=== PATIENT | female | born 1995 | race Caucasian/White ===

== ENCOUNTER 2021-08-12 08:40 | Inpatient (IN) | payer SELFPAY, OTHER ==
[2021-08-12] VITALS (44 sets, daily range): BP systolic 110–141; BP diastolic 57–95; PULSE 78–116; RESP 14; TEMP 36.1–36.6; O2SAT 98–100; BMI 23.9
[2021-08-12] MEDS: Lactated Ringers 1,000 ML 50 ML IV (09:00)
[2021-08-12 09:24] LABS: Absolute Lymphocyte Count 1.52 X10^3/uL (0.83-4.51); Absolute Neutrophil Count 8.1 X10^3/uL (2.0-7.7); Basophil# 0.03 X10^3/uL; Basophil% 0.3 % (0-1); Eosinophil# 0.11 X10^3/uL; Hematocrit 35.5 % (37-47); Hemoglobin 11.9 g/dL (12.0-15.0); Lymphocyte # 1.52 X10^3/ul (0.83-4.51); Lymphocyte % 14.2 % (19-41); Mean Corp Hgb Conc 33.5 g/dL (32-36); Mean Corpuscular Hgb 31.2 pg (27.0-32.0); Mean Corpuscular Volume 93.2 fL (81-99); Mean Platelet Vol. 13.5 fl (6.2-12.0); Monocyte# 0.89 X10^3/uL; Monocyte% 8.3 % (0-10); NRBC Flagged by Analyzer 0 % (0-5); Neutrophil % 75.6 % (47-70); Platelet Count 128 K/mm3 (150-450); RBC Distribution Width CV 13.9 % (11.6-14.6); Red Blood Count 3.81 M/mm3 (4.2-5.4); White Blood Count 10.7 K/mm3 (4.4-11.0)
[2021-08-12] MEDS: Lactated Ringers 500 ML 999 ML IV (12:20)
[2021-08-12] MEDS: fentaNYL-bupivacaine (epidural) 100 ML BAG EPIDURAL (13:16)
--- NOTE | 2021-08-12 13:50 | PCM.HP.OB ---
HPI - General General Date of Admission: 08/12/21 HPI Narrative WENDI RAPHAEL, is a 26 F who presents with ctxs. Maternal Data Information Final EMIR: 08/11/21 Gestational age: 40&1 PFSH [facility] Medical History (Updated 08/12/21 @ 13:[address] Tanvi Franco MD) 40 weeks gestation of Anemia Anxiety IBS (irritable bowel syndrome) Medical History no medical history Home Medications 08/12/21 [History Last Taken Unknown] ferrous sulfate 08/12/21 [History Last Taken Unknown] magnesium 08/12/21 [History Last Taken Unknown] Allergy/AdvReac Type Severity Reaction Status Date / Time No Known Allergies Allergy Verified 08/12/21 08:01 Family History no significant family his Surgical History no surgical history Social History Smoking Status: Former smoker History Elective abortions Hx Para 0 Spontaneous abortions Hx # Term Pregnancies Ectopic pregnancies Hx # Pregnancies Multiple births # of living children NST FHR Rate Baby A Baseline: 135 Variability:: Moderate Accelerations:: 15 x 15 Decelerations:: None Uterine Activity:: Q 3-4 minutes when tracing Vital Signs Vital Signs Vital Signs: 08/12/21 07:24 08/12/21 07:28 08/12/21 07:29 Temperature 97.5 F L Temperature Source Temporal Pulse Rate 91 Blood Pressure 119/72 BP Systolic 119 BP Diastolic 72 Pulse Ox 98 08/12/21 10:05 08/12/21 10:06 08/12/21 10:07 Temperature 97.3 F L Temperature Source Temporal Pulse Rate 85 Blood Pressure 119/72 BP Systolic 119 BP Diastolic 72 Pulse Ox 99 08/12/21 11:39 08/12/21 12:54 08/12/21 12:59 Temperature Temperature Source Pulse Rate 97 98 91 Blood Pressure 124/76 H 112/95 H BP Systolic 124 112 BP Diastolic 76 95 Pulse Ox 100 99 08/12/21 13:04 08/12/21 13:06 08/12/21 13:08 Temperature 97.3 F L Temperature Source Pulse Rate 87 86 Blood Pressure 124/60 H 119/71 BP Systolic 124 119 BP Diastolic 60 71 Pulse Ox 100 08/12/21 13:09 08/12/21 13:10 08/12/21 13:13 Temperature Temperature Source Temporal Pulse Rate 87 88 Blood Pressure 114/67 BP Systolic 114 BP Diastolic 67 Pulse Ox 99 08/12/21 13:14 08/12/21 13:18 08/12/21 13:19 Temperature Temperature Source Pulse Rate 91 89 88 Blood Pressure 115/70 BP Systolic 115 BP Diastolic 70 Pulse Ox 99 99 08/12/21 13:24 08/12/21 13:29 08/12/21 13:30 Temperature Temperature Source Pulse Rate 88 90 Blood Pressure 112/67 112/63 BP Systolic 112 112 BP Diastolic 67 63 Pulse Ox 99 100 Weight Weight: 153 lb 0.013 oz Body Mass Index (BMI) 23.9 Physical Exam Const alert and oriented x3 GI soft to palpation and non-tender Inspection: gravid Narrative: cvx - 12/12/0, AROM clear fluid Labs Labs Labs: Blood Type A NEGATIVE Antibody Screen NEGATIVE Hct 35.5 % (37-47) L Hgb 11.9 g/dL (12.0-15.0) L Assessment & Plan (1) 40 weeks gestation of : COMMENT: 40&1 PLAN: ADmit to L&D Expectant management GBS negative COVID negative Pain - epidural EFW - less than 4500g, patient with adequate pelvis
--- NOTE | 2021-08-12 17:58 | EX.PCM.OBRPT ---
Maternal Data Information Final EMIR: 08/11/21 Gestational age: 40&1 Vaginal Delivery Maternal Presentation Maternal Presentation: Active Labor Operative Information Date of Procedure: 08/12/21 Pre-Operative Diagnosis: Labor Post-Operative Diagnosis: Labor Surgery / Procedure Performed: Spontaneous Vaginal Delivery Type of Anesthesia: Epidural Estimated Blood Loss: 250ml Findings Description of Procedure: Patient prepped & draped when C/C/+2. She pushed well to deliver the head. head gently guided to allow delivery of anterior and posterior shoulders. No excess traction placed on head. Body delivered and 3VC clamped & cut in delayed fashion. Placenta delivered with gentle traction and good uterine tone obtained. Presentation: ANNE Amniotic Membrane Rupture Type: Artificial Amniotic Fluid Description: Clear Placental Delivery Description: Expressed Placenta Disposition: [facility] Specimen(s) Removed: Placenta Cord Vessel Description: 3 Vessels Cord Entanglement: None Infant A Gender: Female (Mei) (1 minute): 9 (5 minute): 9 Delayed Cord Clamping: Yes Post Vaginal Delivery Medications Given After Delivery: IV Pitocin Episiotomy Description: None Laceration: 1st degree (bilateral vaginal - repaired with 3-0 vicryl) Complication Complications: None
[2021-08-12] MEDS: Oxytocin 30 units/NS 500 ml 30 UNITS/500 ML IV.SOLN 334 UNITS IV (18:19)
[2021-08-13] VITALS (12 sets, daily range): BP systolic 109–125; BP diastolic 61–74; PULSE 77–101; RESP 16; TEMP 36.3–36.7; O2SAT 97–99
[2021-08-13] MEDS: Ibuprofen 600 MG Tablet PO ×4 (03:10→21:51)
--- NOTE | 2021-08-13 18:16 | PCM.PN.OB ---
Subjective Subjective No complaints Objective Data Objective Data Vital Signs: Vital Signs Temp Pulse Resp BP Pulse Ox 97.3 F L 98 16 109/65 97 08/13/21 17:30 08/13/21 17:31 08/13/21 17:30 08/13/21 17:31 08/13/21 12:30 Oxygen Delivery Method Room Air Weight: 153 lb 0.013 oz Body Mass Index (BMI) 23.9 Intake & Output: Intake and Output for Last 24 Hours 08/11/21 08/12/21 08/13/21 23:59 23:59 23:59 Intake Total 1999 / 1999 Output Total 1100 / 1100 Balance 900 / 900 Lab / Micro Data Result Diagrams: 08/12/21 09:00 Micro: Microbiology 08/12/21 09:00 Nasal Secretion SARS-CoV-2 Antigen (Rapid) - Final Physical Exam Const alert, oriented x3 and no apparent distress HEENT normocephalic GI soft to palpation, non-tender and non-distended GI Narrative: fundus firm, mid & below umbilicus Extremity normal to inspection and no calf tenderness Assessment & Plan (1) care following vaginal delivery: COMMENT: PPD#1 PLAN: Routine care
[2021-08-14] VITALS (7 sets, daily range): BP systolic 111–121; BP diastolic 60–65; PULSE 75–89; RESP 15–16; TEMP 36.2–36.4; O2SAT 97–98
[2021-08-14] MEDS: Ibuprofen 600 MG Tablet PO (06:41)
--- NOTE | 2021-08-14 11:14 | PCM.PN.OB ---
Subjective Subjective Denies complaints Objective Data Objective Data Vital Signs: Vital Signs Temp Pulse Resp BP Pulse Ox 97.5 F L 83 15 121/65 H 97 08/14/21 08:12 08/14/21 08:14 08/14/21 08:12 08/14/21 08:14 08/14/21 08:12 Oxygen Delivery Method Room Air Weight: 153 lb 0.013 oz Body Mass Index (BMI) 23.9 Intake & Output: Intake and Output for Last 24 Hours 08/12/21 08/13/21 08/14/21 23:59 23:59 23:59 Intake Total 1999 / 1999 Output Total 1100 / 1100 Balance 900 / 900 Lab / Micro Data Result Diagrams: 08/12/21 09:00 Micro: Microbiology 08/12/21 09:00 Nasal Secretion SARS-CoV-2 Antigen (Rapid) - Final Physical Exam Const alert, oriented x3 and no apparent distress HEENT normocephalic GI soft to palpation, non-tender and non-distended GI Narrative: fundus firm, mid & below umbilicus Extremity normal to inspection and no calf tenderness Assessment & Plan (1) care following vaginal delivery: COMMENT: PPD#2 PLAN: D/c to home today
--- NOTE | 2021-08-14 11:15 | PCM.DC ---
Discharge Instructions Diet Discharge Diet: No restrictions Activity Discharge Activity: May Shower May resume sexual activity in: 6 weeks Weight Bearing Status: Weight bearing as tolerated Dressing / Incision Call your doctor if you observe: Fever of 101 or Higher, Coldness, Increased Pain, Change in Color, Inability to urinate, Inability to have a bowel movement, Using more than 1 pad per hour, Shortness of breath, Dizziness, Fainting spells, Chest pain, Increased palpitations (irregular heartbeat), Calf discomfort and Uncontrolled pain Follow Up Care Please Follow Up With: Tanvi Franco MD When: Follow up in 2 and 6 weeks for visits. Test Results: Test results from this visit will be discussed in further detail at your follow-up appointment, if applicable. Discharge Plan Admission Admit Date/Time: 08/12/21 08:40 Primary Reason for Your Visit: Vaginal delivery Attending Provider: Tanvi Franco Discharge Orders/Prescriptions Prescriptions: New acetaminophen 500 mg Tablet 1,000 mg PO Q6H PRN PRN (Reason: Pain 1-10 Or Fever) Qty: 0 RF: 0 ibuprofen 600 mg Tablet 600 mg PO Q6H PRN PRN (Reason: Pain Score 1-3) Qty: 0 RF: 0 Continued magnesium 200 mg Tablet RF: 0 RF: 0 Discontinued ferrous sulfate RF: 0 Disposition Disposition (needs filled in before D/C Order can be placed): Home, Self Care
== END 2021-08-14 13:15 | disposition home or self-care (01) | DRG 807 ==
LOC: WPOUT 08:42 → WP 08:51
PROVIDERS: Admitting Provider Obstetrics & Gynecology; Referring Provider Advanced Practice Midwife; Visit Provider Advanced Practice Midwife
DX: O48.0 Post-term pregnancy (principal); Z37.0 Single live birth; O70.0 First degree perineal laceration during delivery; O99.02 Anemia complicating childbirth; Z20.822 Contact with and (suspected) exposure to COVID-19; Z87.891 Personal history of nicotine dependence; Z3A.40 40 weeks gestation of pregnancy
CPT/HCPCS: 59050; 85025; 86850; 86900; 86901; 87426; 99218; J7120; G0378

== ENCOUNTER → 2024-07-07 | Outpatient (CLI) | payer SELFPAY, OTHER ==
[2024-07-07 10:22] LABS: Absolute Lymphocyte Count 1.44 X10^3/uL (0.83-4.51); Absolute Neutrophil Count 5.8 X10^3/uL (2.0-7.7); Basophil# 0.03 X10^3/uL; Basophil% 0.4 % (0-1); Eosinophil# 0.09 X10^3/uL; Eosinophils% 1.1 % (0-5); Hematocrit 41.9 % (37-47); Hemoglobin 14.1 g/dL (12.0-15.0); Lymphocyte # 1.44 X10^3/ul (0.83-4.51); Lymphocyte % 18.3 % (19-41); Mean Corp Hgb Conc 33.7 g/dL (32-36); Mean Corpuscular Hgb 29.7 pg (27.0-32.0); Mean Corpuscular Volume 88.4 fL (81-99); Mean Platelet Vol. 11.8 fl (6.2-12.0); Monocyte# 0.52 X10^3/uL; Monocyte% 6.6 % (0-10); NRBC Flagged by Analyzer 0 % (0-5); Neutrophil # 5.77 X10^3/uL (2.7-7.7); Neutrophil % 73.2 % (47-70); Platelet Count 215 K/mm3 (150-450); RBC Distribution Width CV 12.2 % (11.6-14.6); RBC Distribution Width SD 39.3 fl (35.1-43.9); Red Blood Count 4.74 M/mm3 (4.2-5.4); White Blood Count 7.9 K/mm3 (4.4-11.0)
[2024-07-07 11:30] LABS: HIV - WCH Non-Reactive (Nonreactive); Hepatitis B Surface Antigen Non-Reactive (Nonreactive); Hepatitis C Antibody Non-Reactive (Nonreactive); Rubella IgG Reactive (Nonreactive); Syphilis Antibodies Non-reactive
[2024-07-08 20:07] LABS: Chlamydia By Nucleic Acid AMP Negative (Negative); Gonococcus By Nucleic Acid AMP Negative (Negative)
[2024-07-14 13:41] LABS: HPV Reflexed? NOT INDICATED
== END | disposition home or self-care (01) ==
LOC: BWCLAB 09:48
PROVIDERS: Referring Provider Advanced Practice Midwife; Visit Provider Advanced Practice Midwife
DX: O09.90 Supervision of high risk pregnancy, unspecified, unspecified trimester (principal); Z3A.00 Weeks of gestation of pregnancy not specified
CPT/HCPCS: 36415; 85025; 86703; 86762; 86780; 86803; 86850; 86900; 86901; 87086; 87088; 87340; 87491; 87591; 88175; G0145

== ENCOUNTER → 2024-09-24 | Outpatient (CLI) | payer OTHER, SELFPAY ==
--- NOTE | 2024-09-24 15:33 | US_ITS ---
PROCEDURE: ultrasound. REASON FOR EXAM: Cervical length and anatomy. COMPARISON: 07/07/2024 FINDINGS Single live intrauterine gestation in variable position. Cervical length 4.9 cm, closed. The placenta is posterior, grade 0. No retroplacental fluid collection. No gross anomalies are demonstrated. Biparietal diameter is 4.3 cm, at the 5th percentile. Head circumference is 17.5 cm, at the 29th percentile. Abdominal circumference is 15.9 cm, at the 68th percentile. Femur length is 3.1 cm, at the 19th percentile. There appears to be a three-vessel cord. heart rate 153 beats per minute. Facial features are grossly intact. Visualized extremities appear intact. cord insertion appears intact. Amniotic fluid level subjectively normal. No gross evidence of placenta previa. There appears to be a four-chamber heart. Questionable tiny echogenic cardiac focus versus artifact. US/OB Anatomy w/ Transvaginal IMPRESSION: Single live intrauterine gestation in variable position. Estimated gestational age by ultrasound 19 weeks, 5 days. No gross anomalies are demonstrated. Questionable tiny cardiac echogenic focus versus artifact. Please see measurements and percentiles as above. Amniotic fluid level is subjectively normal. Posterior placenta. Cervical length 4.9 cm, closed. Reading Location: [facility]
== END | disposition home or self-care (01) ==
LOC: US 15:31
PROVIDERS: Referring Provider Obstetrics & Gynecology; Visit Provider Obstetrics & Gynecology
DX: O09.90 Supervision of high risk pregnancy, unspecified, unspecified trimester (principal); Z3A.00 Weeks of gestation of pregnancy not specified
CPT/HCPCS: 76805; 76817

== ENCOUNTER → 2024-11-19 | Outpatient (CLI) | payer OTHER, SELFPAY ==
[2024-11-19 11:53] LABS: Absolute Lymphocyte Count 1.19 X10^3/uL (0.83-4.51); Absolute Neutrophil Count 5.9 X10^3/uL (2.0-7.7); Basophil# 0.03 X10^3/uL; Basophil% 0.4 % (0-1); Eosinophil# 0.08 X10^3/uL; Hematocrit 34.1 % (37-47); Hemoglobin 11.6 g/dL (12.0-15.0); Lymphocyte # 1.19 X10^3/ul (0.83-4.51); Lymphocyte % 15.5 % (19-41); Mean Corpuscular Hgb 31.4 pg (27.0-32.0); Mean Corpuscular Volume 92.4 fL (81-99); Mean Platelet Vol. 12.6 fl (6.2-12.0); Monocyte# 0.47 X10^3/uL; Monocyte% 6.1 % (0-10); NRBC Flagged by Analyzer 0 % (0-5); Neutrophil # 5.88 X10^3/uL (2.7-7.7); Neutrophil % 76.4 % (47-70); Platelet Count 149 K/mm3 (150-450); RBC Distribution Width CV 12.9 % (11.6-14.6); RBC Distribution Width SD 43.6 fl (35.1-43.9); Red Blood Count 3.69 M/mm3 (4.2-5.4); White Blood Count 7.7 K/mm3 (4.4-11.0)
[2024-11-19 12:19] LABS: Glucose Challenge Gest 1H 50g 151 mg/dL (70-140)
[2024-11-19 12:40] LABS: HIV Nonreactive (Nonreactive); Syphilis Antibodies Nonreactive (Nonreactive)
== END | disposition home or self-care (01) ==
PROVIDERS: Obstetrics & Gynecology; Referring Provider Advanced Practice Midwife; Visit Provider Advanced Practice Midwife
DX: O09.92 Supervision of high risk pregnancy, unspecified, second trimester (principal); Z3A.22 22 weeks gestation of pregnancy; Z13.1 Encounter for screening for diabetes mellitus
CPT/HCPCS: 36415; 82950; 85025; 86703; 86780; 86850; 86900; 86901

== ENCOUNTER → 2024-11-25 | Outpatient (CLI) | payer OTHER, SELFPAY ==
[2024-11-25 07:40] LABS: Glucose GTT-Gestation. Fasting 87 mg/dL (<105)
[2024-11-25 10:51] LABS: Glucose GTT-Gestational 1 Hr 116 mg/dL (<190)
[2024-11-25 11:00] LABS: Glucose GTT-Gestational 2 Hr 113 mg/dL (<165)
[2024-11-25 12:19] LABS: Glucose GTT-Gestational 3 Hr 95 L (<145)
== END | disposition home or self-care (01) ==
LOC: LAB 07:10
PROVIDERS: Referring Provider Advanced Practice Midwife; Visit Provider Advanced Practice Midwife
DX: Z13.1 Encounter for screening for diabetes mellitus (principal)
CPT/HCPCS: 36415; 82951; 82952

== ENCOUNTER → 2024-12-26 | Outpatient (CLI) | payer OTHER, SELFPAY ==
[2024-12-26 11:32] LABS: Absolute Lymphocyte Count 1.47 X10^3/uL (0.83-4.51); Basophil# 0.02 X10^3/uL; Basophil% 0.2 % (0-1); Eosinophil# 0.09 X10^3/uL; Hematocrit 33.4 % (37-47); Hemoglobin 11.2 g/dL (12.0-15.0); Lymphocyte # 1.47 X10^3/ul (0.83-4.51); Lymphocyte % 15.6 % (19-41); Mean Corp Hgb Conc 33.5 g/dL (32-36); Mean Corpuscular Hgb 31.4 pg (27.0-32.0); Mean Corpuscular Volume 93.6 fL (81-99); Mean Platelet Vol. 12.9 fl (6.2-12.0); Monocyte# 0.79 X10^3/uL; Monocyte% 8.4 % (0-10); NRBC Flagged by Analyzer 0 % (0-5); Neutrophil # 6.95 X10^3/uL (2.7-7.7); Neutrophil % 73.4 % (47-70); Platelet Count 144 K/mm3 (150-450); RBC Distribution Width SD 44.1 fl (35.1-43.9); Red Blood Count 3.57 M/mm3 (4.2-5.4); White Blood Count 9.5 K/mm3 (4.4-11.0)
== END | disposition home or self-care (01) ==
PROVIDERS: Obstetrics & Gynecology; Referring Provider Obstetrics & Gynecology; Visit Provider Obstetrics & Gynecology
DX: O99.119 Other diseases of the blood and blood-forming organs and certain disorders involving the immune mechanism complicating pregnancy, unspecified trimester (principal); D69.6 Thrombocytopenia, unspecified; Z3A.00 Weeks of gestation of pregnancy not specified
CPT/HCPCS: 36415; 85025

== ENCOUNTER → 2025-01-02 | Outpatient (CLI) | payer OTHER, SELFPAY ==
--- NOTE | 2025-01-02 08:40 | US_ITS ---
PROCEDURE: OB LIMITED WITH BIOMETRICS 01/02/2025 REASON FOR EXAM: UTERINE SIZE LESS THAN DATES TECHNIQUE: High resolution obstetric ultrasound performed using a 2D transducer. Standard views obtained, including biometry, anatomy survey, and Doppler studies. COMPARISON: September 24, 2024. FINDINGS Number: 1 Position: Vertex Placental Position: Posterior and not low-lying. Placental Abnormalities: None DIMENSIONS: Biparietal Diameter: 8.42 cm: 33 weeks and 6 days: 31%/ Head Circumference: 30.8 cm: 34 weeks and 2 days: 13 percentile/ Abdominal Circumference: 29.38 cm: 33 weeks and 3 days: 22nd percentile/ Femur Length: 6.77 cm: 34 weeks and 6 days: 48 percentile/ ESTIMATED WEIGHT: 2325 g plus/-349 g ESTIMATED WEIGHT PERCENTILE (24+ weeks): 30 ESTIMATED GESTATIONAL AGE: Baseline: 34 weeks and 4 days By Ultrasound: 33 weeks and 6 days ESTIMATED DATE OF DELIVERY: Baseline: February 09, 2025 By Ultrasound: February 14, 2025 BIOPHYSICAL ASSESSMENT: Amniotic Fluid Volume: 3.6 cm x 3 cm Amniotic Fluid Index: 9.7 (8-24 cm normal range) Cardiac Motion: 156 beats per minute (average) Trunk and Limb Motion: Present. MATERNAL ANATOMY: Adnexa: 3.1 cm Cervical Length (if measured): US/OB Limited With Biometrics IMPRESSION: Single live intrauterine gestation with a mean gestational age of 33 weeks and 6 days. Reading Location: [place] [id number]
== END | disposition home or self-care (01) ==
LOC: US 08:39
PROVIDERS: Referring Provider Advanced Practice Midwife; Visit Provider Advanced Practice Midwife
DX: O26.843 Uterine size-date discrepancy, third trimester (principal); Z3A.33 33 weeks gestation of pregnancy
CPT/HCPCS: 76816

== ENCOUNTER → 2025-01-12 | Outpatient (CLI) | payer OTHER, SELFPAY | END | disposition home or self-care (01) | LOC: LABSPEC 11:54 | PROVIDERS: Referring Provider Obstetrics & Gynecology; Visit Provider Obstetrics & Gynecology | DX: O09.90 Supervision of high risk pregnancy, unspecified, unspecified trimester (principal); Z3A.00 Weeks of gestation of pregnancy not specified | CPT/HCPCS: 87081 ==

== ENCOUNTER 2025-01-21 16:07 | Outpatient (CLI) | payer OTHER, SELFPAY ==
[2025-01-21 16:24] VITALS: BP 128/74; PULSE 94
[2025-01-21 16:25] VITALS: PULSE 99; RESP 16; TEMP 36.5; O2SAT 98
[2025-01-21 16:26] VITALS: BMI 24.1
--- NOTE | 2025-01-21 16:30 | US_ITS ---
PROCEDURE: OB LIMITED (NO BIOMETRICS) 01/21/2025 REASON FOR EXAM: NO BIOMETRICS [place] ONLY TECHNIQUE: OB LIMITED (NO BIOMETRICS) COMPARISON: 01/02/2025. FINDINGS Single live intrauterine . Cephalic presentation. heart rate of 141 beats per minute. Amniotic fluid index of 6.3 cm. Placenta grade 1. Right lateral and posteriorly located placenta. No evidence of previa. US/OB Limited (No Biometrics) IMPRESSION: [place] of 6.3 cm. Reading Location: [place] [id number]
--- NOTE | 2025-01-25 12:12 | OB.TRI.PN_ITS ---
Progress Notes Date of Service: 01/21/25 Progress Note: Patient presents for triage evaluation secondary to uterine size date discrepancy FHT: 135 Moderate variability reactive no decelerations category I tracing [place]: no regular Contractions Assessment and plan: uterine size date discrepancy 37 weeks db 6 cm Reactive NST, reassuring maternal and status patient discharged to home to follow- up as scheduled. See problem list details for additional plan information. Charges/Coding Procedures Urinary/Genital [id number]: [id number] non-stress test Interp
== END 2025-01-21 18:05 | disposition home or self-care (01) ==
LOC: WPOUT 16:17 → WP 16:17
PROVIDERS: Referring Provider Obstetrics & Gynecology; Visit Provider Obstetrics & Gynecology
DX: O26.843 Uterine size-date discrepancy, third trimester (principal); O99.113 Other diseases of the blood and blood-forming organs and certain disorders involving the immune mechanism complicating pregnancy, third trimester; D69.6 Thrombocytopenia, unspecified; O99.810 Abnormal glucose complicating pregnancy; O26.893 Other specified pregnancy related conditions, third trimester; Z67.91 Unspecified blood type, Rh negative; O09.93 Supervision of high risk pregnancy, unspecified, third trimester; Z3A.37 37 weeks gestation of pregnancy; Z87.891 Personal history of nicotine dependence
CPT/HCPCS: 59025; 59050; 76815; 99221; G0378

== ENCOUNTER → 2025-01-26 | Outpatient (CLI) | payer SELFPAY, OTHER ==
[2025-01-26 17:15] LABS: Absolute Lymphocyte Count 1.15 X10^3/uL (0.83-4.51); Basophil# 0.03 X10^3/uL; Basophil% 0.4 % (0-1); Eosinophil# 0.06 X10^3/uL; Eosinophils% 0.7 % (0-5); Hematocrit 35.1 % (37-47); Hemoglobin 11.5 g/dL (12.0-15.0); Lymphocyte # 1.15 X10^3/ul (0.83-4.51); Lymphocyte % 14.1 % (19-41); Mean Corp Hgb Conc 32.8 g/dL (32-36); Mean Corpuscular Hgb 31.3 pg (27.0-32.0); Mean Corpuscular Volume 95.4 fL (81-99); Mean Platelet Vol. 13.6 fl (6.2-12.0); Monocyte# 0.84 X10^3/uL; Monocyte% 10.3 % (0-10); NRBC Flagged by Analyzer 0 % (0-5); Neutrophil # 6.02 X10^3/uL (2.7-7.7); Neutrophil % 73.9 % (47-70); Platelet Count 125 K/mm3 (150-450); RBC Distribution Width CV 14.2 % (11.6-14.6); RBC Distribution Width SD 49.4 fl (35.1-43.9); Red Blood Count 3.68 M/mm3 (4.2-5.4); White Blood Count 8.2 K/mm3 (4.4-11.0)
== END | disposition home or self-care (01) ==
LOC: BWCLAB 14:51
PROVIDERS: Referring Provider Obstetrics & Gynecology; Visit Provider Obstetrics & Gynecology
DX: O99.119 Other diseases of the blood and blood-forming organs and certain disorders involving the immune mechanism complicating pregnancy, unspecified trimester (principal); D69.6 Thrombocytopenia, unspecified; Z3A.00 Weeks of gestation of pregnancy not specified
CPT/HCPCS: 36415; 85025

== ENCOUNTER 2025-01-27 07:19 | Inpatient (IN) | payer SELFPAY, OTHER ==
[2025-01-27] VITALS (50 sets, daily range): BP systolic 101–143; BP diastolic 53–95; PULSE 78–108; RESP 16–19; TEMP 36.2–36.9; O2SAT 96–100; BMI 24.0
--- OUTSIDE RECORDS SUMMARY | 2025-01-27 07:04 | XMS RPT_ITS | CCD ---
Author Organization [facility] CliniSyfl Care Team Providers Care Photography Coordinator Name Role Phone Ginny VIRGEN MD, Frank A Primary Care Provider Barbie vailable Mg oV DO, Dr. Caputo Attending Provider Dahlia Spring CNM Attending Provider [phone] Care Physician, No Primary Primary Care Provider Unavailable Care Physician, No Primary Referring Provider Un available Dr. Patito Arzola DO Referring Provider Dr. Jena Campos MD Attending Provider [phone] Dahlia Spring CNM Referring Provider [phone] Dr. Patito Arzola DO Attending Provider Dr. Jena Campos MD Referring Provider [phone] Care Physician, No Primary Primary Care Provider Unavailable Dahlia Spring CNM Attending Provider [phone] Care Physician, No Primary Referring Provider Un available Care Physician, No Primary Primary Care Provider Unavailable Dr. Patito Arzola DO Attending Provider Dr. Patito Arzola DO Referring Provider Dr. Jena Campos MD Other Provider [phone] Care Physician, No Primary Primary Care Unava ilable Dahlia Spring Referring Unavailable Dahlia Spring Attending Unavailable Care Physician, No Primary Primary Care Unava ilable Patito Arzola Attending Unavailabl e Care Physician, No Primary Referring Unava ilable Jena Campos Referring Unavailable Jena Campos Attending Unavailable Care Physician, No Primary Primary Care Unava ilable Dahlia Spring Attending Unavailable Patito Arzola Attending Unavailabl Dahlia Martin Referring Unavailable Dahlia Spring Attending Unavailable Jena Campos Referring Unavailable Jena Capmos Attending Unavailable Care Physician, No Primary Primary Care Unava ilable Jena Campos Attending Unavailable Care Physician, No Primary Primary Care Unava ilable Jena Campos Admitting Unavailable Mg VelPatito sawant Referring Unavailabl e Vande Velde, Patito Attending Unavailabl e Care Physician, No Primary Primary Care Unava ilable Vande Velde, Patito Attending Unavailabl e Vande Velde, Patito Referring Unavailabl e Care Physician, No Primary Primary Care Unava ilable Care Physician, No Primary Primary Care Unava ilable Care Physician, No Primary Referring Unava ilable Dahlia Spring Attending Unavailable Care Physician, No Primary Referring Unava ilable Bimale Gilda, Patito Attending Unavailabl e Care Physician, No Primary Primary Care Unava ilable Care Physician, No Primary Primary Care Unava ilable Care Physician, No Primary Referring Unava ilable Dahlia Spring Attending Unavailable Care Physician, No Primary Referring Unava ilable Dahlia Spring Attending Unavailable Care Physician, No Primary Primary Care Unava ilable Care Physician, No Primary Referring Unava ilable Care Physician, No Primary Primary Care Unava ilable Dahlia Spring Attending Unavailable Care Physician, No Primary Referring Unava ilable Care Physician, No Primary Primary Care Unava ilable Dahlia Spring Attending Unavailable Jena Campos Referring Unavailable Jnea Campos Attending Unavailable Care Physician, No Primary Primary Care Unava ilable Jena Campos Consulting Unavailable Care Physician, No Primary Referring Unava ilable Care Physician, No Primary Primary Care Unava ilable Dahlia Spring Attending Unavailable Care Physician, No Primary Referring Unava ilable Jena Campos Attending Unavailable Care Physician, No Primary Primary Care Unava ilable Care Physician, No Primary Referring Unava ilable Patito Arzola Attending Unavailabl e Care Physician, No Primary Primary Care Unava ilable Care Physician, No Primary Primary Care Unava ilable Dahlia Spring Referring Unavailable Dahlia Spring Attending Unavailable Dahlia Spring Attending Unavailable Dahlia Spring Referring Unavailable Care Physician, No Primary Primary Care Unava ilable Bimale VeldePatito Referring Unavailabl e Vande Velde, Patito Attending Unavailabl e Care Physician, No Primary Primary Care Unava ilable Allergies Allergy Classification Reported Allergen(s) Allergy Type Date of Onset Reaction(s) Facility (2 sources) Seasonal allergy Allergy to substance 4 Other: See Comments [facility] Medications Current Medications Medication Drug Class(es) Dates Sig (Normalized) Sig (Original) Iron (10 sources) Start: 06-27-2024 Pnv No.108-Tvgj-Ayvbnm No.10 (Pnv Tabs 20-1) 20 mg iron- 1 mg tablet Active 1 {tbl} PO DAILY June 27, 2024 1:00am Start: 06-27-2024 Pnv No.163-Iro n-Folate No.10 (Pnv Tabs 20-1) 20 mg iron- 1 mg tablet Active {tbl} PO DAILY June 27, 2024 1:00am iron supplement (7 sources) Start: 12-31-2024 iron supplemen t Active 1 {tbl} PO DAILY December 31, 2024 12:00am Start: 12-31-2024 iron supplemen t Active PO December 31, 2024 12:00am Magnesium (20 sources) Start: 06-27-2024 Magnesium 200 mg tablet Active 330 mg PO daily June 27, 2024 10:03am Start: 08-12-2021 End: 06-27-2024 Magnesium 200 mg Tablet Disc ontinued August 12, 2021 1:00am June 27, 2024 10:06am Completed/Discontinued Medications Medication Drug Class(es) Dates Sig (Normalized) Sig (Original) acetaminophen 500 mg oral tablet (10 sources) Start: 08-14-2021 End: 01-21-2025 take 1-10 tablets by mouth every six hours as needed for pain Acetaminophen 500 mg Tablet Discontinued 1000 mg PO EVERY 6 HOURS NEEDED as needed for Pain 1-10 Or Fever 0 August 14, 2021 1:00am January 21, 2025 4:29pm ferrous sulfate (12 sources) Start: 08-12-2021 End: 08-14-2021 ferrous sulfate Discontinued August 12, 2021 1:00am August 14, 2021 12:18pm take 1 tablet by jumana once daily at breakfast ferrous sulfate (IRON) 325 mg (65 mg iro n) tablet Take 325 mg by mouth daily with breakfast. Taking M W F 0 Active Comment on above: Take 325 mg by mouth daily with breakfast. Taking W F ibuprofen 600 mg oral tablet (10 sources) Nonsteroidal Anti-inflammatory Drug Start: 08-14-19 End: 06-27-20 take 1 tablet by mouth every six hours as needed for pain Ibuprofen 600 mg Tablet Discontinued 600 mg PO EVERY 6 HOURS NEEDED as needed for Pain Score 1-3 0 August 14, 2021 1:00am June 27, 2024 10:03am ondansetron 4 mg disintegrating oral tablet (10 sources) Serotonin-3 Receptor Antagonist Start: 07-07-20 End: 01-22-20 take 1 tablet by mouth every six hours as needed for nausea and vomiting Ondansetron 4 mg tablet,disintegrati ng Discontinued 4 mg PO EVERY 6 HOURS as needed for nausea and vomiting 90 July 07, 2024 1:00am January 21, 2025 4:28pm (10 sources) Start: 08-12-19 End: 06-27-20 Discontinued August 12, 2021 1:00am June 27, 2024 10:02am Udqfcskd-Wt-Zfa-Fe-FA ( VITAMIN) tab (2 sources) take 1 tablet by mouth once Gpniyspb-Kd-Tgn-Fe- FA ( VITAMIN) tab Take 1 tablet by mouth. 0 Active Comment on above: Take 1 tablet by jumana th. vitamin b6 100 mg oral tablet (10 sources) Start: 06-27-20 End: 01-22-20 take 1 tablet by mouth once daily Pyridoxine (Vitamin B6) 100 mg tablet Discontinued 100 mg PO daily June 27, 2024 1:00am January 21, 2025 4:28pm Problems Active Problems Problem Classification Problem Date Documented Da te Episodic/Chronic Anxiety disorders (10 sources) Anxiety; Translations: [Anxiety disorder, unspecified] 06-27-2024 Chronic Coagulation and hemorrhagic disorders (1 source) Thrombocytopenia, unspecified; Translations: [Thrombocytopenia, unspecified] Onset: Chronic Deficiency and other anemia (10 sources) Anemia; Translations: [Anemia, unspecified] 06-27-2024 Episodic Diabetes or abnormal glucose tolerance complicating ; childbirth; or the puerperium (20 sources) Abnormal glucose level; Translations: [Abnormal glucose complicating ] Onset: 5 11-20-2024 Episodic Comment on above: needs 3 hours passed 3 hour Nonmalignant breast conditions (1 source) Lump in upper outer quadrant of right breast; Translations: [Unspecified lump in the right breast, upper outer quadrant] Episodic Other complications of (20 sources) High risk ; Translations: [Supervision of high risk , unspecified, unspecified trimester] 11-19-2024 Episodic Comment on above: PRR, , EMIR 5, boy PC Mei, Siobhan. nl anatomy Other complications of (20 sources) Thrombocytopenic disorder; Translations: [Other diseases of the blood and blood-forming organs and certain disorders involving the immune mechanism complicating , unspecified trimester] 11-20-2024 Episodic Comment on above: repeat at 32 weeks repeat at 32 weeks - order in repeat at 32 weeks-s table-144 Other complications of (20 sources) RhD negative; Translations: [Other specified related conditions, unspecified trimester] 11-19-2024 Episodic Comment on above: Rhogam at 28 weeks a nd PRN, O- patient to bring paper to scan in at next visit. Other complications of (20 sources) Fundal height high for dates; Translations: [Uterine size-date discrepancy, unspecified trimester] 12-31-2024 Episodic Comment on above: ultrasound 01/02- % AC 21. normal DB Other complications of (1 source) Uterine size-date discrepancy, unspecified trimester; Translations: [Uterine size-date discrepancy, unspecified trimester] Onset: Episodic Other complications of (1 source) Other diseases of the blood and blood-forming organs and certain disorders involving the immune mechanism complicating , unspecified trimester; Translations: [Other diseases of the blood and blood-forming organs and certain disorders involving the immune mechanism complicating , unspecified trimester] Onset: 5 Episodic Other complications of (1 source) Other specified related conditions, unspecified trimester; Translations: [Other specified related conditions, unspecified trimester] Onset: Episodic Other complications of (1 source) Supervision of high risk , unspecified, unspecified trimester; Translations: [Supervision of high risk , unspecified, unspecified trimester] Onset: Episodic Other complications of (1 source) Supervision of high risk , unspecified, second trimester; Translations: [Supervision of high risk , unspecified, second trimester] Onset: 5 Episodic Other gastrointestinal disorders (12 sources) Irritable bowel syndrome; Translations: [Irritable bowel syndrome without diarrhea] Onset: 5 01-19-2015 Chronic Other inflammatory condition of skin (2 sources) Scalp psoriasis; 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, 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 04-06-2010 Chronic Other and delivery including normal (20 sources) care status; Translations: [Encounter for routine follow-up] 06-27-2024 Episodic Comment on above: PPD#2 declined NIPT & ntd, Carrier testing Other screening for suspected conditions (not mental disorders or infectious disease) (1 source) Encounter for screening for diabetes mellitus; Translations: [Encounter for screening for diabetes mellitus] Onset: 5 Episodic Residual codes; unclassified (10 sources) Gestation period, 40 weeks; Translations: [40 weeks gestation of ] 08-22-2021 Episodic Comment on above: 40&1 Residual codes; unclassified (1 source) Unspecified blood type, Rh negative; Translations: [Unspecified blood type, Rh negative] Onset: 5 Episodic Residual codes; unclassified (1 source) 38 weeks gestation of ; Translations: [38 weeks gestation of ] Onset: 5 Episodic Residual codes; unclassified (1 source) 37 weeks gestation of ; Translations: [37 weeks gestation of ] Onset: 5 Episodic Residual codes; unclassified (1 source) 36 weeks gestation of ; Translations: [36 weeks gestation of ] Onset: 5 Episodic Residual codes; unclassified (1 source) 26 weeks gestation of ; Translations: [26 weeks gestation of ] Onset: 5 Episodic Screening and history of mental health and substance abuse codes (20 sources) H/O: anxiety state; Translations: [Personal history of other mental and behavioral disorders] Onset: 1 01-06-2021 Episodic Comment on above: Quit 10 yr ago Short gestation; low weight; and growth retardation (2 sources) growth restriction; Translations: [ growth retardation, unspecified, unspecified [weight]] 01-26-2025 Episodic Comment on above: <2.5% on growth scan in our office and DB of 6.5 at 38 weeks. IOl set up for 01/27/25 Past or Other Problems Problem Classification Problem Date Documented Da te Episodic/Chronic Diabetes mellitus without complication (2 sources) Increased glucose level; Translations: [Other abnormal glucose] Onset: 05-26-2021 06-09-2021 Episodic Other complications of (1 source) Vomiting of , unspecified; Translations: [Vomiting of , 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7-07-2024 Episodic Residual codes; unclassified (2 sources) Down's child in family; Translations: [Family history of other congenital malformations, deformations and chromosomal abnormalities] Onset: 01-06-2021 01-06-2021 Episodic Residual codes; unclassified (1 source) 22 weeks gestation of ; Translations: [22 weeks gestation of ] Onset: 10-08-2024 Episodic Residual codes; unclassified (1 source) 18 weeks gestation of ; Translations: [18 weeks gestation of ] Onset: 09-10-2024 Episodic Residual codes; unclassified (1 source) 9 weeks gestation of ; Translations: [9 weeks gestation of ] Onset: 07-07-2024 Episodic Viral infection (2 sources) Herpes zoster without complication; Translations: [Zoster without complications] Onset: 05-23-2018 05-23-2018 Episodic Results Test Name Value Interpretation Reference Range Facility CBC W/Diff, Automatedon 01-05 Absolute Lymph 1.15 X10 3/uL Normal 0.83-4.51 [facility] Comment on above: Performed By: #### L 100.0100 ####[facility] [address] [place], [address] Absolute Neut 6.0 X10 3/uL Normal 2.0-7.7 [facility] Comment on above: Performed By: #### L 100.0100 ####[facility] [address] [facility] [place], [address] Basophils/100 WBC (Bld) 0.4 % Normal 0-1 [facility] Comment on above: Performed By: #### L 100.0100 ####[facility] [address] [place], [address] Eosinophils/100 WBC (Bld) 0.7 % Normal 0-5 [facility] Comment on above: Performed By: #### L 100.0100 ####[facility] [address] [place], [address] Erythrocyte distribution width (RBC) [Ratio] 14.2 % Normal 11.6-14.6 [facility] Comment on above: Performed By: #### L 100.0100 ####[facility] [address] [place], [address] Hematocrit (Bld) [Volume fraction] 35.1 % Low 37-47 [facility] Comment on above: Performed By: #### L 100.0100 ####[facility] [address] [place], [address] Hemoglobin (Bld) [Mass/Vol] 11.5 g/dL Low 12.0-15.0 [facility] Comment on above: Performed By: #### L 100.0100 ####[facility] [address] [place], [address] IG% 0.600 Normal 0.0-0.9 [facility] Comment on above: Result Comment: IG% - Immature Granulocytes (promyelocytes, myelocytes and metamyelocytes) > 1% indicates that a LEFT SHIFT is Present. Performed By: #### L 100.0100 ####[facility] [address] [place], [address] Lymphocytes/100 WBC (Bld) 14.1 % Low 19-41 [facility] Comment on above: Performed By: #### L 100.0100 ####[facility] [address] [place], [address] MCH (RBC) [Entitic mass] 31.3 pg Normal 27.0-32.0 [facility] Comment on above: Performed By: #### L 100.0100 ####[facility] [address] [place], [address] MCHC (RBC) [Mass/Vol] 32.8 g/dL Normal 32-36 [facility] Comment on above: Performed By: #### L 100.0100 ####[facility] [address] [place], [address] MCV (RBC) [Entitic vol] 95.4 fL Normal 81-99 [facility] Comment on above: Performed By: #### L 100.0100 ####[facility] [address] [place], [address] Monocytes/100 WBC (Bld) 10.3 % High 0-10 [facility] Comment on above: Performed By: #### L 100.0100 ####[facility] [address] [place], [address] Neutrophils/100 WBC (Bld) 73.9 % High 47-70 [facility] Comment on above: Performed By: #### L 100.0100 ####[facility] [address] [place], [address] Nucleated RBC (Bld) [#/Vol] 0 10*3/uL Normal 0-5 [facility] Comment on above: Performed By: #### L 100.0100 ####[facility] [address] [place], [address] Platelet mean volume (Bld) [Entitic vol] 13.6 fL High 6.2-12.0 [facility] Comment on above: Performed By: #### L 100.0100 ####[facility] [address] [place], [address] Platelets (Bld) [#/Vol] 125 10*3/uL Low 150-450 [facility] Comment on above: Performed By: #### L 100.0100 ####[facility] [address] [place], [address] RBC (Bld) [#/Vol] 3.68 10*6/uL Low 4.2-5.4 [facility] Comment on above: Performed By: #### L 100.0100 ####[facility] [address] [place], [address] RDW SD 49.4 fl High 35.1-43.9 [facility] Comment on above: Performed By: #### L 100.0100 ####[facility] [address] [place], [address] WBC (Bld) [#/Vol] 8.2 10*3/uL Normal 4.4-11.0 [facility] Comment on above: Performed By: #### L 100.0100 ####[facility] [address] [place], [address] Shop Teacher Office Visit Reporton 01-26-2025 Shop Teacher Office Visit Report [facility] [address], [address] [place] [address] OFFICE VISIT Date of Service: 01/26/25 MR#: [id number] Acct: [id number] Name: KATELYN ANTOINE Rep #: [id number] : 1995 Provider: Dr. Patito Schuler DO Age/Sex: 29/F Location: [facility] Status: Signed Intake Vital Signs 01/21/25 16:26 01/26/25 13:50 01/26/25 13:50 Height 5 ft 7 in 5 ft 7 in 5 ft 7 in Weight: 153 lb 4 oz BMI 24.0 BP 128/73 H Intake Visit Reasons: 38w, Amniotic fluid check per Power Screwdriver Operator Required: No Is patient in pain?: No Allergies No Known Allergies Allergy (Verified 01/26/25 13:50) Medications ???Medication ???Instructions ???Recorded ???Confirmed ???Type magnesium 200 mg tablet 330 mg PO QDAY 06/27/24 01/26/25 H istory vitamins no.163-iron 1 tab PO DAILY 06/27/24 01/26/25 H istory bis-gly 20 mg-folate no.10 1 mg tablet (PNV Tabs 20-1) iron supplement 1 tab PO DAILY 12/31/24 01/26/25 H istory Last Menstrual Period: 05/05/24 Zika: Zika virus screening: Negative : No PFSH PFSH Medical History Seasonal allergies care following vaginal delivery 40 weeks gestation of Anemia IBS (irritable bowel syndrome) Anxiety Social History adopted: No household members: spouse and children number of children: 1 current occupational status: unemployed current occupation: [employer] pets and animals: Yes pets and animals: dog(s) history of recent travel: Yes ([place]) out of state: Yes out of country: No sexually active: Yes Smoking Status: Former smoker how long ago did patient quit smokin years alcohol intake: current alcohol intake frequency: holidays/special occasions only details: Not while substance use type: does not use well-balanced diet: daily or most days caffeine: Yes Type: coffee Number of servings: 1 eating out: 1-3 times/week during the past year weight has: remained stable what type of physical activity do you participate in: none conrad/hinduism: Adventism seatbelt use: sometimes do you feel safe at home: Yes additional social history: - [place]- 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 Date Name GA/Weeks Outcome Route Bth Weight Infant Gen Labor Lgth Anesthesia Del Locatn Provider FOB 08/12/21 Mei 40 live - full term 6#12oz Female 12hr epidural [facility]han Delivery Date: 08/12/21 Last Updated by: Fide Landis no complications HPI 38w, Amniotic fluid check per Details: KATELYN ANTOINE is a 29 year old who presents for routine OB visit. OB Visit EMIR Calculator Estimated Delivery Date Method Current WG Current Estimate 02/09/25 Ultrasound #1 38w 0d Other Estimates 02/09/25 LMP (Certain) 38w 0d Expected Delivery Route/Plan Labor Preferences- CB/BF classes: [] labor support person: [] labor intervention preferences: [] pain management options preferred: [] cut cord/dad catch: [] : [] PP control planned: [] discussed possible routes of delivery and associated risks: [] special requests: [] Specific Issue/Plans Covid status: [] Flu vaccine: [] Tdap vaccine: [] Rhogam: [] LARC form signed: [] Problem list reviewed and updated with the most current plan of care details and appropriate orders placed. Relevant counseling for the gestational age provided. Continue routine care and follow up unless otherwise noted in visit notes/problem list details Initial Weight: 117 lb Date -???-???-???-???-?? ?-???-???-???-???-? ??-???-???- EGA Weight BP Urine Prot -???-???-???-???-?? ?-???-???-???-???-? ??-???-???- Glucose FHR FuHt Pres Dilation -???-???-???-???-?? ?-???-???-???-???-? ??-???-???- Effaced St Visit Note 07/07/24 -???-???-???-???-?? ?-???-???-???-???-? ??-???-???- 9w 0d 117 lb (+0 oz) 131/81 -???-???-???-???-?? ?-???-???-???-???-? ??-???-???- 175 -???-???-???-???-?? ?-???-???-???-???-? ??-???-???- KW- CRL cons with dates. declines NIPT. would like [facility] appts. 08/12/24 -???-???-???-???-?? ?-???-???-???-???-? ??-???-???- 14w 1d 116 lb 8 oz (-8 oz) 108/72 Negative -???-???-???-???-?? ?-???-???-???-???-? ??-???-???- Negative 170 -???-???-???-???-?? ?-???-???-???-???-? ??-???-???- JV- no compl aints today. bedside us shows 14 week IUP. Plans [facility] anatomy scan. 09/10/24 -???-???-???-???-?? ?-???-???-???-???-? ??-???-???- 18w 2d 124 lb (+7 lb) 118/68 Negative (more content not included)... Normal [facility] OB Triage Progress Noteon OB Triage Progress Note [facility] Medical Records Department [address] [place] [address] OB Triage Progress Note 01/25/25 1212 MR#: [id number] Acct: [id number] Name: KATELYN ANTOINE Rep #: [id number] : 1995 29 From: Jena Campos MD PCP: Care Physician,No Primary Status:DEP CLI Y DOS: Location: WPOUT Progress Notes Date of Service: 01/21/25 Progress Note: Patient presents for triage evaluation secondary to uterine size date discrepancy FHT: 135 Moderate variability reactive no decelerations category I tracing [place]: no regular Contractions Assessment and plan: uterine size date discrepancy 37 weeks db 6 cm Reactive NST, reassuring maternal and status patient discharged to home to follow-up as scheduled. See problem list details for additional plan information. Charges/Coding Procedures Urinary/Genital 52xxx-59xxx: 70061-31 non-stress test Interp 01/25/25 1213 Date Jena Campos MD Cosigner Signature (if applicable): Date __ CC: Dr. Jena Campos MD; No Primary Care Physician Signed Normal [facility] Laboratory - Chemistry and C hemistry - challengeOrdered By: Dahlia Spring on 01-21-2025 Glucose Ql (U) Negative [facility] Laboratory - UrinalysisOrder ed By: Dahlia Spring on 01-21-2025 Protein Ql (U) Negative [facility] OB Limited (No Biometrics)on 01-21-2025 OB Limited (No Biometrics) [facility] Imaging Services [address] [place], [place] [address] OB Limited (No Biometrics) MR#: [id number] Acct: [id number] Name: KATELYN ANTOINE Rep #: [id number] : 1995 F 29 From: Tc Rowland MD PCP: Care Physician,No Primary Status: DEP CLI Study: OB Limited (No Biometrics) Date of Exam: 01/21 Exam# [id number] Ordering Dr: Jena Campos PROCEDURE: OB LIMITED (NO BIOMETRICS) 01/21/2025 REASON FOR EXAM: NO BIOMETRICS DB ONLY TECHNIQUE: OB LIMITED (NO BIOMETRICS) COMPARISON: 01/02/2025. FINDINGS Single live intrauterine . Cephalic presentation. heart rate of 141 beats per minute. Amniotic fluid index of 6.3 cm. Placenta grade 1. Right lateral and posteriorly located placenta. No evidence of previa. US/OB Limited (No Biometrics) IMPRESSION: DB of 6.3 cm. Reading Location: [place] [address] CC: Dr. Jena Campos MD; No Primary Care Physician Business Operations Coordinator: Signed Normal [facility] Shop Teacher Office Visit Reporton 01-21-2025 Shop Teacher Office Visit Report [facility]'s [address], [address] [place] [id number] OFFICE VISIT Date of Service: 01/21/25 MR#: [id number] Acct: [id number] Name: KATELYN ANTOINE Rep #: [id number] : 1995 Provider: ZEFERINO Avina ams Age/Sex: 29/F Location: [facility] [place] Status: Signed Intake Vital Signs 12/17/24 09:11 01/12/25 09:09 01/21/25 09:50 01/21/25 09:57 Height 5 ft 7 in 5 ft 7 in 5 ft 7 in 5 ft 7 in Weight: 153 lb 6 oz BMI 24.0 BP 111/75 Intake Visit Reasons: 37 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: No Is patient in pain?: No Allergies No Known Allergies Allergy (Verified 01/21/25 09:50) Medications ???Medication ???Instructions ???Recorded ???Confirmed ???Type acetaminophen 500 mg tablet 1,000 mg (2 x 500 mg) PO Q6H PRN 0 08/14/21 01/21/25 Rx PRN Pain 1-10 Or Fever #0 tabs magnesium 200 mg tablet 330 mg PO QDAY 06/27/24 01/21/25 H istory vitamins no.163-iron tab PO DAILY 06/27/24 01/21/25 His tory bis-gly 20 mg-folate no.10 1 mg tablet (PNV Tabs 20-1) pyridoxine (vitamin B6) 100 mg 100 mg PO QDAY 06/27/24 01/21/25 H istory tablet ondansetron 4 mg disintegrating 4 mg PO Q6H PRN nausea and 07/07/ 4 01/21/25 Rx tablet vomiting #90 tabs iron supplement PO 12/31/24 01/21/25 History Last Menstrual Period: 05/05/24 Do you think of yourself as: straight/heterosexu al Current gender identity: female : No PFSH PFSH Medical History Seasonal allergies care following vaginal delivery 40 weeks gestation of Anemia IBS (irritable bowel syndrome) Anxiety Social History adopted: No household members: spouse and children number of children: 1 current occupational status: unemployed current occupation: [employer] pets and animals: Yes pets and animals: dog(s) history of recent travel: Yes ([place]) out of state: Yes out of country: No sexually active: Yes do you think of yourself as: straight/heterosexu al current gender identity: female Smoking Status: Former smoker how long ago did patient quit smokin years alcohol intake: current alcohol intake frequency: holidays/special occasions only details: Not while substance use type: does not use well-balanced diet: daily or most days caffeine: Yes Type: coffee Number of servings: 1 eating out: 1-3 times/week during the past year weight has: remained stable what type of physical activity do you participate in: none conrad/hinduism: Adventism seatbelt use: sometimes do you feel safe at home: Yes additional social history: - [place]- 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 Date Name GA/Weeks Outcome Route Bth Weight Gen Labor Lgth Anesthesia Del Locatn Provider FOB 08/12/21 Mei 40 live - full term 6#12oz Female 12hr epidural [facility] Delivery Date: 08/12/21 Last Updated by: Fide Landis no complications HPI 37 wk ob Details: KATELYN ANTOINE is a 29 year old who presents for routine OB visit. OB Visit EMIR Calculator Estimated Delivery Date Method Current WG Current Estimate 02/09/25 Ultrasound #1 37w 2d Other Estimates 02/09/25 LMP (Certain) 37w 2d Expected Delivery Route/Plan Labor Preferences- CB/BF classes: [] labor support person: [] labor intervention preferences: [] pain management options preferred: [] cut cord/dad catch: [] : [] PP control planned: [] discussed possible routes of delivery and associated risks: [] special requests: [] Specific Issue/Plans Covid status: [] Flu vaccine: [] Tdap vaccine: [] Rhogam: [] LARC form signed: [] Problem list reviewed and updated with the most current plan of care details and appropriate orders placed. Relevant counseling for the gestational age provided. Continue routine care and follow up unless otherwise noted in visit notes/problem list details Initial Weight: 117 lb Date -???-???-???-???-?? ?-???-???-???-???-? ??-???-???- EGA Weight BP Urine Prot -???-???-???-???-?? ?-???-???-???-???-? ??-???-???- Glucose FHR FuHt Pres Dilation -???-???-???-???-?? ?-???-???-???-???-? ??-???-???- Effaced St Visit Note 07/07/24 -???-???-???-???-?? ?-???-???-???-???-? ??-???-???- 9w 0d 117 lb (+0 oz) 131/81 -???-???-???-???-?? ?-???-???-???-???-? ??-???-???- 175 -???-???-???-???-?? ?-???-???-???-???-? ??-???-???- KW- CRL cons with dates. declines NIPT. would like Sd elvira appts. 08/12/24 -???-? (more content not included)... Normal [facility] Rule out Beta Strep (Grp. B) on 01-19-2025 JANE Group B Beta Streptococcus is not isolated. Normal [facility] Comment on above: Performed By: #### M 100.9123 #### [facility] Laboratory [address] [place], [address] Laboratory - Chemistry and C hemistry - challengeOrdered By: Patito Vo on 01-12-2025 Glucose Ql (U) Negative [facility] Laboratory - UrinalysisOrder ed By: Patito Vo on 01-12-2025 Protein Ql (U) Negative [facility] Shop Teacher Office Visit Reporton 01-12-2025 Shop Teacher Office Visit Report [facility]'s [address], [address] [place] [address] OFFICE VISIT Date of Service: 01/12/25 MR#: [id number] Acct: [id number] Name: KATELYN ANTOINE Rep #: [id number] : 1995 Provider: Dr. Patito Schuler DO Age/Sex: 29/F Location: [facility] [place] Status: Signed Intake Vital Signs 07/07/24 08:59 12/31/24 10:29 01/12/25 09:08 01/12/25 09:09 Height 5 ft 7 in 5 ft 7 in 5 ft 7 in 5 ft 7 in Weight: 152 lb 6 oz BMI 23.8 BP 113/80 Intake Visit Reasons: 36 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: No Is patient in pain?: No Allergies No Known Allergies Allergy (Verified 01/12/25 09:07) Medications ???Medication ???Instructions ???Recorded ???Confirmed ???Type acetaminophen 500 mg tablet 1,000 mg (2 x 500 mg) PO Q6H PRN 0 08/14/21 01/12/25 Rx PRN Pain 1-10 Or Fever #0 tabs magnesium 200 mg tablet 330 mg PO QDAY 06/27/24 01/12/25 H istory vitamins no.163-iron tab PO DAILY 06/27/24 01/12/25 His tory bis-gly 20 mg-folate no.10 1 mg tablet (PNV Tabs 20-1) pyridoxine (vitamin B6) 100 mg 100 mg PO QDAY 06/27/24 01/12/25 H istory tablet ondansetron 4 mg disintegrating 4 mg PO Q6H PRN nausea and 4 01/12/25 Rx tablet vomiting #90 tabs iron supplement PO 12/31/24 01/12/25 History Last Menstrual Period: 05/05/24 Zika: Zika virus screening: Negative : No PFSH PFSH Medical History Seasonal allergies care following vaginal delivery 40 weeks gestation of Anemia IBS (irritable bowel syndrome) Anxiety Social History adopted: No household members: spouse and children number of children: 1 current occupational status: unemployed current occupation: [employer] pets and animals: Yes pets and animals: dog(s) history of recent travel: Yes ([place]) out of state: Yes out of country: No sexually active: Yes Smoking Status: Former smoker how long ago did patient quit smokin years alcohol intake: current alcohol intake frequency: holidays/special occasions only details: Not while substance use type: does not use well-balanced diet: daily or most days caffeine: Yes Type: coffee Number of servings: 1 eating out: 1-3 times/week during the past year weight has: remained stable what type of physical activity do you participate in: none conrad/hinduism: Adventism seatbelt use: sometimes do you feel safe at home: Yes additional social history: - [place]- 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 Date Name GA/Weeks Outcome Route Bth Weight Infant Gen Labor Lgth Anesthesia Del Locatn Provider FOB 08/12/21 Mei 40 live - full term 6#12oz Female 12hr epidural [facility] Delivery Date: 08/12/21 Last Updated by: Fide Landis no complications HPI 36 wk ob Details: KATELYN ANTOINE is a 29 year old who presents for routine OB visit. OB Visit EMIR Calculator Estimated Delivery Date Method Current WG Current Estimate 02/09/25 Ultrasound #1 36w 0d Other Estimates 02/09/25 LMP (Certain) 36w 0d Expected Delivery Route/Plan Labor Preferences- CB/BF classes: [] labor support person: [] labor intervention preferences: [] pain management options preferred: [] cut cord/dad catch: [] : [] PP control planned: [] discussed possible routes of delivery and associated risks: [] special requests: [] Specific Issue/Plans Covid status: [] Flu vaccine: [] Tdap vaccine: [] Rhogam: [] LARC form signed: [] Problem list reviewed and updated with the most current plan of care details and appropriate orders placed. Relevant counseling for the gestational age provided. Continue routine care and follow up unless otherwise noted in visit notes/problem list details Initial Weight: 117 lb Date -???-???-???-???-?? ?-???-???-???-???-? ??-???-???- EGA Weight BP Urine Prot -???-???-???-???-?? ?-???-???-???-???-? ??-???-???- Glucose FHR FuHt Pres Dilation -???-???-???-???-?? ?-???-???-???-???-? ??-???-???- Effaced St Visit Note 07/07/24 -???-???-???-???-?? ?-???-???-???-???-? ??-???-???- 9w 0d 117 lb (+0 oz) 131/81 -???-???-???-???-?? ?-???-???-???-???-? ??-???-???- 175 -???-???-???-???-?? ?-???-???-???-???-? ??-???-???- KW- CRL cons with dates. declines NIPT. would like [facility] appts. 08/12/24 -???-???-???-???-?? ?-???-???-???-???-? ??-???-???- 14w 1d 116 lb 8 oz (-8 oz) 108/72 Negative -???-???-???-???-?? ?-? (more content not included)... Normal [facility] Screening beta-hemolytic Str eptococcus cultureOrdered By: Patito Vo on 01-12-2025 Beta-hemolytic Streptococcus culture Group B Beta Streptococcus is not isolated. [facility] OB Limited With Biometricson 01-02-2025 OB Limited With Biometrics [facility] Imaging Services [address] [place] [id number] OB Limited With Biometrics MR#: [id number] Acct: [id number] Name: KATELYN ANTOINE Rep #: [id number] : 1995 F 29 From: Lamin kelley MD PCP: Care Physician,No Primary Status: REG CLI Study: OB Limited With Biometrics Date of Exam: 01/02 Exam# [id number] Ordering Dr: Dahlia Spring CNM PROCEDURE: OB LIMITED WITH BIOMETRICS 01/02/2025 REASON FOR EXAM: UTERINE SIZE LESS THAN DATES TECHNIQUE: High resolution obstetric ultrasound performed using a 2D transducer. Standard views obtained, including biometry, anatomy survey, and Doppler studies. COMPARISON: September 24, 2024. FINDINGS Number: 1 Position: Vertex Placental Position: Posterior and not low-lying. Placental Abnormalities: None DIMENSIONS: Biparietal Diameter: 8.42 cm: 33 weeks and 6 days: 31%/ Head Circumference: 30.8 cm: 34 weeks and 2 days: 13 percentile/ Abdominal Circumference: 29.38 cm: 33 weeks and 3 days: 22nd percentile/ Femur Length: 6.77 cm: 34 weeks and 6 days: 48 percentile/ ESTIMATED WEIGHT: 2325 g plus/-349 g ESTIMATED WEIGHT PERCENTILE (24+ weeks): 30 ESTIMATED GESTATIONAL AGE: Baseline: 34 weeks and 4 days By Ultrasound: 33 weeks and 6 days ESTIMATED DATE OF DELIVERY: Baseline: February 09, 2025 By Ultrasound: February 14, 2025 BIOPHYSICAL ASSESSMENT: Amniotic Fluid Volume: 3.6 cm x 3 cm Amniotic Fluid Index: 9.7 (8-24 cm normal range) Cardiac Motion: 156 beats per minute (average) Trunk and Limb Motion: Present. MATERNAL ANATOMY: Adnexa: 3.1 cm Cervical Length (if measured): US/OB Limited With Biometrics IMPRESSION: Single live intrauterine gestation with a mean gestational age of 33 weeks and 6 days. Reading Location: [place] [address] CC: ZEFERINO Spring; No Primary Care Physician Business Operations Coordinator: Signed Normal [facility] Laboratory - Chemistry and C hemistry - challengeOrdered By: Dahlia Spring on 12-31-2024 Glucose Ql (U) Negative [facility] Laboratory - UrinalysisOrder ed By: Dahlia Spring on 12-31-2024 Protein Ql (U) Negative [facility] Shop Teacher Office Visit Reporton 12-31-2024 Shop Teacher Office Visit Report [facility]'s [address], [facility] [address] [place] [address] OFFICE VISIT Date of Service: 12/31/24 MR#: [id number] Acct: [id number] Name: KATELYN ANTOINE Rep #: [id number] : 1995 Provider: ZEFERINO Avina ams Age/Sex: 29/F Location[place] [facility] [place] Status: Signed Intake Vital Signs 12/17/24 09:11 12/31/24 10:23 12/31/24 10:29 Height 5 ft 7 in 5 ft 7 in 5 ft 7 in Weight: 149 lb 2 oz BMI 23.3 BP 114/76 Intake Visit Reasons: 34 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: No Is patient in pain?: No Allergies No Known Allergies Allergy (Verified 12/31/24 10:22) Medications ???Medication ???Instructions ???Recorded ???Confirmed ???Type acetaminophen 500 mg tablet 1,000 mg (2 x 500 mg) PO Q6H PRN 0 08/14/21 12/31/24 Rx PRN Pain 1-10 Or Fever #0 tabs magnesium 200 mg tablet 330 mg PO QDAY 06/27/24 12/31/24 H istory vitamins no.163-iron tab PO DAILY 06/27/24 12/31/24 His tory bis-gly 20 mg-folate no.10 1 mg tablet (PNV Tabs 20-1) pyridoxine (vitamin B6) 100 mg 100 mg PO QDAY 06/27/24 12/31/24 H istory tablet ondansetron 4 mg disintegrating 4 mg PO Q6H PRN nausea and 4 12/31/24 Rx tablet vomiting #90 tabs iron supplement PO 12/31/24 History Last Menstrual Period: 05/05/24 Do you think of yourself as: straight/heterosexu al Current gender identity: female Zika: Zika virus screening: Negative : No PFSH PFSH Medical History Seasonal allergies care following vaginal delivery 40 weeks gestation of Anemia IBS (irritable bowel syndrome) Anxiety Social History adopted: No household members: spouse and children number of children: 1 current occupational status: unemployed current occupation: [employer] pets and animals: Yes pets and animals: dog(s) history of recent travel: Yes ([place]) out of state: Yes out of country: No sexually active: Yes Smoking Status: Former smoker how long ago did patient quit smokin years alcohol intake: current alcohol intake frequency: holidays/special occasions only details: Not while substance use type: does not use well-balanced diet: daily or most days caffeine: Yes Type: coffee Number of servings: 1 eating out: 1-3 times/week during the past year weight has: remained stable what type of physical activity do you participate in: none conrad/hinduism: Adventism seatbelt use: sometimes do you feel safe at home: Yes additional social history: - [place]- 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 Date Name GA/Weeks Outcome Route Bth Weight Gen Labor Lgth Anesthesia Del Locatn Provider FOB 08/12/21 Mei 40 live - full term 6#12oz Female 12hr epidural [facility] Delivery Date: 08/12/21 Last Updated by: Fide Landis no complications HPI 34 wk ob Details: KATELYN ANTOINE is a 29 year old who presents for routine OB visit. OB Visit EMIR Calculator Estimated Delivery Date Method Current WG Current Estimate 02/09/25 Ultrasound #1 34w 2d Other Estimates 02/09/25 LMP (Certain) 34w 2d Expected Delivery Route/Plan Labor Preferences- CB/BF classes: [] labor support person: [] labor intervention preferences: [] pain management options preferred: [] cut cord/dad catch: [] : [] PP control planned: [] discussed possible routes of delivery and associated risks: [] special requests: [] Specific Issue/Plans Covid status: [] Flu vaccine: [] Tdap vaccine: [] Rhogam: [] LARC form signed: [] Problem list reviewed and updated with the most current plan of care details and appropriate orders placed. Relevant counseling for the gestational age provided. Continue routine care and follow up unless otherwise noted in visit notes/problem list details Initial Weight: 117 lb Date -???-???-???-???-?? ?-???-???-???-???-? ??-???-???- EGA Weight BP Urine Prot -???-???-???-???-?? ?-???-???-???-???-? ??-???-???- Glucose FHR FuHt Pres Dilation -???-???-???-???-?? ?-???-???-???-???-? ??-???-???- Effaced St Visit Note 07/07/24 -???-???-???-???-?? ?-???-???-???-???-? ??-???-???- 9w 0d 117 lb (+0 oz) 131/81 -???-???-???-???-?? ?-???-???-???-???-? ??-???-???- 175 -???-???-???-???-?? ?-???-???-???-???-? ??-???-???- KW- CRL cons with dates. declines NIPT. would like [facility] appts. 08/12/24 -???-???-???-???-?? ?-???-???-???-???-? ??-???-???- 14w 1d 116 lb 8 oz (-8 oz) 108/72 Ne (more content not included)... Normal [facility] Absolute lymphocyte countOrd ered By: Patito Vo on 12-26-2024 Lymphocytes Auto (Unsp spec) [#/Vol] 1.47 10*3/uL 0.83-4.51 [facility] Absolute neutrophil countOrd ered By: Patito Vo on 12-26-2024 Neutrophils (Bld) [#/Vol] 7.0 10*3/uL 2.0-7.7 [facility] Automated lymphocyte count a s percentage of total leukocytesOrdered By: Patito Vo on 12-26-2024 Lymphocytes/100 WBC Auto (Unsp spec) 15.6 % Low 19-41 [facility] Basophil percentageOrdered B y: Patito Vo on 12-26-2024 Basophils/100 WBC (Bld) 0.2 % 0-1 [facility] CBC W/Diff, Automatedon 12-05 Absolute Lymph 1.47 X10 3/uL Normal 0.83-4.51 [facility] Comment on above: Performed By: #### L 100.0100 #### [facility] [place], [address] Absolute Neut 7.0 X10 3/uL Normal 2.0-7.7 [facility] Comment on above: Performed By: #### L 100.0100 #### [facility] [address] [place], [address] Basophils/100 WBC (Bld) 0.2 % Normal 0-1 [facility] Comment on above: Performed By: #### L 100.0100 #### [facility] [address] [place], [address] Eosinophils/100 WBC (Bld) 1.0 % Normal 0-5 [facility] Comment on above: Performed By: #### L 100.0100 #### [facility] [address] [place], [address] Erythrocyte distribution width (RBC) [Ratio] 13.0 % Normal 11.6-14.6 [facility] Comment on above: Performed By: #### L 100.0100 #### [facility] [address] [place], [address] Hematocrit (Bld) [Volume fraction] 33.4 % Low 37-47 [facility] Comment on above: Performed By: #### L 100.0100 #### [facility] [address] [place], [address] Hemoglobin (Bld) [Mass/Vol] 11.2 g/dL Low 12.0-15.0 [facility] Comment on above: Performed By: #### L 100.0100 #### [facility] [address] [place], [address] IG% 1.400 High 0.0-0.9 [facility] Comment on above: Result Comment: IG% - Immature Granulocytes (promyelocytes, myelocytes and metamyelocytes) > 1% indicates that a LEFT SHIFT is Present. Performed By: #### L 100.0100 #### [facility] [address] [place], [address] Lymphocytes/100 WBC (Bld) 15.6 % Low 19-41 [facility] Comment on above: Performed By: #### L 100.0100 #### [facility] [address] [place], [address] MCH (RBC) [Entitic mass] 31.4 pg Normal 27.0-32.0 [facility] Comment on above: Performed By: #### L 100.0100 #### [facility] [address] [place], [address] MCHC (RBC) [Mass/Vol] 33.5 g/dL Normal 32-36 [facility] Comment on above: Performed By: #### L 100.0100 #### [facility] [address] [place], [address] MCV (RBC) [Entitic vol] 93.6 fL Normal 81-99 [facility] Comment on above: Performed By: #### L 100.0100 #### [facility] [address] [place], [address] Monocytes/100 WBC (Bld) 8.4 % Normal 0-10 [facility] Comment on above: Performed By: #### L 100.0100 #### [facility] [address] [place], [address] Neutrophils/100 WBC (Bld) 73.4 % High 47-70 [facility] Comment on above: Performed By: #### L 100.0100 #### [facility] [address] [place], [address] Nucleated RBC (Bld) [#/Vol] 0 10*3/uL Normal 0-5 [facility] Comment on above: Performed By: #### L 100.0100 #### [facility] [address] [place], [address] Platelet mean volume (Bld) [Entitic vol] 12.9 fL High 6.2-12.0 [facility] Comment on above: Performed By: #### L 100.0100 #### [facility] [address] [place], [address] Platelets (Bld) [#/Vol] 144 10*3/uL Low 150-450 [facility] Comment on above: Performed By: #### L 100.0100 #### [facility] [address] [place], [address] RBC (Bld) [#/Vol] 3.57 10*6/uL Low 4.2-5.4 [facility] Comment on above: Performed By: #### L 100.0100 #### [facility] [address] [place], [address] RDW SD 44.1 fl High 35.1-43.9 [facility] Comment on above: Performed By: #### L 100.0100 #### [facility] [address] [place], [address] WBC (Bld) [#/Vol] 9.5 10*3/uL Normal 4.4-11.0 [facility] Comment on above: Performed By: #### L 100.0100 #### [facility] [address] [place], [address] Eosinophil percentageOrdered By: Patito Vo on 12-26-2024 Eosinophils/100 WBC (Bld) 1.0 % 0-5 [facility] Erythrocyte distribution wid th ratioOrdered By: Patito Vo on 12-26-2024 Erythrocyte distribution width (RBC) [Ratio] 13.0 % 11.6-14.6 [facility] Erythrocyte distribution wid th standard deviationOrdered By: Patito Vo on 12-26-2024 Erythrocyte distribution width (RBC) [Ratio] 44.1 fl High 35.1-43.9 [facility] Hematocrit Auto (Bld) [Volum e fraction]Ordered By: Patito Vo on 12-26-2024 Hematocrit (Bld) [Volume fraction] 33.4 % Low 37-47 [facility] Hemoglobin measurementOrdere d By: Patito Vo on 12-26-2024 Hemoglobin (Bld) [Mass/Vol] 11.2 g/dL Low 12.0-15.0 [facility] Immature granulocytes/100 WB C Auto (Bld)Ordered By: Patito Vo on 12-26-2024 Immature granulocytes/100 WBC (Bld) 1.400 % High 0.0-0.9 [facility] Comment on above: IG% - Immature Granu locytes (promyelocytes, myelocytes and metamyelocytes) > 1% indicates that a LEFT SHIFT is Present. MCV (mean corpuscular volume ) determinationOrdered By: Patito Vo on 12-26-2024 MCV (RBC) [Entitic vol] 93.6 fL 81-99 [facility] Mean corpuscular hemoglobin (MCH) determinationOrdered By: Patito Vo on 12-26-2024 MCH (RBC) [Entitic mass] 31.4 pg 27.0-32.0 [facility] Mean corpuscular hemoglobin concentration (MCHC) determinationOrdered By: Patito Vo on 12-26-2024 MCHC (RBC) [Mass/Vol] 33.5 g/dL 32-36 [facility] Mean platelet volume determi nationOrdered By: Patito Vo on 12-26-2024 Platelet mean volume (Bld) [Entitic vol] 12.9 fL High 6.2-12.0 [facility] Monocyte percentageOrdered B y: Patito Vo on 12-26-2024 Monocytes/100 WBC (Bld) 8.4 % 0-10 [facility] Neutrophil percentageOrdered By: Patito Vo on 12-26-2024 Neutrophils/100 WBC (Bld) 73.4 % High 47-70 [facility] Nucleated red blood cell per centageOrdered By: Patito Vo on 12-26-2024 Nucleated RBC/100 WBC (Bld) [Ratio] 0 % 0-5 [facility] Platelet countOrdered By: Kwame Vo on 12-26-2024 Platelets (Bld) [#/Vol] 144 10*3/uL Low 150-450 [facility] RBC Auto (Bld) [#/Vol]Ordere d By: Patito Gilda on 12-26-2024 RBC (Bld) [#/Vol] 3.57 10*6/uL Low 4.2-5.4 [facility] White blood cell (WBC) count Ordered By: Patito Vo on 12-26-2024 WBC (Bld) [#/Vol] 9.5 10*3/uL 4.4-11.0 [facility] - Chemistry and C hemistry - challengeOrdered By: Dahlia Spring on 12-17-2024 Glucose Ql (U) Negative [facility] - UrinalysisOrder ed By: Dahlia Spring on 12-17-2024 Protein Ql (U) Negative [facility] Shop Teacher Office Visit Reporton 12-17-2024 Shop Teacher Office Visit Report [facility]'s [address], [address] [place] [address] OFFICE VISIT Date of Service: 12/17/24 MR#: [id number] Acct: [id number] Name: KATELYN ANTOINE Rep #: [id number] : 1995 Provider: ZEFERINO Avina ams Age/Sex: 29/F Location: [facility] [place] Status: Signed Intake Vital Signs 07/07/24 08:59 12/01/24 09:00 12/17/24 09:09 12/17/24 09:11 Height 5 ft 7 in 5 ft 7 in 5 ft 7 in 5 ft 7 in Weight: 145 lb 2 oz BMI 22.7 BP 116/75 Intake Visit 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 Is patient in pain?: No Allergies No Known Allergies Allergy (Verified 12/17/24 09:10) Medications ???Medication ???Instructions ???Recorded ???Confirmed ???Type acetaminophen 500 mg tablet 1,000 mg (2 x 500 mg) PO Q6H PRN 0 08/14/21 12/17/24 Rx PRN Pain 1-10 Or Fever #0 tabs magnesium 200 mg tablet 330 mg PO QDAY 06/27/24 12/17/24 H istory vitamins no.163-iron tab PO DAILY 06/27/24 12/17/24 His tory bis-gly 20 mg-folate no.10 1 mg tablet (PNV Tabs 20-1) pyridoxine (vitamin B6) 100 mg 100 mg PO QDAY 06/27/24 12/17/24 H istory tablet ondansetron 4 mg disintegrating 4 mg PO Q6H PRN nausea and 4 12/17/24 Rx tablet vomiting #90 tabs Last Menstrual Period: 05/05/24 Do you think of yourself as: straight/heterosexu al Current gender identity: female Zika: Zika virus screening: Negative : No PFSH PFSH Medical History Seasonal allergies care following vaginal delivery 40 weeks gestation of Anemia IBS (irritable bowel syndrome) Anxiety Social History adopted: No household members: spouse and children number of children: 1 current occupational status: unemployed current occupation: [employer] pets and animals: Yes pets and animals: dog(s) history of recent travel: Yes ([place]) out of state: Yes out of country: No sexually active: Yes Smoking Status: Former smoker how long ago did patient quit smokin years alcohol intake: current alcohol intake frequency: holidays/special occasions only details: Not while substance use type: does not use well-balanced diet: daily or most days caffeine: Yes Type: coffee Number of servings: 1 eating out: 1-3 times/week during the past year weight has: remained stable what type of physical activity do you participate in: none conrad/hinduism: Adventism seatbelt use: sometimes do you feel safe at home: Yes additional social history: - [place]- 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 Date Name GA/Weeks Outcome Route Bth Weight Infant Gen Labor Lgth Anesthesia Del Locatn Provider FOB 08/12/21 Mei 40 live - full term 6#12oz Female 12hr epidural [facility] Ca gabi C[facility] Delivery Date: 08/12/21 Last Updated by: Fide Landis no complications HPI 32 wk ob Details: KATELYN ANTOINE is a 29 year old who presents for routine OB visit. OB Visit EMIR Calculator Estimated Delivery Date Method Current WG Current Estimate 02/09/25 Ultrasound #1 32w 2d Other Estimates 02/09/25 LMP (Certain) 32w 2d Expected Delivery Route/Plan Labor Preferences- CB/BF classes: [] labor support person: [] labor intervention preferences: [] pain management options preferred: [] cut cord/dad catch: [] : [] PP control planned: [] discussed possible routes of delivery and associated risks: [] special requests: [] Specific Issue/Plans Covid status: [] Flu vaccine: [] Tdap vaccine: [] Rhogam: [] LARC form signed: [] Problem list reviewed and updated with the most current plan of care details and appropriate orders placed. Relevant counseling for the gestational age provided. Continue routine care and follow up unless otherwise noted in visit notes/problem list details Initial Weight: 117 lb Date -???-???-???-???-?? ?-???-???-???-???-? ??-???-???- EGA Weight BP Urine Prot -???-???-???-???-?? ?-???-???-???-???-? ??-???-???- Glucose FHR FuHt Pres Dilation -???-???-???-???-?? ?-???-???-???-???-? ??-???-???- Effaced St Visit Note 07/07/24 -???-???-???-???-?? ?-???-???-???-???-? ??-???-???- 9w 0d 117 lb (+0 oz) 131/81 -???-???-???-???-?? ?-???-???-???-???-? ??-???-???- 175 -???-???-???-???-?? ?-???-???-???-???-? ??-???-???- KW- CRL cons with dates. declines NIPT. would like [facility] appts. 08/12/24 -???-???-???-???-?? ?-???-???-???-???-? ??-???-???- 14w 1d 116 lb 8 oz (-8 oz) 108/72 Negative -??? (more content not included)... Normal [facility] - Chemistry and C hemistry - challengeOrdered By: Patito Vo on 12-01-2024 Glucose Ql (U) Negative [facility] - UrinalysisOrder ed By: Patito Vo on 12-01-2024 Protein Ql (U) Negative [facility] Shop Teacher Office Visit Reporton 12-01-2024 Shop Teacher Office Visit Report [facility]'s [address], [address] [place] [address] OFFICE VISIT Date of Service: 12/01/24 MR#: [id number] Acct: [id number] Name: KATELYN ANTOINE Rep #: [id number] : 1995 Provider: Dr. Patito Schuler DO Age/Sex: 29/F Location: [facility] [place] Status: Signed Intake Vital Signs 07/07/24 08:59 11/19/24 08:49 12/01/24 08:58 12/01/24 09:00 Height 5 ft 7 in 5 ft 7 in 5 ft 7 in 5 ft 7 in Weight: 142 lb 6 oz BMI 22.3 BP 103/71 Intake Visit Reasons: 30 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: No Is patient in pain?: No Allergies No Known Allergies Allergy (Verified 12/01/24 08:58) Medications ???Medication ???Instructions ???Recorded ???Confirmed ???Type acetaminophen 500 mg tablet 1,000 mg (2 x 500 mg) PO Q6H PRN 0 08/14/21 12/01/24 Rx PRN Pain 1-10 Or Fever #0 tabs magnesium 200 mg tablet 330 mg PO QDAY 06/27/24 12/01/24 H istory vitamins no.163-iron tab PO DAILY 06/27/24 12/01/24 His tory bis-gly 20 mg-folate no.10 1 mg tablet (PNV Tabs 20-1) pyridoxine (vitamin B6) 100 mg 100 mg PO QDAY 06/27/24 12/01/24 H istory tablet ondansetron 4 mg disintegrating 4 mg PO Q6H PRN nausea and 4 12/01/24 Rx tablet vomiting #90 tabs Last Menstrual Period: 05/05/24 Zika: Zika virus screening: Negative : No [facility] PFSH Medical History Seasonal allergies care following vaginal delivery 40 weeks gestation of Anemia IBS (irritable bowel syndrome) Anxiety Social History adopted: No household members: spouse and children number of children: 1 current occupational status: unemployed current occupation: [employer] pets and animals: Yes pets and animals: dog(s) history of recent travel: Yes ([place]) out of state: Yes out of country: No sexually active: Yes Smoking Status: Former smoker how long ago did patient quit smokin years alcohol intake: current alcohol intake frequency: holidays/special occasions only details: Not while substance use type: does not use well-balanced diet: daily or most days caffeine: Yes Type: coffee Number of servings: 1 eating out: 1-3 times/week during the past year weight has: remained stable what type of physical activity do you participate in: none conrad/hinduism: Adventism seatbelt use: sometimes do you feel safe at home: Yes additional social history: - [place]- 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 Date Name GA/Weeks Outcome Route Bth Weight Infant Gen Labor Lgth Anesthesia Del Locatn Provider FOB 08/12/21 Mei 40 live - full term 6#12oz Female 12hr epidural [facility] Serina [facility]ulp [facility] Delivery Date: 08/12/21 Last Updated by: Fide Landis no complications HPI 30 wk ob Details: KATELYN ANTOINE is a 29 year old who presents for routine OB visit. OB Visit EMIR Calculator Estimated Delivery Date Method Current WG Current Estimate 02/09/25 Ultrasound #1 30w 0d Other Estimates 02/09/25 LMP (Certain) 30w 0d Expected Delivery Route/Plan Labor Preferences- CB/BF classes: [] labor support person: [] labor intervention preferences: [] pain management options preferred: [] cut cord/dad catch: [] : [] PP control planned: [] discussed possible routes of delivery and associated risks: [] special requests: [] Specific Issue/Plans Covid status: [] Flu vaccine: [] Tdap vaccine: [] Rhogam: [] LARC form signed: [] Problem list reviewed and updated with the most current plan of care details and appropriate orders placed. Relevant counseling for the gestational age provided. Continue routine care and follow up unless otherwise noted in visit notes/problem list details Initial Weight: 117 lb Date -???-???-???-???-?? ?-???-???-???-???-? ??-???-???- EGA Weight BP Urine Prot -???-???-???-???-?? ?-???-???-???-???-? ??-???-???- Glucose FHR FuHt Pres Dilation -???-???-???-???-?? ?-???-???-???-???-? ??-???-???- Effaced St Visit Note 07/07/24 -???-???-???-???-?? ?-???-???-???-???-? ??-???-???- 9w 0d 117 lb (+0 oz) 131/81 -???-???-???-???-?? ?-???-???-???-???-? ??-???-???- 175 -???-???-???-???-?? ?-???-???-???-???-? ??-???-???- KW- CRL cons with dates. declines NIPT. would like [facility] appts. 08/12/24 -???-???-???-???-?? ?-???-???-???-???-? ??-???-???- 14w 1d 116 lb 8 oz (-8 oz) 108/72 Negative -???-???-???-???-?? ?-???-???-???-???-? ??-???-???- Negative 170 -??? (more content not included)... Normal [facility] Gestational GTT 3HR 100gon 0 11-25-2024 3HR GTT- GEST. Normal [facility] Comment on above: Order Comment: Y Result Comment: FAST ING 87 Col: 11/25/24 0713 GLUCOSE TOLERANCE TEST FOR Reference Interval GESTATIONAL DIABETES Fasting <105 mg/dL 1 hour <190 mg/dl 2 hour <165 mg/dl 3 hour <145 mg/dl 1 HR GLU 116 Col: 11/25/24 0849 2 HR GLU 113 Col: 11/25/24 0949 3 HR GLU 95 Col: 11/25/24 1114 Performed By: #### L 500.4710 #### [facility] [place], [address] Quantitative serum or plasma 3 hour gestational glucose tolerance panelOrdered By: Dahlia Spring on 11-25-2024 Glucose tolerance 3 hours gestational panel See comment [facility] Comment on above: FASTING 87 Col: 11/05 09/30 0713GLUCOSE TOLERANCE TEST FOR Reference Interval GESTATIONAL DIABETES Fasting <105 mg/dL 1 hour <190 mg/dl 2 hour <165 mg/dl 3 hour <145 mg/dl 1 HR GLU 116 Col: 11/25/24 0849 2 HR GLU 113 Col: 11/25/24 0949 3 HR GLU 95 Col: 11/25/24 1114 Absolute lymphocyte countOrd ered By: Dahlia Spring on 11-19-2024 Lymphocytes Auto (Unsp spec) [#/Vol] 1.19 10*3/uL 0.83-4.51 [facility] Absolute neutrophil countOrd ered By: Dahlia Spring on 11-19-2024 Neutrophils (Bld) [#/Vol] 5.9 10*3/uL 2.0-7.7 [facility] Automated lymphocyte count a s percentage of total leukocytesOrdered By: Dahlia Spring on 11-19-2024 Lymphocytes/100 WBC Auto (Unsp spec) 15.5 % Low 19-41 [facility] Basophil percentageOrdered B y: Dahlia Spring on 11-19-2024 Basophils/100 WBC (Bld) 0.4 % 0-1 [facility] CBC W/Diff, Automatedon 11-04 Absolute Lymph 1.19 X10 3/uL Normal 0.83-4.51 [facility] Comment on above: Performed By: #### L 501.0250, BTS, L100.0100 #### [facility] [address] [place], [address] Absolute Neut 5.9 X10 3/uL Normal 2.0-7.7 [facility] Comment on above: Performed By: #### L 501.0250, BTS, L100.0100 #### [facility] [address] [place], [address] Basophils/100 WBC (Bld) 0.4 % Normal 0-1 [facility] Comment on above: Performed By: #### L 501.0250, BTS, L100.0100 #### [facility] [address] [place], [address] Eosinophils/100 WBC (Bld) 1.0 % Normal 0-5 [facility] Comment on above: Performed By: #### L 501.0250, BTS, L100.0100 #### [facility] [address] [place], [address] Erythrocyte distribution width (RBC) [Ratio] 12.9 % Normal 11.6-14.6 [facility] Comment on above: Performed By: #### L 501.0250, BTS, L100.0100 #### [facility] [address] [place], [address] Hematocrit (Bld) [Volume fraction] 34.1 % Low 37-47 [facility] Comment on above: Performed By: #### L 501.0250, BTS, L100.0100 #### [facility] [address] [place], [address] Hemoglobin (Bld) [Mass/Vol] 11.6 g/dL Low 12.0-15.0 [facility] Comment on above: Performed By: #### L 501.0250, BTS, L100.0100 #### [facility] [address] [place], [address] IG% 0.600 Normal 0.0-0.9 [facility] Comment on above: Result Comment: IG% - Immature Granulocytes (promyelocytes, myelocytes and metamyelocytes) > 1% indicates that a LEFT SHIFT is Present. Performed By: #### L 501.0250, BTS, L100.0100 #### [facility] [address] [place], [address] Lymphocytes/100 WBC (Bld) 15.5 % Low 19-41 [facility] Comment on above: Performed By: #### L 501.0250, BTS, L100.0100 #### [facility] [address] [place], [address] MCH (RBC) [Entitic mass] 31.4 pg Normal 27.0-32.0 [facility] Comment on above: Performed By: #### L 501.0250, BTS, L100.0100 #### [facility] [address] [place], [address] MCHC (RBC) [Mass/Vol] 34.0 g/dL Normal 32-36 [facility] Comment on above: Performed By: #### L 501.0250, BTS, L100.0100 #### [facility] [address] [place], [address] MCV (RBC) [Entitic vol] 92.4 fL Normal 81-99 [facility] Comment on above: Performed By: #### L 501.0250, BTS, L100.0100 #### [facility] [address] [place], [address] Monocytes/100 WBC (Bld) 6.1 % Normal 0-10 [facility] Comment on above: Performed By: #### L 501.0250, BTS, L100.0100 #### [facility] [address] [place], [address] Neutrophils/100 WBC (Bld) 76.4 % High 47-70 [facility] Comment on above: Performed By: #### L 501.0250, BTS, L100.0100 #### [facility] [address] [place], [address] Nucleated RBC (Bld) [#/Vol] 0 10*3/uL Normal 0-5 [facility] Comment on above: Performed By: #### L 501.0250, BTS, L100.0100 #### [facility] [address] [place], [address] Platelet mean volume (Bld) [Entitic vol] 12.6 fL High 6.2-12.0 [facility] Comment on above: Performed By: #### L 501.0250, BTS, L100.0100 #### [facility] [address] [place], [address] Platelets (Bld) [#/Vol] 149 10*3/uL Low 150-450 [facility] Comment on above: Performed By: #### L 501.0250, BTS, L100.0100 #### [facility] [address] [place], [address] RBC (Bld) [#/Vol] 3.69 10*6/uL Low 4.2-5.4 [facility] Comment on above: Performed By: #### L 501.0250, BTS, L100.0100 #### [facility] [address] [place], [address] RDW SD 43.6 fl Normal 35.1-43.9 [facility] Comment on above: Performed By: #### L 501.0250, BTS, L100.0100 #### [facility] [address] [place], [address] WBC (Bld) [#/Vol] 7.7 10*3/uL Normal 4.4-11.0 [facility] Comment on above: Performed By: #### L 501.0250, BTS, L100.0100 #### [facility] [address] [place], [address] Eosinophil percentageOrdered By: Dahlia Spring on 11-19-2024 Eosinophils/100 WBC (Bld) 1.0 % 0-5 [facility] Erythrocyte distribution wid th (RBC) [Ratio]Ordered By: Dahlia Spring on 11-19-2024 Erythrocyte distribution width (RBC) [Entitic vol] 43.6 fL 35.1-43.9 [facility] Erythrocyte distribution wid th ratioOrdered By: Dahlia Spring on 11-19-2024 Erythrocyte distribution width (RBC) [Ratio] 12.9 % 11.6-14.6 [facility] Erythrocyte distribution wid th standard deviationOrdered By: Dahlia Spring on 11-19-2024 Erythrocyte distribution width (RBC) [Ratio] 43.6 fl 35.1-43.9 [facility] Glucose Challenge Gest 1H 50 prem 11-19-2024 GLU GEST 50g 1H 151 mg/dL High 70-140 [facility] Comment on above: Performed By: #### L 501.0250, BTS, L100.0100 ####[facility] [address] [place], [place], [id number] Glucose measurement at 2 андрей rs post-dose gestational glucose tolerance testOrdered By: Dahlai Spring on 11-19-2024 Glucose [Mass/Vol] 151 mg/dL High 70-140 [facility] HIVon 11-19-2024 HIV Non-Reactive Normal Nonreactive [facility] Comment on above: Result Comment: Non- Reactive Reactive Repeatedly reactive samples must be confirmed according to CDC recommended confirmatory algorithms. The subresults for either HIVAG or AHIV can be used as an aid in the selection of the confirmation algorithm for reactive samples. Send out specimens with Reactive results to [facility] for confirmation. Order the HIV antibody detection and differentiation: lc#[id number] Performed By: #### L 509.8002, L3890.6006 #### [facility] [address] [place], [place], [id number] Hematocrit Auto (Bld) [Volum e fraction]Ordered By: Dahlia Spring on 11-19-2024 Hematocrit (Bld) [Volume fraction] 34.1 % Low 37-47 [facility] Hemoglobin measurementOrdere d By: Dahlia Spring on 11-19-2024 Hemoglobin (Bld) [Mass/Vol] 11.6 g/dL Low 12.0-15.0 [facility] Immature granulocytes/100 WB C Auto (Bld)Ordered By: Dahlia Spring on 11-19-2024 Immature granulocytes/100 WBC (Bld) 0.600 % 0.0-0.9 [facility] Comment on above: IG% - Immature Granu locytes (promyelocytes, myelocytes and metamyelocytes) > 1% indicates that a LEFT SHIFT is Present. Laboratory - Chemistry and C hemistry - challengeOrdered By: Jena Campos on 11-19-2024 Glucose Ql (U) Negative [facility] - UrinalysisOrder ed By: Jena Campos on 11-19-2024 Protein Ql (U) Negative [facility] Lymphocytes Auto (Unsp spec) [#/Vol]Ordered By: Dahlia Spring on 11-19-2024 Lymphocytes (Bld) [#/Vol] 1.19 10*3/uL 0.83-4.51 [facility] Lymphocytes/100 WBC Auto (Un sp spec)Ordered By: Dahlia Spring on 11-19-2024 Lymphocytes/100 WBC (Bld) 15.5 % Low 19-41 [facility] MCV (mean corpuscular volume ) determinationOrdered By: Dahlia Spring on 11-19-2024 MCV (RBC) [Entitic vol] 92.4 fL 81-99 [facility] Mean corpuscular hemoglobin (MCH) determinationOrdered By: Dahlia Spring on 11-19-2024 MCH (RBC) [Entitic mass] 31.4 pg 27.0-32.0 [facility] Mean corpuscular hemoglobin concentration (MCHC) determinationOrdered By: Dahlia Spring on 11-19-2024 MCHC (RBC) [Mass/Vol] 34.0 g/dL 32-36 [facility] Mean platelet volume determi nationOrdered By: Dahlia Spring on 11-19-2024 Platelet mean volume (Bld) [Entitic vol] 12.6 fL High 6.2-12.0 [facility] Monocyte percentageOrdered B y: Dahlia Spring on 11-19-2024 Monocytes/100 WBC (Bld) 6.1 % 0-10 [facility] Neutrophil percentageOrdered By: Dahlia Spring on 11-19-2024 Neutrophils/100 WBC (Bld) 76.4 % High 47-70 [facility] No Panel InformationOrdered By: Jena Campos on 11-19-2024 HIV (1&2) Antibody Non-Reactive Nonreactive [facility] Comment on above: Non-ReactiveReactive Repeatedly reactive samples must be confirmed according to CDC recommended confirmatory algorithms. The subresults for either HIVAG or AHIV can be used as an aid in the selection of the confirmation algorithm for reactive samples.Send out specimens with Reactive results to [facility] for confirmation.Order the HIV antibody detection and differentiation: lc#[id number] Nucleated red blood cell per centageOrdered By: Dahlia Spring on 11-19-2024 Nucleated RBC/100 WBC (Bld) [Ratio] 0 % 0-5 [facility] Shop Teacher Office Visit Reporton 11-19-2024 Shop Teacher Office Visit Report [facility]'s [address], [address] [place] [address] OFFICE VISIT Date of Service: 11/19/24 MR#: [id number] Acct: [id number] Name: KATELYN ANTOINE Rep #: [id number] : 1995 Provider: Dr. Jena irving MD Age/Sex: 29/F Location: [facility] [place] Status: Signed Intake Vital Signs 07/07/24 08:59 11/05/24 09:55 11/19/24 08:49 Height 5 ft 7 in 5 ft 7 in 5 ft 7 in Weight: 139 lb 8 oz BMI 21.8 BP 114/77 Intake Visit Reasons: 28 wk ob/glucose Chief Complaint: 28 Week OB/Glucose Power Screwdriver Operator Required: No Is patient in pain?: No Allergies No Known Allergies Allergy (Verified 11/19/24 08:48) Medications ???Medication ???Instructions ???Recorded ???Confirmed ???Type acetaminophen 500 mg tablet 1,000 mg (2 x 500 mg) PO Q6H PRN 0 08/14/21 11/19/24 Rx PRN Pain 1-10 Or Fever #0 tabs magnesium 200 mg tablet 330 mg PO QDAY 06/27/24 11/19/24 H istory vitamins no.163-iron tab PO DAILY 06/27/24 11/19/24 His tory bis-gly 20 mg-folate no.10 1 mg tablet (PNV Tabs 20-1) pyridoxine (vitamin B6) 100 mg 100 mg PO QDAY 06/27/24 11/19/24 H istory tablet ondansetron 4 mg disintegrating 4 mg PO Q6H PRN nausea and 4 11/19/24 Rx tablet vomiting #90 tabs Last Menstrual Period: 05/05/24 Zika: Zika virus screening: Negative : No PFSH PFSH Medical History Seasonal allergies care following vaginal delivery 40 weeks gestation of Anemia IBS (irritable bowel syndrome) Anxiety Social History adopted: No household members: spouse and children number of children: 1 current occupational status: unemployed current occupation: [employer] pets and animals: Yes pets and animals: dog(s) history of recent travel: Yes ([place]) out of state: Yes out of country: No sexually active: Yes Smoking Status: Former smoker how long ago did patient quit smokin years alcohol intake: current alcohol intake frequency: holidays/special occasions only details: Not while substance use type: does not use well-balanced diet: daily or most days caffeine: Yes Type: coffee Number of servings: 1 eating out: 1-3 times/week during the past year weight has: remained stable what type of physical activity do you participate in: none conrad/hinduism: Adventism seatbelt use: sometimes do you feel safe at home: Yes additional social history: - [place]- 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 Date Name GA/Weeks Outcome Route Bth Weight Gen Labor Lgth Anesthesia Del Locatn Provider FOB 08/12/21 Mei 40 live - full term 6#12oz Female 12hr epidural [facility] Ca gabi [facility] Delivery Date: 08/12/21 Last Updated by: Fide Landis no complications HPI 28 wk ob/glucose Details: KATELYN ANTOINE is a 29 year old who presents for routine OB visit. OB Visit EMIR Calculator Estimated Delivery Date Method Current WG Current Estimate 02/09/25 Ultrasound #1 28w 2d Other Estimates 02/09/25 LMP (Certain) 28w 2d Expected Delivery Route/Plan Labor Preferences- CB/BF classes: [] labor support person: [] labor intervention preferences: [] pain management options preferred: [] cut cord/dad catch: [] : [] PP control planned: [] discussed possible routes of delivery and associated risks: [] special requests: [] Specific Issue/Plans Covid status: [] Flu vaccine: [] Tdap vaccine: [] Rhogam: [] LARC form signed: [] Problem list reviewed and updated with the most current plan of care details and appropriate orders placed. Relevant counseling for the gestational age provided. Continue routine care and follow up unless otherwise noted in visit notes/problem list details Initial Weight: 117 lb Date -???-???-???-???-?? ?-???-???-???-???-? ??-???-???- EGA Weight BP Urine Prot -???-???-???-???-?? ?-???-???-???-???-? ??-???-???- Glucose FHR FuHt Pres Dilation -???-???-???-???-?? ?-???-???-???-???-? ??-???-???- Effaced St Visit Note 07/07/24 -???-???-???-???-?? ?-???-???-???-???-? ??-???-???- 9w 0d 117 lb (+0 oz) 131/81 -???-???-???-???-?? ?-???-???-???-???-? ??-???-???- 175 -???-???-???-???-?? ?-???-???-???-???-? ??-???-???- KW- CRL cons with dates. declines NIPT. would like Sd hope appts. 08/12/24 -???-???-???-???-?? ?-???-???-???-???-? ??-???-???- 14w 1d 116 lb 8 oz (-8 oz) 108/72 Negative -???-???-???-???-?? ?-???-???-???-???-? ??-??? (more content not included)... Normal [facility] Platelet countOrdered By: Marvin Spring on 11-19-2024 Platelets (Bld) [#/Vol] 149 10*3/uL Low 150-450 [facility] RBC Auto (Bld) [#/Vol]Ordere d By: Dahlia Spring on 11-19-2024 RBC (Bld) [#/Vol] 3.69 10*6/uL Low 4.2-5.4 [facility] Syphilis Antibodieson 2024 Syphilis Abs Non-Reactive Normal Nonreactive [facility] Comment on above: Performed By: #### L 509.8002, L3890.6006 #### [facility] [address] [place], [place], [id number] T. pallidum abOrdered By: Angus Campos on 11-19-2024 Syphilis Total Antibody Non-Reactive Nonreactiv e [facility] Type AND Screenon 11-19-2024 Ab SCREEN GEL Negative Normal [facility] Comment on above: Order Comment: PN Performed By: #### L 501.0250, BTS, L100.0100 ####[facility] [address] [place], [address] White blood cell (WBC) count Ordered By: Dahlia Spring on 11-19-2024 WBC (Bld) [#/Vol] 7.7 10*3/uL 4.4-11.0 [facility] - Chemistry and C hemistry - challengeOrdered By: Dahlia Spring on 11-05-2024 Glucose Ql (U) Negative [facility] - UrinalysisOrder ed By: Dahlia Spring on 11-05-2024 Protein Ql (U) Negative [facility] Shop Teacher Office Visit Reporton 11-05-2024 Shop Teacher Office Visit Report [facility]'[address], [address] [place] [address] OFFICE VISIT Date of Service: 11/05/24 MR#: [id number] Acct: [id number] Name: KATELYN ANTOINE Rep #: [id number] : 1995 Provider: ZEFERINO Avina ams Age/Sex: 29/F Location: [facility] Status: Signed Intake Vital Signs 07/07/24 08:59 10/08/24 08:42 11/05/24 09:50 11/05/24 09:55 Height 5 ft 7 in 5 ft 7 in 5 ft 7 in 5 ft 7 in Weight: 137 lb 8 oz BMI 21.5 BP 108/74 Intake Visit Reasons: 26 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: No Is patient in pain?: No Allergies No Known Allergies Allergy (Verified 11/05/24 09:50) Medications ???Medication ???Instructions ???Recorded ???Confirmed ???Type acetaminophen 500 mg tablet 1,000 mg (2 x 500 mg) PO Q6H PRN 0 08/14/21 11/05/24 Rx PRN Pain 1-10 Or Fever #0 tabs magnesium 200 mg tablet 330 mg PO QDAY 06/27/24 11/05/24 H istory vitamins no.163-iron tab PO DAILY 06/27/24 11/05/24 His tory bis-gly 20 mg-folate no.10 1 mg tablet (PNV Tabs 20-1) pyridoxine (vitamin B6) 100 mg 100 mg PO QDAY 06/27/24 11/05/24 H istory tablet ondansetron 4 mg disintegrating 4 mg PO Q6H PRN nausea and 4 11/05/24 Rx tablet vomiting #90 tabs Last Menstrual Period: 05/05/24 Zika: Zika virus screening: Negative : No PFSH PFSH Medical History Seasonal allergies care following vaginal delivery 40 weeks gestation of Anemia IBS (irritable bowel syndrome) Anxiety Social History adopted: No household members: spouse and children number of children: 1 current occupational status: unemployed current occupation: [employer] pets and animals: Yes pets and animals: dog(s) history of recent travel: Yes ([place]) out of state: Yes out of country: No sexually active: Yes Smoking Status: Former smoker how long ago did patient quit smokin years alcohol intake: current alcohol intake frequency: holidays/special occasions only details: Not while substance use type: does not use well-balanced diet: daily or most days caffeine: Yes Type: coffee Number of servings: 1 eating out: 1-3 times/week during the past year weight has: remained stable what type of physical activity do you participate in: none conrad/hinduism: Adventism seatbelt use: sometimes do you feel safe at home: Yes additional social history: - [place]- 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 Date Name GA/Weeks Outcome Route Bth Weight Gen Labor Lgth Anesthesia Del Locatn Provider FOB 08/12/21 Mei 40 live - full term 6#12oz Female 12hr epidural [facility] Ca gabi [facility] Delivery Date: 08/12/21 Last Updated by: Fide Landis no complications HPI 26 wk ob Details: KATELYN ANTOINE is a 29 year old who presents for routine OB visit. OB Visit EMIR Calculator Estimated Delivery Date Method Current WG Current Estimate 02/09/25 Ultrasound #1 26w 2d Other Estimates 02/09/25 LMP (Certain) 26w 2d Expected Delivery Route/Plan Labor Preferences- CB/BF classes: [] labor support person: [] labor intervention preferences: [] pain management options preferred: [] cut cord/dad catch: [] : [] PP control planned: [] discussed possible routes of delivery and associated risks: [] special requests: [] Specific Issue/Plans Covid status: [] Flu vaccine: [] Tdap vaccine: [] Rhogam: [] LARC form signed: [] Problem list reviewed and updated with the most current plan of care details and appropriate orders placed. Relevant counseling for the gestational age provided. Continue routine care and follow up unless otherwise noted in visit notes/problem list details Initial Weight: 117 lb Date -???-???-???-???-?? ?-???-???-???-???-? ??-???-???- EGA Weight BP Urine Prot -???-???-???-???-?? ?-???-???-???-???-? ??-???-???- Glucose FHR FuHt Pres Dilation -???-???-???-???-?? ?-???-???-???-???-? ??-???-???- Effaced St Visit Note 07/07/24 -???-???-???-???-?? ?-???-???-???-???-? ??-???-???- 9w 0d 117 lb (+0 oz) 131/81 -???-???-???-???-?? ?-???-???-???-???-? ??-???-???- 175 -???-???-???-???-?? ?-???-???-???-???-? ??-???-???- KW- CRL cons with dates. declines NIPT. would like Sd hope appts. 08/12/24 -???-???-???-???-?? ?-???-???-???-???-? ??-???-???- 14w 1d 116 lb 8 oz (-8 oz) 108/72 Negative -???-???-???-???-?? ?-???-???-???-???-? ??-???-???- Negative 170 -???-???-???-???-?? ?-??? (more content not included)... Normal [facility] - Chemistry and C hemistry - challengeOrdered By: Dahlia Spring on 10-08-2024 Glucose Ql (U) Negative [facility] - UrinalysisOrder ed By: Dahlai Spring on 10-08-2024 Protein Ql (U) Negative [facility] Shop Teacher Office Visit Reporton 10-08-2024 Shop Teacher Office Visit Report [facility] [address] [place] [address], [address] [place] [address] OFFICE VISIT Date of Service: 10/08/24 MR#: [id number] Acct: [id number] Name: KATELYN ANTOINE Rep #: [id number] : 1995 Provider: ZEFERINO Avina ams Age/Sex: 29/F Location: [facility] Status: Signed Intake Vital Signs 07/07/24 08:59 09/10/24 07:35 10/08/24 08:37 10/08/24 08:42 Height 5 ft 7 in 5 ft 7 in 5 ft 7 in 5 ft 7 in Weight: 131 lb BMI 20.5 BP 109/73 Intake Visit Reasons: 22 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: No Is patient in pain?: No Allergies No Known Allergies Allergy (Verified 10/08/24 08:36) Medications ???Medication ???Instructions ???Recorded ???Confirmed ???Type acetaminophen 500 mg tablet 1,000 mg (2 x 500 mg) PO Q6H PRN 0 08/14/21 10/08/24 Rx PRN Pain 1-10 Or Fever #0 tabs magnesium 200 mg tablet 330 mg PO QDAY 06/27/24 10/08/24 H istory vitamins no.163-iron tab PO DAILY 06/27/24 10/08/24 His tory bis-gly 20 mg-folate no.10 1 mg tablet (PNV Tabs 20-1) pyridoxine (vitamin B6) 100 mg 100 mg PO QDAY 06/27/24 10/08/24 H istory tablet ondansetron 4 mg disintegrating 4 mg PO Q6H PRN nausea and 4 10/08/24 Rx tablet vomiting #90 tabs Last Menstrual Period: 05/05/24 Zika: Zika virus screening: Negative : No PFSH PFSH Medical History Seasonal allergies care following vaginal delivery 40 weeks gestation of Anemia IBS (irritable bowel syndrome) Anxiety Social History adopted: No household members: spouse and children number of children: 1 current occupational status: unemployed 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 pets and animals: Yes pets and animals: dog(s) history of recent travel: Yes ([place]) out of state: Yes out of country: No sexually active: Yes Smoking Status: Former smoker how long ago did patient quit smokin years alcohol intake: current alcohol intake frequency: holidays/special occasions only details: Not while substance use type: does not use well-balanced diet: daily or most days caffeine: Yes Type: coffee Number of servings: 1 eating out: 1-3 times/week during the past year weight has: remained stable what type of physical activity do you participate in: none conrad/hinduism: Adventism seatbelt use: sometimes do you feel safe at home: Yes additional social history: - [place]- 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 Date Name GA/Weeks Outcome Route Bth Weight Gen Labor Lgth Anesthesia Del Locatn Provider FOB 08/12/21 Mei 40 live - full term 6#12oz Female 12hr epidural [facility] Ca gabi [facility]ulp [facility] Delivery Date: 08/12/21 Last Updated by: Fide Landis no complications HPI 22 wk ob Details: KATELYN ANTOINE is a 29 year old who presents for routine OB visit. OB Visit EMIR Calculator Estimated Delivery Date Method Current WG Current Estimate 02/09/25 Ultrasound #1 22w 2d Other Estimates 02/09/25 LMP (Certain) 22w 2d Expected Delivery Route/Plan Labor Preferences- CB/BF classes: [] labor support person: [] labor intervention preferences: [] pain management options preferred: [] cut cord/dad catch: [] : [] PP control planned: [] discussed possible routes of delivery and associated risks: [] special requests: [] Specific Issue/Plans Covid status: [] Flu vaccine: [] Tdap vaccine: [] Rhogam: [] LARC form signed: [] Problem list reviewed and updated with the most current plan of care details and appropriate orders placed. Relevant counseling for the gestational age provided. Continue routine care and follow up unless otherwise noted in visit notes/problem list details Initial Weight: 117 lb Date -???-???-???-???-?? ?-???-???-???-???-? ??-???-???- EGA Weight BP Urine Prot -???-???-???-???-?? ?-???-???-???-???-? ??-???-???- Glucose FHR FuHt Pres Dilation -???-???-???-???-?? ?-???-???-???-???-? ??-???-???- Effaced St Visit Note 07/07/24 -???-???-???-???-?? ?-???-???-???-???-? ??-???-???- 9w 0d 117 lb (+0 oz) 131/81 -???-???-???-???-?? ?-???-???-???-???-? ??-???-???- 175 -???-???-???-???-?? ?-???-???-???-???-? ??-???-???- KW- CRL cons with dates. declines NIPT. would like [facility] appts. 08/12/24 -???-???-???-???-?? ?-???-???-???-???-? ??-???-???- 14w 1d 116 lb 8 oz (-8 oz) 108/72 Negative -???-???-???-???-?? ?-???-???-???-???-? ??-???-???- Negative 170 -???-???-???-???-?? ?-???-???- (more content not included)... Normal [facility] OB Anatomy w/ Transvaginalon 02-19-2025 OB Anatomy w/ Transvaginal [facility] Imaging Services [address] [place], [place] [id number] OB Anatomy w/ Transvaginal MR#: [id number] Acct: [id number] Name: KATELYN ANTOINE Rep #: [id number] : 1995 F 29 From: Angelo Owens i, DO PCP: Care Physician,No Primary Status: REG CLI Study: OB Anatomy w/ Transvaginal Date of Exam: 09/24 Exam# [id number] Ordering Dr: Patito Arzola DO PROCEDURE: ultrasound. REASON FOR EXAM: Cervical length and anatomy. COMPARISON: 07/07/2024 FINDINGS Single live intrauterine gestation in variable position. Cervical length 4.9 cm, closed. The placenta is posterior, grade 0. No retroplacental fluid collection. No gross anomalies are demonstrated. Biparietal diameter is 4.3 cm, at the 5th percentile. Head circumference is 17.5 cm, at the 29th percentile. Abdominal circumference is 15.9 cm, at the 68th percentile. Femur length is 3.1 cm, at the 19th percentile. There appears to be a three-vessel cord. heart rate 153 beats per minute. Facial features are grossly intact. Visualized extremities appear intact. cord insertion appears intact. Amniotic fluid level subjectively normal. No gross evidence of placenta previa. There appears to be a four-chamber heart. Questionable tiny echogenic cardiac focus versus artifact. US/OB Anatomy w/ Transvaginal IMPRESSION: Single live intrauterine gestation in variable position. Estimated gestational age by ultrasound 19 weeks, 5 days. No gross anomalies are demonstrated. Questionable tiny cardiac echogenic focus versus artifact. Please see measurements and percentiles as above. Amniotic fluid level is subjectively normal. Posterior placenta. Cervical length 4.9 cm, closed. Reading Location: [facility] CC: Dr. Patito Arzola DO; No Primary Care Physician Business Operations Coordinator: Signed Normal [facility] - Chemistry and C hemistry - challengeOrdered By: Dahlia Spring on 09-10-2024 Glucose Ql (U) Negative [facility] - UrinalysisOrder ed By: Dahlia Spring on 09-10-2024 Protein Ql (U) Negative [facility] Shop Teacher Office Visit Reporton 09-10-2024 Shop Teacher Office Visit Report [facility] [address] [place] [address], [address] [place] [address] OFFICE VISIT Date of Service: 09/10/24 MR#: [id number] Acct: [id number] Name: KATELYN ANTOINE Rep #: [id number] : 1995 Provider: ZEFERINO Avina ams Age/Sex: 29/F Location: [facility] [place] Status: Signed Intake Vital Signs 07/07/24 08:59 08/12/24 14:21 09/10/24 07:30 09/10/24 07:35 Height 5 ft 7 in 5 ft 7 in 5 ft 7 in 5 ft 7 in Weight: 124 lb BMI 19.4 BP 118/68 Intake Visit Reasons: 18 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: No Is patient in pain?: No Allergies No Known Allergies Allergy (Verified 09/10/24 07:29) Medications ???Medication ???Instructions ???Recorded ???Confirmed ???Type acetaminophen 500 mg tablet 1,000 mg (2 x 500 mg) PO Q6H PRN 0 08/14/21 09/10/24 Rx PRN Pain 1-10 Or Fever #0 tabs magnesium 200 mg tablet 330 mg PO QDAY 06/27/24 09/10/24 H istory vitamins no.163-iron tab PO DAILY 06/27/24 09/10/24 His tory bis-gly 20 mg-folate no.10 1 mg tablet (PNV Tabs 20-1) pyridoxine (vitamin B6) 100 mg 100 mg PO QDAY 06/27/24 09/10/24 H istory tablet ondansetron 4 mg disintegrating 4 mg PO Q6H PRN nausea and 4 09/10/24 Rx tablet vomiting #90 tabs Last Menstrual Period: 05/05/24 Zika: Zika virus screening: Negative : No PFSH PFSH Medical History Seasonal allergies care following vaginal delivery 40 weeks gestation of Anemia IBS (irritable bowel syndrome) Anxiety Social History adopted: No household members: spouse and children number of children: 1 current occupational status: unemployed current occupation: [employer] pets and animals: Yes pets and animals: dog(s) history of recent travel: Yes ([place]) out of state: Yes out of country: No sexually active: Yes Smoking Status: Former smoker how long ago did patient quit smokin years alcohol intake: current alcohol intake frequency: holidays/special occasions only details: Not while substance use type: does not use well-balanced diet: daily or most days caffeine: Yes Type: coffee Number of servings: 1 eating out: 1-3 times/week during the past year weight has: remained stable what type of physical activity do you participate in: none conrad/hinduism: Adventism seatbelt use: sometimes do you feel safe at home: Yes additional social history: - [place]- 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 Date Name GA/Weeks Outcome Route Bth Weight Infant Gen Labor Lgth Anesthesia Del Locatn Provider FOB 08/12/21 Mei 40 live - full term 6#12oz Female 12hr epidural [facility] Ca gabi [facility] Delivery Date: 08/12/21 Last Updated by: Fide Landis no complications HPI 18 wk ob Details: KATELYN ANTOINE is a 29 year old who presents for routine OB visit. OB Visit EMIR Calculator Estimated Delivery Date Method Current WG Current Estimate 02/09/25 Ultrasound #1 18w 2d Other Estimates 02/09/25 LMP (Certain) 18w 2d Expected Delivery Route/Plan Labor Preferences- CB/BF classes: [] labor support person: [] labor intervention preferences: [] pain management options preferred: [] cut cord/dad catch: [] : [] PP control planned: [] discussed possible routes of delivery and associated risks: [] special requests: [] Specific Issue/Plans Covid status: [] Flu vaccine: [] Tdap vaccine: [] Rhogam: [] LARC form signed: [] Problem list reviewed and updated with the most current plan of care details and appropriate orders placed. Relevant counseling for the gestational age provided. Continue routine care and follow up unless otherwise noted in visit notes/problem list details Initial Weight: 117 lb Date -???-???-???-???-?? ?-???-???-???-???-? ??-???-???- EGA Weight BP Urine Prot -???-???-???-???-?? ?-???-???-???-???-? ??-???-???- Glucose FHR FuHt Pres Dilation -???-???-???-???-?? ?-???-???-???-???-? ??-???-???- Effaced St Visit Note 07/07/24 -???-???-???-???-?? ?-???-???-???-???-? ??-???-???- 9w 0d 117 lb (+0 oz) 131/81 -???-???-???-???-?? ?-???-???-???-???-? ??-???-???- 175 -???-???-???-???-?? ?-???-???-???-???-? ??-???-???- KW- CRL cons with dates. declines NIPT. would like [facility] appts. 08/12/24 -???-???-???-???-?? ?-???-???-???-???-? ??-???-???- 14w 1d 116 lb 8 oz (-8 oz) 108/72 Negative -???-???-???-???-?? ?-???-???-???-???-? ??-???-???- Negative 170 -???-???-???-???-?? ?-???-???- (more content not included)... Normal [facility] - Chemistry and C hemistry - challengeon 08-12-2024 Glucose Ql (U) Negative [facility] - Urinalysison Protein Ql (U) Negative [facility] Shop Teacher Office Visit Reporton 08-12-2024 Shop Teacher Office Visit Report [facility]'s [address], [address] [place] [address] OFFICE VISIT Date of Service: 08/12/24 MR#: [id number] Acct: [id number] Name: KATELYN ANTOINE Rep #: [id number] : 1995 Provider: Dr. Patito Schuler DO Age/Sex: 29/F Location: [facility] [place] Status: Signed Intake Vital Signs 08/12/21 08:55 07/07/24 08:59 08/12/24 14:20 08/12/24 14:21 Height 5 ft 7 in 5 ft 7 in 5 ft 7 in 5 ft 7 in Weight: 116 lb 8 oz BMI 18.2 BP 108/72 Intake Visit Reasons: 14wk OB Power Screwdriver Operator Required: No Is patient in pain?: No Allergies No Known Allergies Allergy (Verified 08/12/24 14:20) Medications ???Medication ???Instructions ???Recorded ???Confirmed ???Type acetaminophen 500 mg tablet 1,000 mg (2 x 500 mg) PO Q6H PRN 08/14/21 08/12/24 Rx PRN Pain 1-10 Or Fever #0 tabs magnesium 200 mg tablet 330 mg PO QDAY 06/27/24 08/12/24 History vitamins no.163-iron tab PO DAILY 06/27/24 08/12/24 History bis-gly 20 mg-folate no.10 1 mg tablet (PNV Tabs 20-1) pyridoxine (vitamin B6) 100 mg 100 mg PO QDAY 06/27/24 08/12/24 History tablet ondansetron 4 mg disintegrating 4 mg PO Q6H PRN nausea and 07/07/24 08/12/24 Rx tablet vomiting #90 tabs Last Menstrual Period: 05/05/24 Zika: Zika virus screening: Negative : No PFSH PFSH Medical History Seasonal allergies care following vaginal delivery 40 weeks gestation of Anemia IBS (irritable bowel syndrome) Anxiety Social History adopted: No household members: spouse and children number of children: 1 current occupational status: unemployed current occupation: [employer] pets and animals: Yes pets and animals: dog(s) history of recent travel: Yes ([place]) out of state: Yes out of country: No sexually active: Yes Smoking Status: Former smoker how long ago did patient quit smokin years alcohol intake: current alcohol intake frequency: holidays/special occasions only details: Not while substance use type: does not use well-balanced diet: daily or most days caffeine: Yes Type: coffee Number of servings: 1 eating out: 1-3 times/week during the past year weight has: remained stable what type of physical activity do you participate in: none conrad/hinduism: Adventism seatbelt use: sometimes do you feel safe at home: Yes additional social history: - [place]- 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 Date Name GA/Weeks Outcome Route Bth Weight Gen Labor Lgth Anesthesia Del Locatn Provider FOB 08/12/21 Mei 40 live - full term 6#12oz Female 12hr epidural [facility] Delivery Date: 08/12/21 Last Updated by: Fide Landis no complications HPI 14wk OB Details: KATELYN ANTOINE is a 29 year old who presents for routine OB visit. OB Visit EMIR Calculator Estimated Delivery Date Method Current WG Current Estimate 02/09/25 Ultrasound #1 14w 1d Other Estimates 02/09/25 LMP (Certain) 14w 1d Expected Delivery Route/Plan Labor Preferences- CB/BF classes: [] labor support person: [] labor intervention preferences: [] pain management options preferred: [] cut cord/dad catch: [] : [] PP control planned: [] discussed possible routes of delivery and associated risks: [] special requests: [] Specific Issue/Plans Covid status: [] Flu vaccine: [] Tdap vaccine: [] Rhogam: [] LARC form signed: [] Problem list reviewed and updated with the most current plan of care details and appropriate orders placed. Relevant counseling for the gestational age provided. Continue routine care and follow up unless otherwise noted in visit notes/problem list details Initial Weight: 117 lb Date -???-???-???-???-?? ?-???-???-???-???-? ??-???-???- EGA Weight BP Urine Prot -???-???-???-???-?? ?-???-???-???-???-? ??-???-???- Glucose FHR FuHt Pres Dilation -???-???-???-???-?? ?-???-???-???-???-? ??-???-???- Effaced St Visit Note 07/07/24 -???-???-???-???-?? ?-???-???-???-???-? ??-???-???- 9w 0d 117 lb (+0 oz) 131/81 -???-???-???-???-?? ?-???-???-???-???-? ??-???-???- 175 -???-???-???-???-?? ?-???-???-???-???-? ??-???-???- KW- CRL cons with dates. declines NIPT. would like [facility] appts. 08/12/24 -???-???-???-???-?? ?-???-???-???-???-? ??-???-???- 14w 1d 116 lb 8 oz (-8 oz) 108/72 Negative -???-???-???-???-?? ?-???-???-???-???-? ??-???-???- Negative 170 -???-???-???-???-?? ?- (more content not included)... Normal [facility] PAP I-G w/rfx hrHPV-Aptimaon 07-14-2024 ADEQ Comment Normal . [facility] Comment on above: Order Comment: Maycol dalal Comment: [id number] Comment: No. of containers..01 ThinPrep Vial Result Comment: Sati sfactory for evaluation. No endocervical component is identified. An endocervical component is not commonly seen in the patient. Performed By: #### L 7400.0353, L7000.1800, M100.2200 ####[facility] [address] [place], [place], [address] COMM . Normal . [facility] Comment on above: Order Comment: Maycol dlaal Comment: [id number] Comment: No. of containers..01 ThinPrep Vial Performed By: #### L 7400.0353, L7000.1800, M100.2200 ####[facility] [address] [place], [address] COMMENT Comment Normal . [facility] Comment on above: Order Comment: Maycol dalal Comment: [id number] Comment: No. of containers..01 ThinPrep Vial Result Comment: This liquid based ThinPrep(R) pap test was screened with the use of an image guided system. Performed By: #### L 7400.0353, L7000.1800, M100.2200 ####[facility] [id number] [place], [address] DIAG Comment Normal . [facility] Comment on above: Order Comment: Speci men Comment: [id number] Comment: No. of containers..01 ThinPrep Vial Result Comment: NEGA TIVE FOR INTRAEPITHELIAL LESION OR MALIGNANCY. Performed By: #### L 7400.0353, L7000.1800, M100.2200 ####[facility] [address] [place], [address] HPV RFLX Comment Normal . [facility] Comment on above: Order Comment: Speci men Comment: [id number] Comment: No. of containers..01 ThinPrep Vial Result Comment: The HPV DNA reflex criteria were not met with this specimen result therefore, no HPV testing was performed. Performed at: [facility] [address] [place] [id number] Hospital Director: Domenic Dangelo MD, Phone: [phone] Performed at: [facility] - [facility] [id number] Hospital Director: Nalini Yee MD, Phone: [phone] Performed By: #### L 7400.0353, L7000.1800, M100.2200 ####[facility] [address] [place], [address] PAPSMR Comment Normal . [facility] Comment on above: Order Comment: Speci men Comment: [id number] Comment: No. of containers..01 ThinPrep Vial Result Comment: The Pap smear is a screening test designed to aid in the detection of premalignant and malignant conditions of the uterine cervix. It is not a diagnostic procedure and should not be used as the sole means of detecting cervical cancer. Both false-positive and false-negative reports do occur. Performed By: #### L 7400.0353, L7000.1800, M100.2200 ####[facility] [address] [place], [address] PERFORM Comment Normal . [facility] Comment on above: Order Comment: Speci men Comment: [id number] Comment: No. of containers..01 ThinPrep Vial Result Comment: Sandra Coronado, Chemical Process Operator (ASCP) Performed By: #### L 7400.0353, L7000.1800, M100.2200 ####[facility] [address] [place], [address] Urine Cultureon 07-09-2024 URC Below infection level. Mixed Gram Positive Organisms Bonifay Count 1000-10,000 MIXC Mixed contaminants. Submit a new specimen if indicated. Normal [facility] Comment on above: Performed By: #### L 7400.0353, L7000.1800, M100.2200 ####[facility] [address] [place], [address] Chlamydia/GC MILES aptimaon CHLAMY,NUC ACID Negative Normal Negative [facility] Comment on above: Performed By: #### L 7400.0353, L7000.1800, M100.2200 ####[facility] [address] [place], [address] GC BY NUC ACID Negative Normal Negative [facility] Comment on above: Result Comment: Perf ormed at: =G - [facility] [id number] Hospital Director: Nalini Yee MD, Phone: [phone] Performed By: #### L 7400.0353, L7000.1800, M100.2200 ####[facility] [address] [place], [address] CBC W/Diff, Automatedon 12- Absolute Lymph 1.44 X10 3/uL Normal 0.83-4.51 [facility] Comment on above: Performed By: #### L 3890.6300, L3890.6100, L3890.6005, L100.0100, BTS, L509.4005, L509.8000 ####[facility] [address] [place], [address] Absolute Neut 5.8 X10 3/uL Normal 2.0-7.7 [facility] Comment on above: Performed By: #### L 3890.6300, L3890.6100, L3890.6005, L100.0100, BTS, L509.4005, L509.8000 ####[facility] [address] [place], [address] Basophils/100 WBC (Bld) 0.4 % Normal 0-1 [facility] Comment on above: Performed By: #### L 3890.6300, L3890.6100, L3890.6005, L100.0100, BTS, L509.4005, L509.8000 ####[facility] [address] [place], [address] Eosinophils/100 WBC (Bld) 1.1 % Normal 0-5 [facility] Comment on above: Performed By: #### L 3890.6300, L3890.6100, L3890.6005, L100.0100, BTS, L509.4005, L509.8000 ####[facility] [address] [place], [address] Erythrocyte distribution width (RBC) [Ratio] 12.2 % Normal 11.6-14.6 [facility] Comment on above: Performed By: #### L 3890.6300, L3890.6100, L3890.6005, L100.0100, BTS, L509.4005, L509.8000 ####[facility] [address] [place], [address] Hematocrit (Bld) [Volume fraction] 41.9 % Normal 37-47 [facility] Comment on above: Performed By: #### L 3890.6300, L3890.6100, L3890.6005, L100.0100, BTS, L509.4005, L509.8000 ####[facility] [address] [place], [address] Hemoglobin (Bld) [Mass/Vol] 14.1 g/dL Normal 12.0-15.0 [facility] Comment on above: Performed By: #### L 3890.6300, L3890.6100, L3890.6005, L100.0100, BTS, L509.4005, L509.8000 ####[facility] [address] [place], [address] IG% 0.400 Normal 0.0-0.9 [facility] Comment on above: Result Comment: IG% - Immature Granulocytes (promyelocytes, myelocytes and metamyelocytes) > 1% indicates that a LEFT SHIFT is Present. Performed By: #### L 3890.6300, L3890.6100, L3890.6005, L100.0100, BTS, L509.4005, L509.8000 ####[facility] [address] [place], [address] Lymphocytes/100 WBC (Bld) 18.3 % Low 19-41 [facility] Comment on above: Performed By: #### L 3890.6300, L3890.6100, L3890.6005, L100.0100, BTS, L509.4005, L509.8000 ####[facility] [address] [place], [address] MCH (RBC) [Entitic mass] 29.7 pg Normal 27.0-32.0 [facility] Comment on above: Performed By: #### L 3890.6300, L3890.6100, L3890.6005, L100.0100, BTS, L509.4005, L509.8000 ####[facility] [address] [place], [address] MCHC (RBC) [Mass/Vol] 33.7 g/dL Normal 32-36 [facility] Comment on above: Performed By: #### L 3890.6300, L3890.6100, L3890.6005, L100.0100, BTS, L509.4005, L509.8000 ####[facility] [address] [place], [address] MCV (RBC) [Entitic vol] 88.4 fL Normal 81-99 [facility] Comment on above: Performed By: #### L 3890.6300, L3890.6100, L3890.6005, L100.0100, BTS, L509.4005, L509.8000 ####[facility] [address] [place], [address] Monocytes/100 WBC (Bld) 6.6 % Normal 0-10 [facility] Comment on above: Performed By: #### L 3890.6300, L3890.6100, L3890.6005, L100.0100, BTS, L509.4005, L509.8000 ####[facility] [address] [place], [address] Neutrophils/100 WBC (Bld) 73.2 % High 47-70 [facility] Comment on above: Performed By: #### L 3890.6300, L3890.6100, L3890.6005, L100.0100, BTS, L509.4005, L509.8000 ####[facility] [address] [place], [address] Nucleated RBC (Bld) [#/Vol] 0 10*3/uL Normal 0-5 [facility] Comment on above: Performed By: #### L 3890.6300, L3890.6100, L3890.6005, L100.0100, BTS, L509.4005, L509.8000 ####[facility] [address] [place], [address] Platelet mean volume (Bld) [Entitic vol] 11.8 fL Normal 6.2-12.0 [facility] Comment on above: Performed By: #### L 3890.6300, L3890.6100, L3890.6005, L100.0100, BTS, L509.4005, L509.8000 ####[facility] [address] [place], [address] Platelets (Bld) [#/Vol] 215 10*3/uL Normal 150-450 [facility] Comment on above: Performed By: #### L 3890.6300, L3890.6100, L3890.6005, L100.0100, BTS, L509.4005, L509.8000 ####[facility] [address] [place], [address] RBC (Bld) [#/Vol] 4.74 10*6/uL Normal 4.2-5.4 [facility] Comment on above: Performed By: #### L 3890.6300, L3890.6100, L3890.6005, L100.0100, BTS, L509.4005, L509.8000 ####[facility] [address] [place], [address] RDW SD 39.3 fl Normal 35.1-43.9 [facility] Comment on above: Performed By: #### L 3890.6300, L3890.6100, L3890.6005, L100.0100, BTS, L509.4005, L509.8000 ####[facility] [address] [place], [address] WBC (Bld) [#/Vol] 7.9 10*3/uL Normal 4.4-11.0 [facility] Comment on above: Performed By: #### L 3890.6300, L3890.6100, L3890.6005, L100.0100, BTS, L509.4005, L509.8000 ####[facility] [address] [place], [place], [phone] HIV - WCHon 07-07-2024 HIV Non-Reactive Normal Nonreactive [facility] Comment on above: Order Comment: Reaso n for Exam: Performed By: #### L 3890.6300, L3890.6100, L3890.6005, L100.0100, BTS, L509.4005, L509.8000 ####[facility] [address] [place], [place], [phone] Hepatitis B Surface Antigeno n 07-07-2024 HEP B Surf Ag [facility] Comment on above: Order Comment: Reaso n for Exam: Performed By: #### L 3890.6300, L3890.6100, L3890.6005, L100.0100, BTS, L509.4005, L509.8000 ####[facility] [address] [place], [place], [phone] Hepatitis C Antibodyon 07-07 Hepatitis C AB Non-Reactive [facility] Comment on above: Order Comment: Reaso n for Exam: Result Comment: Non Reactive: < 0.8 Equivocal: >/= 0.8 to < 1.0 Reactive: >/= 1.0 The CDC requires that a reactive/equivocal HCV antibody result be sent out for confirmation. HCV Quant by PCR testing. Performed By: #### L 3890.6300, L3890.6100, L3890.6005, L100.0100, BTS, L509.4005, L509.8000 ####[facility] [address] [place], [place], [phone] L509.8000on 07-07-2024 Syphilis Abs Non-Reactive Normal [facility] Comment on above: Order Comment: Reaso n for Exam: Performed By: #### L 3890.6300, L3890.6100, L3890.6005, L100.0100, BTS, L509.4005, L509.8000 ####[facility] [address] 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 Is patient in pain?: No Allergies No Known Allergies Allergy (Verified 07/07/24 08:52) Medications ???Medication ???Instructions ???Recorded ???Confirmed ???Type acetaminophen 500 mg tablet 1,000 mg (2 x 500 mg) PO Q6H PRN 08/14/21 Rx PRN Pain 1-10 Or Fever #0 tabs magnesium 200 mg tablet 330 mg PO QDAY 06/27/24 History vitamins no.163-iron tab PO DAILY 06/27/24 History bis-gly 20 mg-folate no.10 1 mg tablet (PNV Tabs 20-1) pyridoxine (vitamin B6) 100 mg 100 mg PO QDAY 06/27/24 History tablet ondansetron 4 mg disintegrating 4 mg PO Q6H PRN nausea and 07/07/24 07/07/24 Rx tablet vomiting #90 tabs Last Menstrual Period: 05/05/24 Zika: Zika virus screening: Negative : Yes Have you fallen in the past year?: No PFSH PFSH Medical History Seasonal allergies care following vaginal delivery 40 weeks gestation of Anemia IBS (irritable bowel syndrome) Anxiety Social History adopted: No household members: spouse and children number of children: 1 current occupational status: unemployed current occupation: [employer] pets and animals: Yes pets and animals: dog(s) history of recent travel: Yes ([place]) out of state: Yes out of country: No sexually active: Yes Smoking Status: Former smoker how long ago did patient quit smokin years alcohol intake: current alcohol intake frequency: holidays/special occasions only details: Not while substance use type: does not use well-balanced diet: daily or most days caffeine: Yes Type: coffee Number of servings: 1 eating out: 1-3 times/week during the past year weight has: remained stable what type of physical activity do you participate in: none conrad/hinduism: Adventism seatbelt use: sometimes do you feel safe at home: Yes additional social history: - [place]- 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 Date Name GA/Weeks Outcome Route Bth Weight Infant Gen Labor Lgth Anesthesia Del Locatn Provider FOB 08/12/21 Mei 40 live - full term 6#12oz Female 12hr epidural [facility] g[facility] Delivery Date: 08/12/21 Last Updated by: Fide Landis no complications HPI New OB, LMP 05/05, EMIR 02/09/25 Details: KATELYN ANTOINE is a 29 year old who presents for New OB visit. OB Visit EMIR Calculator Estimated Delivery Date Method Current WG Current Estimate 02/09/25 Ultrasound #1 9w 0d Other Estimates 02/09/25 LMP (Certain) 9w 0d Comments: HIV: Urine Culture: Sequential Screen: NIPT Screen: Estimated Due Date: 02/09/25 Expected Delivery Route/Plan Labor Preferences- CB/BF classes: [] labor support person: [] labor intervention preferences: [] pain management options preferred: [] cut cord/dad catch: [] : [] PP control planned: [] discussed possible routes of delivery and associated risks: [] special requests: [] Specific Issue/Plans Covid status: [] Flu vaccine: [] Tdap vaccine: [] Rhogam: [] LARC form signed: [] Problem list reviewed and updated with the most current plan of care details and appropriate orders placed. Relevant counseling for the gestational age provided. Continue routine care and follow up unless otherwise noted in visit notes/problem list details Initial Weight: 117 lb Date -???-???-???-???-?? ?-???-???-???-???-? ??-???-???- EGA Weight BP Urine Prot -???-???-???-???-?? ?-???-???-???-???-? ??-???-???- Glucose FHR FuHt Pres Dilation -???-???-???-???-?? ?-???-???-???-???-? ??-???-???- Effaced St Visit Note 07/07/24 -???-???-???-???-?? ?-???-???-???-???-? ??-???-???- 9w 0d 117 lb (+0 oz) 131/81 -???-???-???-???-?? ?-???-???-???-???-? ??-???-???- 175 -???-???-???-???-?? ?-???-???-???-???-? ??-???-???- KW- CRL cons with dates. declines NIPT. would like [facility] appts. Menstrual History Last Menstrual Period: 05/05/24 Reported LMP: definite Jennifer (more content not included)... Normal [facility] Rubella IgGon 07-07-2024 Rubella IgG Reactive Normal Nonreactive [facility] Comment on above: Order Comment: Reaso n for Exam: Result Comment: Anti body Results Interpretation of Immune Status Non Reactive Presumed Non-Immune Equivocal Equivocal Reactive Presumed Immune Performed By: #### L 3890.6300, L3890.6100, L3890.6005, L100.0100, BTS, L509.4005, L509.8000 ####[facility] [address] [place], [address] Type AND Screenon 07-07-2024 Ab SCREEN GEL Negative Normal [facility] Comment on above: Order Comment: PN Performed By: #### L 3890.6300, L3890.6100, L3890.6005, L100.0100, BTS, L509.4005, L509.8000 ####[facility] [address] [place], [place], [id number] ABO and Rh group Nom (Bld) Blood group A Rh(D) negative Normal [facility] Comment on above: Order Comment: PN Performed By: #### L 3890.6300, L3890.6100, L3890.6005, L100.0100, BTS, L509.4005, L509.8000 ####[facility] [address] [place], [place], [id number] [facility] [employer] BREAST LTD RTon 12-06 [facility] [employer] BREAST [employer] RT * * *Final Report* * * DATE OF EXAM: Dec 06 2021 11:53AM WRU [id number] - [facility] [employer] BREAST [employer] RT / PROCEDURE REASON: Mass of upper outer quadrant of right breast * * * * Physician Interpretation * * * * #[id number] - [facility] [employer] BREAST [employer] RT LIMITED ULTRASOUND OF RIGHT BREAST: 12/06/2021 HISTORY: Mass Of Upper Outer Quadrant Of Right Breast. RESULT: No prior exams were available for comparison. Color flow and real-time ultrasound of the right breast 10 o'clock region were performed. Back scale images of the real-time examination were reviewed. There is a benign 1.4 cm x 1.3 cm x 1.3 cm oval cyst with a smooth internal wall in the right breast at 10 o'clock middle depth 3 cm from the nipple. This oval cyst is anechoic and septated with posterior acoustic enhancement. This correlates as palpated. Color flow imaging demonstrates that there is no vascularity present. IMPRESSION: BENIGN FINDING There is no sonographic evidence of malignancy. The 1.4 cm x 1.3 cm x 1.3 cm oval cyst in the right breast is benign. Maverick adams/nnamdi:12/06/2021 12:00:50 Teachers Assistant(s): Tammy Victoria [facility] Ultrasound BI-RADS: 2 Benign finding Multiple national specialty organizations have released breast cancer screening guidelines for women at average risk for developing breast cancer - guidelines that are based on both evidence and opinion, yet differ on when to start and how often to screen for breast cancer. With representation from Breast Imaging, Internal Medicine, Women's Health, Family Medicine, and Medical/Surgical Oncology, the [facility] has carefully reviewed the data and reached the following consensus: 1) All women should engage in shared decision-making with their providers to decide when to start and how often to screen; 2) All women should have the opportunity to start screening mammography at age 40; 3) For women ages 45-55, we recommend annual screening mammograms; 4) For women ages 55 and over, we support both the transition from an annual to a biennial interval if this aligns more with patient's values and preferences, or continuation with annual screening; 5) All women should discuss with their providers when to stop screening mammograms. Business Operations Coordinator: Nnamdi Transcribe Date/Time: Dec 06 2021 11:53A Dictated by : MAVERICK KIRKLAND MD This examination was interpreted and the report reviewed and electronically signed by: MAVERICK KIRKLAND MD on Dec 06 2021 12:00PM EST [id number] ACN Normal [facility] [employer] BREAST LTD RTon 2 [facility] CNPPallavi 11-28-2021 CNPN Telephone (OBGYWM) ---- DONAVONKATELYN ([id number]) 1995 F Date Time Provider Department 11/28/21 CATY JAEGER During your visit today, we recorded the following information about you: Patito Landis RN 11/28/2021 10:13 AM Signed Patient is to have diagnostic breast imaging for lumps found in her right breast back in September. States one of lumps has completely gone and the other one is half the size. Asking if JAILYN still wants her to have the imaging. Her appointment is December 06 Patito Jaeger APRN.CNM 11/28/2021 10:42 AM Signed Yes please. Thank you, Caty Jaeger APRN.ZEFERINO Landis RN 11/28/2021 10:48 AM Signed Left message for patient to call office. JAILYN would like patient to still have her diagnostic breast imaging. Patito Landis RN 11/28/2021 10:51 AM Signed Patient notified. Patito Landis RN Allergies As of Date: 11/28/2021 Noted Allergy Reaction SEASONAL ALLERGIES 03/23/2014 14 - Other: See Comments Date Reviewed: 09/21/2021 Reviewed by: Caty Jaeger APRN.CNM - Fully Assessed Reason for Visit: Patient Question [7211] Prescriptions as of 11/28/2021 - ferrous sulfate (IRON) 325 mg (65 mg iron) tablet Take 325 mg by mouth daily with breakfast. Taking M W F - Wqzaznjx-Vg-Rip-Fe- FA ( VITAMIN) tab Take 1 tablet by mouth. 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 CYTOLOGYon 09-21-2021 CYTOLOGY Specimen originated from [facility] Specimen #: [id number] Submitting Physician: CATY JAEGER CNM SPECIMEN SUBMITTED A: CERVICAL, SCREENING, FLUID FINAL DIAGNOSIS A. CERVICAL, SCREENING, FLUID Satisfactory for interpretation. Negative for intraepithelial lesion or malignancy. This specimen has been analyzed by the ThinPrep Imaging System, an automated imaging and review system, which assists the laboratory in evaluating cells on ThinPrep Pap tests. Following automated imaging, selected tony from every slide are reviewed by a sports equipment racker. ZEYNEP Trujillo(ASCP) (Electronic Signature) CLINICAL DATA ROUTINE EXAM, HPV Testing: Yes, Reflex HPV for ASCUS Date of Last Menstrual Period: Recent STAINS A: CERVICAL, SCREENING, FLUID THIN PREP SHADE BANDER Hedy Cole M.D., Insurance Adjustor Date of Report: 09/30/2021 Date of Procedure: 09/21/2021 Date of Receipt: 09/22/2021 Submitted by: CATY JAEGER, CNM Location: [facility] Diagnostic interpretation performed at [facility], [address] [address]. [place] Number: [id number] The Pap Smear is a screening test for cervical cancer. False negative results occur with all screening tests, emphasizing the need for rescreening at recommended intervals, and clinical correlation. Normal [facility] GROUP B STREP PCRon 07-21-20 21 GROUP B STREP PCR Negative Normal [facility] Comment on above: Performed By: #### G BPCR ####[address] [phone] 100g, 3hr gest. OGTTon 06-08 Glucose [Mass/Vol] 84 mg/dL Normal 74-94 [facility] Comment on above: Result Comment: [facility] Congress of Obstetricians and Gynecologists (Lewis/Justinan) guidelines state gestational diabetes mellitus is present when 2 or more of the plasma glucose concentrations meet or exceed the following levels: fastin mg/dl, 1 hr: 180 mg/dl, 2 hr: 155 mg/dl, and 3 hr: 140 mg/dl. Performed By: #### G TGST3 ####[address] [phone] Glucose [Mass/Vol] 114 mg/dL Normal 74-179 [facility] Comment on above: Result Comment: [facility] Congress of Obstetricians and Gynecologists (Lewis/Coustan) guidelines state gestational diabetes mellitus is present when 2 or more of the plasma glucose concentrations meet or exceed the following levels: fastin mg/dl, 1 hr: 180 mg/dl, 2 hr: 155 mg/dl, and 3 hr: 140 mg/dl. Performed By: #### G TGST3 ####[address] [phone] Glucose [Mass/Vol] 115 mg/dL Normal 74-154 [facility] Comment on above: Result Comment: [facility] Congress of Obstetricians and Gynecologists (Lewis/Coustan) guidelines state gestational diabetes mellitus is present when 2 or more of the plasma glucose concentrations meet or exceed the following levels: fastin mg/dl, 1 hr: 180 mg/dl, 2 hr: 155 mg/dl, and 3 hr: 140 mg/dl. Performed By: #### G TGST3 ####[facility] [place], [place] [phone] Glucose [Mass/Vol] 109 mg/dL Normal 74-139 [facility] Comment on above: Result Comment: [facility] Congress of Obstetricians and Gynecologists (Debbie/Hilda) guidelines state gestational diabetes mellitus is present when 2 or more of the plasma glucose concentrations meet or exceed the following levels: fastin mg/dl, 1 hr: 180 mg/dl, 2 hr: 155 mg/dl, and 3 hr: 140 mg/dl. Performed By: #### G TGST3 ####[facility] [place], [place] [phone] Jeanine 05-26-2021 [facility] Telephone (OBGYWM) ---- KATELYN ANTOINE ([id number]) 1995 F Date Time Provider Department 05/26/21 ARTURO CULP During your visit today, we recorded the following information about you: Treva Langford RN 05/26/2021 12:27 PM Signed ----- Message from Arturo Culp MD sent at 05/26/2021 12:18 PM EDT ----- Needs 3hr GTT Needs iron for anemia M-W-F MD Treva Nair RN 05/26/2021 12:28 PM Signed Please file order. Treva Culp MD 05/26/2021 1:35 PM Signed Done MD Treva Nair RN 05/26/2021 1:51 PM Signed Patient notified. Treva Langford RN Allergies As of Date: 05/26/2021 Noted Allergy Reaction SEASONAL ALLERGIES 03/23/2014 14 - Other: See Comments Date Reviewed: 05/25/2021 Reviewed by: Mague Loomis Ma - Fully Assessed Reason for Visit: Results [95] Primary Visit Diagnosis:Abnormal glucose in , antepartum [O99.810] Order(s):GEST GLUC RAJNI, 3-HR, 100 GM, FASTING [SQGTGST3] Order #: [id number] FUTURE Prescriptions as of 05/26/2021 - cetirizine HCl (ZYRTEC ORAL) Take by mouth. - ondansetron orally disintegrating (ZOFRAN ODT) 4 mg disintegrating tablet Take 1 tablet by mouth every 8 hours as needed for nausea/vomiting. - Uhikizaz-Pv-Aob-Fe- FA ( VITAMIN) tab Take 1 tablet by mouth. 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 GSCRNon 05-25 Glucose [Mass/Vol] 164 mg/dL High 74-134 [facility] Comment on above: Result Comment: [facility] Congress of Obstetricians and Gynecologists (Debbie/Hilda) guidelines state a gestational diabetes mellitus positive screen is made, in women not previously diagnosed with overt diabetes, when the 1 hr plasma glucose level is equal to or above 140 mg/dL. The [facility] [employer] [facility] [employer] recommends a 135 mg/dL cutoff. Performed By: #### G LTGST, SYPHTX ####[facility] [address] [place], [place] [phone] CBC and Differentialon 05-25 Abs Baso <0.03 Normal <0.11 [facility] Abs [place] 0.70 k/uL Normal <0.87 [facility] Abs Neut 7.36 k/uL Normal 1.45-7.50 [facility] Absolute nRBC <0.01 Normal <0.01 [facility] Basophils/100 WBC (Bld) 0.2 % Normal C [facility] DTYPE Auto Diff Normal [facility] Eosinophils (Bld) [#/Vol] 0.11 10*3/uL Normal <0.46 [facility] Eosinophils/100 WBC (Bld) 1.2 % Normal [facility] Erythrocyte distribution width (RBC) [Ratio] 12.8 % Normal 11.5-15.0 [facility] Hematocrit (Bld) [Volume fraction] 31.0 % Low 36.0-46.0 [facility] Hemoglobin (Bld) [Mass/Vol] 10.8 g/dL Low 11.5-15.5 [facility] Lymphocytes (Bld) [#/Vol] 1.36 10*3/uL Normal 1.00-4.00 [facility] Lymphocytes/100 WBC (Bld) 14.2 % Normal [facility] MCH 32.2 pG Normal 26.0-34.0 [facility] MCHC (RBC) [Mass/Vol] 34.8 g/dL Normal 30.5-36.0 [facility] MCV (RBC) [Entitic vol] 92.5 fL Normal 80.0-100.0 [facility] Monocytes/100 WBC (Bld) 7.3 % Normal [facility] Neutrophils/100 WBC (Bld) 77.1 % Normal [facility] NRBCs 0.0 /100 WBC Normal 0 [facility] Platelet mean volume (Bld) [Entitic vol] 11.9 fL Normal 9.0-12.7 [facility] Platelets (Bld) [#/Vol] 169 10*3/uL Normal 150-400 [facility] RBC (Bld) [#/Vol] 3.35 10*6/uL Low 3.90-5.20 [facility] WBC (Bld) [#/Vol] 9.55 10*3/uL Normal 3.70-11.00 [facility] Syphilis Ttl w/Reflxon 05-25 Syphilis Interp Cannot exclude recent Treponemal infection if specimen collected within 7 to 10 days after appearance of suspect lesions or 2 to 3 weeks after an exposure. Clinical correlation is required. Normal [facility] Comment on above: Performed By: #### G LTGST, SYPHTX ####[facility] [address] [place], [place] [phone] Syphilis Screen Rslt Non-Reactive Normal Non Reactive [facility] Comment on above: Performed By: #### G LTGST, SYPHTX ####[facility] [address] [place], [place] [phone] Type and Scr,Prenatlon 05-25 ABO/RH(D) Negative Normal [facility] Comment on above: Performed By: #### T SPN ####[facility] [place], [place] [phone] [facility] Telephone (IDA) ---- KATELYN ANTOINE ([id number]) 1995 F Date Time Provider Department 03/25/21 SHERMAN WALKER During your visit today, we recorded the following information about you: Alexandria Quigley 03/25/2021 9:49 AM Signed Katelyn Antoine called today. Caller's (home) [phone] (cell) Reason for call: Pt called returning your call. Please advise. Alexandria Quigley Allergies As of Date: 03/25/2021 Noted Allergy Reaction SEASONAL ALLERGIES 03/23/2014 14 - Other: See Comments Date Reviewed: 03/24/2021 Reviewed by: Esperanza Jimenez Ma - Fully Assessed Reason for Visit: Return Provider Call [[id number]] Prescriptions as of 03/25/2021 - ondansetron orally disintegrating (ZOFRAN ODT) 4 mg disintegrating tablet Take 1 tablet by mouth every 8 hours as needed for nausea/vomiting. - Xgalvqqr-Ee-Iwc-Fe- FA ( VITAMIN) tab Take 1 tablet by mouth. 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 Comment on above: Performed By: #### S EQL2 ####[facility] [address] [place], [place] [phone] SE1 LIV A 0.63 MoM Normal [facility] Comment on above: Performed By: #### S EQL2 ####[facility] [address], [place] [phone] SE2 AFP 0.88 MoM Normal [facility] Comment on above: Performed By: #### S EQL2 ####[place] [address] [address] [place] [phone] SE2 Age Rsk Dn Snyd 1:1000 Normal [facility] Comment on above: Performed By: #### S EQL2 ####[place] [address] [place] [phone] SE2 Dimrc Inhibin A 1.20 MoM Normal [facility] Comment on above: Performed By: #### S EQL2 ####[place] [address] [phone] SE2 hCG 1.89 MoM Normal [facility] Comment on above: Performed By: #### S EQL2 ####[place] [address] [place] [phone] SE2 Interp Negative Normal Screen Negative [facility] Comment on above: Performed By: #### S EQL2 ####[place] [address] [place] [phone] SE2 Scr Rsk ONTD 1:7000 Normal [facility] Comment on above: Performed By: #### S EQL2 ####[place] [address] [phone] SE2 Scr Rsk Trsmy 13 <1:80914 Normal [facility] Comment on above: Performed By: #### S EQL2 ####[place] [address] [phone] SE2 Scr Rsk Trsmy18 <1:05780 Normal [facility] Comment on above: Performed By: #### S EQL2 ####[place] [address] [phone] SE2 Scrn Rsk Dn Synd 1:2600 Normal [facility] Comment on above: Performed By: #### S EQL2 ####[place] [address] [place], [place] [phone] SE2 Unconj uE3 0.82 MoM Normal [facility] Comment on above: Performed By: #### S EQL2 ####[facility] [place], [place] [phone] Seq Scrn Second Trim View results in Scanned Documents link when available. Normal [facility] Comment on above: Performed By: #### S EQL2 ####[facility] [place] [address] [phone] SEQ Staff Review Reviewed by Germán Anaya MD, PhD ([id number]) Normal [facility] Comment on above: Performed By: #### S EQL2 ####[facility] [place], [place] [phone] CNPNon 02-10-2021 CNPN Telephone (OBGYF2) ---- KATELYN ANTOINE ([id number]) 1995 F Date Time Provider Department 02/10/21 LUIS ANTONIO LONG OBGYF2 During your visit today, we recorded the following information about you: Mirian Ponce RN 02/10/2021 9:08 AM Signed Patient called and left message for patient on identified voicemail. Katelyn Antoine was informed of negative Sequential screen first trimester. Katelyn Antoine was informed of her risk assessment for Trisomy 21 and 18. Based on these results Dr. Long?s recommendation is for patient to follow-up with Sequential second trimester screening (02/27-03/13) and level II anatomy scan after 18wks. Left message for patient to call with questions. Mirian Ponce RN Allergies As of Date: 02/10/2021 Noted Allergy Reaction SEASONAL ALLERGIES 03/23/2014 14 - Other: See Comments Date Reviewed: 02/03/2021 Reviewed by: Yuki Braden APRN.CNM - Fully Assessed Reason for Visit: sequential results [Other] Prescriptions as of 02/10/2021 - ondansetron orally disintegrating (ZOFRAN ODT) 4 mg disintegrating tablet Take 1 tablet by mouth every 8 hours as needed for nausea/vomiting. - Awdevtpx-Wq-Rdl-Fe- FA ( VITAMIN) tab Take 1 tablet by mouth. 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 CBCon 02-03-2021 Absolute nRBC <0.01 Normal <0.01 [facility] Comment on above: Performed By: #### S EQL1, SYPHTX, HIV12C, HBSAG, RUBIGG, AHCV1B ####[facility] [place], [place] [phone] Erythrocyte distribution width (RBC) [Ratio] 12.3 % Normal 11.5-15.0 [facility] Comment on above: Performed By: #### S EQL1, SYPHTX, HIV12C, HBSAG, RUBIGG, AHCV1B ####[place] [id number] [place], [place] [phone] Hematocrit (Bld) [Volume fraction] 37.3 % Normal 36.0-46.0 [facility] Comment on above: Performed By: #### S EQL1, SYPHTX, HIV12C, HBSAG, RUBIGG, AHCV1B ####[place] [address], [place] [phone] Hemoglobin (Bld) [Mass/Vol] 12.9 g/dL Normal 11.5-15.5 [facility] Comment on above: Performed By: #### S EQL1, SYPHTX, HIV12C, HBSAG, RUBIGG, AHCV1B ####[address] [phone] MCH 30.4 pG Normal 26.0-34.0 [facility] Comment on above: Performed By: #### S EQL1, SYPHTX, HIV12C, HBSAG, RUBIGG, AHCV1B ####[address] [phone] MCHC (RBC) [Mass/Vol] 34.6 g/dL Normal 30.5-36.0 [facility] Comment on above: Performed By: #### S EQL1, SYPHTX, HIV12C, HBSAG, RUBIGG, AHCV1B ####[address]mand[address] [phone] MCV (RBC) [Entitic vol] 88.0 fL Normal 80.0-100.0 [facility] Comment on above: Performed By: #### S EQL1, SYPHTX, HIV12C, HBSAG, RUBIGG, AHCV1B ####[place] [address] [phone] Platelet mean volume (Bld) [Entitic vol] 10.9 fL Normal 9.0-12.7 [facility] Comment on above: Performed By: #### S EQL1, SYPHTX, HIV12C, HBSAG, RUBIGG, AHCV1B ####[place] [address], [place] [phone] Platelets (Bld) [#/Vol] 183 10*3/uL Normal 150-400 [facility] Comment on above: Performed By: #### S EQL1, SYPHTX, HIV12C, HBSAG, RUBIGG, AHCV1B ####[place] [phone] RBC (Bld) [#/Vol] 4.24 10*6/uL Normal 3.90-5.20 [facility] Comment on above: Performed By: #### S EQL1, SYPHTX, HIV12C, HBSAG, RUBIGG, AHCV1B ####[place] [phone] WBC (Bld) [#/Vol] 8.15 10*3/uL Normal 3.70-11.00 [facility] Comment on above: Performed By: #### S EQL1, SYPHTX, HIV12C, HBSAG, RUBIGG, AHCV1B ####[place] [phone] [id number] Ag +HIV12 Abon 02-03 HIV 12 Ag/Ab Non-Reactive Normal Non Reactive [facility] Comment on above: Performed By: #### S EQL1, SYPHTX, HIV12C, HBSAG, RUBIGG, AHCV1B ####[place] [phone] HIV-1/2 Antibody Normal [facility] Comment on above: Result Comment: Test Not Indicated Negative No evidence of HIV-1 or HIV-2 infection. Should recent infection be suspected, repeat testing may be considered 2-3 weeks after this draw. HIV Information: [place] Rev. Code 3701.243(E): This information has been disclosed to you from confidential records protected from disclosure by state law. You shall make no further disclosure of this information without the specific, written, and informed release of the individual to whom it pertains or as otherwise permitted by state law. A general authorization for the release of medical or other information is not sufficient for the purpose of the release of HIV test results or diagnoses. Performed By: #### S EQL1, SYPHTX, HIV12C, HBSAG, RUBIGG, AHCV1B ####[place] [id number] [place], [place] [phone] Hep C Ab IA w/Confon 021 Hepatitis C Ab IA Negative Normal Negative [facility] Comment on above: Performed By: #### S EQL1, SYPHTX, HIV12C, HBSAG, RUBIGG, AHCV1B ####[address] [phone] Hepatitis B Surf. Agon 02-03 Hepatitis B Surf. Ag Negative Normal Negative [facility] Comment on above: Performed By: #### S EQL1, SYPHTX, HIV12C, HBSAG, RUBIGG, AHCV1B ####[address] [phone] Rubella IgG Antibodyon 02-03 Rubella IgG Ab 11.00 Index Value Normal [facility] Comment on above: Result Comment: Inde x values are interpreted as follows: Negative specimens <0.90 Equivocol specimens 0.90 to 0.99 Positive specimens >0.99 The magnitude of the measured result is not indicative of the amount of antibody present. Performed By: #### S EQL1, SYPHTX, HIV12C, HBSAG, RUBIGG, AHCV1B ####[address] [phone] Rubella IgG Ab, Qual Positive Critically abnormal Negative [facility] Comment on above: Result Comment: Samp le is considered positive for IgG antibodies to rubella virus. A positive result indicates previous exposure to Rubella virus or vaccination. Performed By: #### S EQL1, SYPHTX, HIV12C, HBSAG, RUBIGG, AHCV1B ####[address] [phone] Sequent Scrn First [facility] PATIE NTS ONLYon 02-03-2021 SE1 Age Rsk Dn Synd 1:770 Normal [facility] Comment on above: Performed By: #### S EQL1, SYPHTX, HIV12C, HBSAG, RUBIGG, AHCV1B ####[facility] [address] [place] [phone] SE1 Age Rsk Trsmy18 1:2400 Normal [facility] Comment on above: Performed By: #### S EQL1, SYPHTX, HIV12C, HBSAG, RUBIGG, AHCV1B ####[phone] SE1 hCG 1.98 MoM Normal [facility] Comment on above: Performed By: #### S EQL1, SYPHTX, HIV12C, HBSAG, RUBIGG, AHCV1B ####[place] [phone] SE1 Interp Final result pending second trimester sample Normal Final result pending second trimester sample [facility] Comment on above: Performed By: #### S EQL1, SYPHTX, HIV12C, HBSAG, RUBIGG, AHCV1B ####[phone] SE1 LIV A 0.61 MoM Normal [facility] Comment on above: Performed By: #### S EQL1, SYPHTX, HIV12C, HBSAG, RUBIGG, AHCV1B ####[phone] SE1 Scr Rsk Trsmy18 <1:60541 Normal [facility] Comment on above: Performed By: #### S EQL1, SYPHTX, HIV12C, HBSAG, RUBIGG, AHCV1B ####[phone] SE1 Scrn Rsk Dn Synd 1:440 Normal [facility] Comment on above: Performed By: #### S EQL1, SYPHTX, HIV12C, HBSAG, RUBIGG, AHCV1B ####[facility] [address]ClevelDaniel [place] [phone] Seq Scrn First Trim View results in Scanned Documents link when available. Normal [facility] Comment on above: Performed By: #### S EQL1, SYPHTX, HIV12C, HBSAG, RUBIGG, AHCV1B ####[address] [phone] SEQ Staff Review Reviewed by Germán Anaya MD, PhD ([id number]) Normal [facility] Comment on above: Performed By: #### S EQL1, SYPHTX, HIV12C, HBSAG, RUBIGG, AHCV1B ####[place] [phone] Syphilis Ttl w/Reflxon 02-03 Syphilis Interp Cannot exclude recent Treponemal infection if specimen collected within 7 to 10 days after appearance of suspect lesions or 2 to 3 weeks after an exposure. Clinical correlation is required. Normal [facility] Comment on above: Performed By: #### S EQL1, SYPHTX, HIV12C, HBSAG, RUBIGG, AHCV1B ####[place] [phone] Syphilis Screen Rslt Non-Reactive Normal Non Reactive [facility] Comment on above: Performed By: #### S EQL1, SYPHTX, HIV12C, HBSAG, RUBIGG, AHCV1B ####[place] [phone] Type and Scr,Prenatlon 02-03 ABO/RH(D) Negative Normal [facility] Comment on above: Performed By: #### T SPN ####[place] [phone] GC/Chlamydia Amplifon 2020 Chlamydia Amplif Negative [facility] Comment on above: Performed By: #### G CCT ####[place] [phone] GC Amplification Negative Normal [facility] Comment on above: Performed By: #### G CCT ####[place] [address] [address] [place] [phone] GC/Chlam Amp Source Cervix Normal [facility] Comment on above: Performed By: #### G CCT ####[place] [phone] Toxicology Screen,Uron 01-07 Amphetamines, Urine Negative Normal Negative [facility] Comment on above: Result Comment: Cuto ff threshold at 1000 ng/mL. Performed By: #### U TOX2 ####[place] [phone] Barbiturates, Urine Negative Normal Negative [facility] Comment on above: Result Comment: Cuto ff threshold at 200 ng/mL. Performed By: #### U TOX2 ####[place] [phone] Benzodiazepines, Ur Negative Normal Negative [facility] Comment on above: Result Comment: Cuto ff threshold at 200 ng/mL. Performed By: #### U TOX2 ####[place] [phone] Cannabinoids, Urine Negative Normal Negative [facility] Comment on above: Result Comment: Cuto ff threshold at 50 ng/mL. Performed By: #### U TOX2 ####[place] [address] [address] [place] [phone] Cocaine, Urine Negative Normal Negative [facility] Comment on above: Result Comment: Cuto ff threshold at 300 ng/mL. Performed By: #### U TOX2 ####[place] [address] [address] [place] [phone] Ethanol, Urine <11 Normal <11 [facility] Comment on above: Performed By: #### U TOX2 ####[place] [address] [place], [place] [phone] Opiates, Urine Negative Normal Negative [facility] Comment on above: Result Comment: Cuto ff threshold at 300 ng/mL. Performed By: #### U TOX2 ####[facility] [place], [place] [phone] Oxycodone, Urine Negative Normal Negative [facility] Comment on above: Result Comment: Cuto ff threshold at 100 ng/mL. Comment: Immunoassay screen only. Cross reactivity with other substances can occur with immunoassay screening. Detection of any drug(s) in this urine toxicology panel is presumptive only. These tests are for medical purposes only and should not be used for compliance monitoring, legal, or forensic use. Samples should be within normal physiological conditions (e.g. pH). This assay does not include adulteration/specimen validity testing. In clinical settings, confirmatory testing is at the practitioner's discretion [1]. If clinically indicated, confirmation by high specificity, quantitative methodology, which includes adulteration/specimen validity testing, may be requested on the same specimen through Client Services ([phone]) if contacted within 48 hours of initial testing. [1]Substance Abuse and Mental Health Services Administration (2012). Clinical Drug Testing in Primary Care Technical Assistance Publication Series 32. Department of Health and Human Services, [place], p.10. Performed By: #### U TOX2 ####[facility] [place], [place] [phone] Phencyclidine, Urine Negative Normal Negative [facility] Comment on above: Result Comment: Cuto ff threshold at 25 ng/mL. Performed By: #### U TOX2 ####[facility] [place], [place] [phone] [facility] 01-06-2021 CNNURSE Nurse Visit (OBGYWM) ---- BALA ANTOINENDA Ronald ([id number]) 1995 F Date Time Provider Department 01/06/21 11:00 [facility] During your visit today, we recorded the following information about you: Last Period 11/04/20 Destiny Syed RN 01/06/2021 11:48 AM Signed DISTANCE [facility] VISIT This Team Access Model visit is a phone encounter. It required patient-provider interaction for the medical decision making as documented below. Patient and have been attempting for the past 1-1/2 years.Patient is complaining of nausea and occasional vomiting in . Dietary considerations discussed . Vitamin B6 recommended. Advised patient to call/come in if she is unable to keep any food or fluids down in a 24-hour period. Patient states she has a history of anxiety that has never been diagnosed. She denies any depression. Patient's first cousin with Down syndrome. Patient desires nuchal ultrasound. Declines genetic carrier screening testing.TKRN Referring Provider: SELF [[id number]] Allergies As of Date: 01/06/2021 Noted Allergy Reaction SEASONAL ALLERGIES 03/23/2014 14 - Other: See Comments Date Reviewed: 01/06/2021 Reviewed by: Destiny Syed RN - Fully Assessed Primary Visit Diagnosis:Supervisi on of normal first , antepartum [Z34.00] Other Visit Diagnoses:Nausea and vomiting in [O21.9] History of anxiety [Z86.59] Family history of Down syndrome [Z82.79] Patient request for diagnostic testing [Z01.89] Prescriptions as of 01/06/2021 Sig: VITAMIN TABLET Take 1 tablet by mouth. 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 Follow-up and Disposition History Recorded Encounter Status:Closed by DESTINY SYED RN on 01/06/21 Normal [facility] Vital Signs Date Time Vital Sign Value Performing Clinician Jillian renee 01-26-2025 13:50-0400 Body height 170.18 cm No Primary Care Physician [facility] 01-26-2025 13:50-0400 Body mass index (BMI) [Ratio] 24 kg/m2 No Primary Care Physician [facility] 01-26-2025 13:50-0400 Body weight 69.51 kg No Primary Care Physician [facility] 01-26-2025 13:50-0400 Diastolic blood pressure 73 mm[Hg] No Primary Care Physician [facility] 01-26-2025 13:50-0400 Systolic blood pressure 128 mm[Hg] No Primary Care Physician [facility] 01-21-2025 16:26-0400 Body height 170.[address] Patito Arzola DO Work Phone: [facility] 01-21-2025 16:26-0400 Body mass index (BMI) [Ratio] 24.1 kg/m2 Dr. Patito Arzola DO Work Phone: [facility] 01-21-2025 16:26-0400 Body weight 69.[address] Patito Arzola DO Work Phone: [facility] 01-21-2025 16:25-0400 Body temperature 97.7 [degF] Dr. Patito Arzola DO Work Phone: [facility] 01-21-2025 16:25-0400 Heart rate 99 /min Dr. Patito Arzola DO Work Phone: [facility] 01-21-2025 16:25-0400 Respiratory rate 16 /min Dr. Patito Arzola DO Work Phone: [facility] 01-21-2025 16:25-0400 SaO2% (BldA) [Mass fraction] 98 % Dr. Patito Arzola DO Work Phone: [facility] 01-21-2025 16:24-0400 Diastolic blood pressure 74 mm[Hg] Dr. Patito Arzola DO Work Phone: [facility] 01-21-2025 16:24-0400 Systolic blood pressure 128 mm[Hg] Dr. Patito Arzola DO Work Phone: [facility] 01-21-2025 09:57-0400 Body height 170.[address] Patito Arzola DO Work Phone: [facility] 01-21-2025 09:50-0400 Body mass index (BMI) [Ratio] 24 kg/m2 Dr. Patito Arzola DO Work Phone: [facility] 01-21-2025 09:50-0400 Body weight 69.[address] Patito Arzola DO Work Phone: [facility] 01-21-2025 09:50-0400 Diastolic blood pressure 75 mm[Hg] Dr. Patito Arzola DO Work Phone: [facility] 01-21-2025 09:50-0400 Systolic blood pressure 111 mm[Hg] Dr. Patito Arzola DO Work Phone: [facility] 01-12-2025 09:09-0400 Body height 170.[address] Patito Arzola DO Work Phone: [facility] 01-12-2025 09:08-0400 Body mass index (BMI) [Ratio] 23.8 kg/m2 Dr. Patito Arzola DO Work Phone: [facility] 01-12-2025 09:08-0400 Body weight 69.[address] Patito Arzola DO Work Phone: [facility] 01-12-2025 09:08-0400 Diastolic blood pressure 80 mm[Hg] Dr. Patito Arzola DO Work Phone: [facility] 01-12-2025 09:08-0400 Systolic blood pressure 113 mm[Hg] Dr. Patito Arzola DO Work Phone: [facility] 12-31-2024 10:29-0400 Body height 170.18 cm No Primary Care Physician [facility] 12-31-2024 10:23-0400 Body mass index (BMI) [Ratio] 23.3 kg/m2 No Primary Care Physician [facility] 12-31-2024 10:23-0400 Body weight 67.64 kg No Primary Care Physician [facility] 12-31-2024 10:23-0400 Diastolic blood pressure 76 mm[Hg] No Primary Care Physician [facility] 12-31-2024 10:23-0400 Systolic blood pressure 114 mm[Hg] No Primary Care Physician [facility] 12-17-2024 09:11-0400 Body height 170.18 cm No Primary Care Physician [facility] 12-17-2024 09:09-0400 Body mass index (BMI) [Ratio] 22.7 kg/m2 No Primary Care Physician [facility] 12-17-2024 09:09-0400 Body weight 65.82 kg No Primary Care Physician [facility] 12-17-2024 09:09-0400 Diastolic blood pressure 75 mm[Hg] No Primary Care Physician [facility] 12-17-2024 09:09-0400 Systolic blood pressure 116 mm[Hg] No Primary Care Physician [facility] 12-01-2024 08:58-0400 Body mass index (BMI) [Ratio] 22.3 kg/m2 No Primary Care Physician [facility] 12-01-2024 08:58-0400 Body weight 64.58 kg No Primary Care Physician [facility] 12-01-2024 08:58-0400 Diastolic blood pressure 71 mm[Hg] No Primary Care Physician [facility] 12-01-2024 08:58-0400 Systolic blood pressure 103 mm[Hg] No Primary Care Physician [facility] 11-19-2024 08:49-0400 Body height 170.18 cm No Primary Care Physician [facility] 11-19-2024 08:49-0400 Body mass index (BMI) [Ratio] 21.8 kg/m2 No Primary Care Physician [facility] 11-19-2024 08:49-0400 Body weight 63.27 kg No Primary Care Physician [facility] 11-19-2024 08:49-0400 Diastolic blood pressure 77 mm[Hg] No Primary Care Physician [facility] 11-19-2024 08:49-0400 Systolic blood pressure 114 mm[Hg] No Primary Care Physician [facility] 11-05-2024 09:50-0400 Body mass index (BMI) [Ratio] 21.5 kg/m2 No Primary Care Physician [facility] 11-05-2024 09:50-0400 Body weight 62.36 kg No Primary Care Physician [facility] 11-05-2024 09:50-0400 Diastolic blood pressure 74 mm[Hg] No Primary Care Physician [facility] 11-05-2024 09:50-0400 Systolic blood pressure 108 mm[Hg] No Primary Care Physician [facility] 10-08-2024 08:37-0500 Body mass index (BMI) [Ratio] 20.5 kg/m2 No Primary Care Physician [facility] 10-08-2024 08:37-0500 Body weight 59.42 kg No Primary Care Physician [facility] 10-08-2024 08:37-0500 Diastolic blood pressure 73 mm[Hg] No Primary Care Physician [facility] 10-08-2024 08:37-0500 Systolic blood pressure 109 mm[Hg] No Primary Care Physician [facility] 09-10-2024 07:30-0500 Body mass index (BMI) [Ratio] 19.4 kg/m2 No Primary Care Physician [facility] 09-10-2024 07:30-0500 Body weight 56.24 kg No Primary Care Physician [facility] 09-10-2024 07:30-0500 Diastolic blood pressure 68 mm[Hg] No Primary Care Physician [facility] 09-10-2024 07:30-0500 Systolic blood pressure 118 mm[Hg] No Primary Care Physician [facility] 08-12-2024 14:20-0500 Body mass index (BMI) [Ratio] 18.2 kg/m2 No Primary Care Physician [facility] 08-12-2024 14:20-0500 Body weight 52.84 kg No Primary Care Physician [facility] 08-12-2024 14:20-0500 Diastolic blood pressure 72 mm[Hg] No Primary Care Physician [facility] 08-12-2024 14:20-0500 Systolic blood pressure 108 mm[Hg] No Primary Care Physician [facility] Encounters Encounter Date Encounter Type Care Provider Facility Start: 02-09-2025 ambulatory Jena Walsh lity:[facility] Start: 01-26-[address] Patito Arzola DO -[facility] Start: 01-26-2025 ambulatory Patito Thibodeauxty:[facility] Start: 01-26-2025 End: 01-26-[address] Patito Arzola DO -[facility] Work Phone: Start: 01-26-2025 End: 01-26-2025 ambulatory No Primary Care Physician [facility] Work Phone: Start: 01-25-2025 ambulatory Jena Walsh lity:[facility] Start: 01-25-2025 Non-patient / Non-visit Dr. Jena Campos MD -[facility] Start: 01-21-2025 End: 01-21-[address] Patito Arzola DO Work Phone: [facility] Work Phone: Start: 01-21-2025 End: 01-21-[address] Jena Campos MD -[facility] Work Phone: Start: 01-21-2025 End: 01-21-2025 Patient encounter procedure Dahlia Spring CNM -[facility] Start: 01-21-2025 End: 01-21-[address] Patito Arzola DO Work Phone: [facility] Work Phone: Start: 01-12-2025 End: 01-12-[address] Patito Arzola DO Work Phone: [facility] Work Phone: Start: 01-12-2025 End: 01-12-[address] Patito Arzola DO -Laboratory Specimen Work Phone: Start: 01-12-2025 End: 01-12-[address] Patito Arzola DO -[facility] Work Phone: Start: 01-12-2025 End: 01-12-[address] Patito Arzola DO Work Phone: [facility] Work Phone: Start: 01-12-2025 End: 01-12-2025 ambulatory Patito Arzola Facility:[facility] Start: 01-02-2025 End: 01-02-2025 ambulatory No Primary Care Physician [facility] Work Phone: Start: 01-02-2025 End: 01-02-2025 Patient encounter procedure Dahlia Spring CNM -[facility] Work Phone: Start: 01-02-2025 End: 01-02-2025 ambulatory No Primary Care Physician Facility:[facility] Start: 12-31-2024 End: 12-31-2024 Patient encounter procedure Dahlia Spring CNM -[facility] Start: 12-31-2024 End: 12-31-2024 ambulatory No Primary Care Physician [facility] Work Phone: Start: 12-26-2024 End: 12-26-2024 ambulatory No Primary Care Physician [facility] Work Phone: Start: 12-26-2024 End: 12-26-[address] Jena Campos MD -[facility] Start: 12-26-2024 End: 12-26-2024 ambulatory Jena Campos Facility:[facility] Start: 12-17-2024 End: 12-17-2024 Patient encounter procedure Dahlia Spring CNM -[facility] Start: 12-17-2024 End: 12-17-2024 ambulatory No Primary Care Physician [facility] Work Phone: Start: 12-01-2024 End: 12-01-[address] Patito Arzola DO -[facility] Work Phone: Start: 12-01-2024 End: 12-01-2024 ambulatory No Primary Care Physician Facility:[facility] Start: 11-25-2024 End: 11-25-2024 Patient encounter procedure Dahlia Spring CNM -Laboratory Work Phone: Start: 11-25-2024 End: 11-25-2024 ambulatory Dahlia Spring Facility:[facility] Start: 11-19-2024 End: 11-19-[address] Jena Campos MD -[facility] Work Phone: Start: 11-19-2024 End: 11-19-2024 ambulatory No Primary Care Physician [facility] Work Phone: Start: 11-19-2024 End: 11-19-2024 ambulatory No Primary Care Physician Facility:[facility] Start: 11-05-2024 End: 11-05-2024 Patient encounter procedure Dahlia Spring CNM -[facility] Start: 11-05-2024 End: 11-05-2024 ambulatory No Primary Care Physician Facility:[facility] Start: 10-08-2024 End: 10-08-2024 Patient encounter procedure Dahlia Spring CNM -[facility] Start: 10-08-2024 End: 10-08-2024 ambulatory No Primary Care Physician Facility:[facility] Start: 09-24-2024 End: 09-24-[address] Patito Arzola DO -[facility] Work Phone: Start: 09-24-2024 End: 09-24-2024 ambulatory Patito Arzola Facility:[facility] Start: 09-10-2024 End: 09-10-2024 Patient encounter procedure Dahlia Spring CNM -[facility] Start: 09-10-2024 End: 09-10-2024 ambulatory No Primary Care Physician Facility:[facility] Start: 08-12-2024 End: 08-12-[address] Patito Arzola DO -[facility] Work Phone: Start: 08-12-2024 End: 08-12-2024 ambulatory Patito Arzola Facility:[facility] Start: 07-07-2024 End: 07-07-2024 ambulatory Dahlia Spring Facility:[facility] Start: 07-07-2024 End: 07-07-2024 ambulatory Dahlia Spring Facility:[facility] Start: 12-06-2021 End: 12-06-2021 Subsequent hospital visit by physician [facility] Work Phone: Radiology Comment on above: Mass of upper outer quadrant of right breast [N63.11] Start: 11-28-2021 Telephone encounter Caty galaviz APRN.CNM Work Phone: OB/Gynecology Comment on above: Patient Question Procedures Date Procedure Procedure Detail Performing Clinician Start: 01-21-2025 Ultrasonography for antepartum monitoring of fetus No Primary Care Physician Start: 01-12-2025 Beta-hemolytic Strep tococcus culture Dr. Patito Arzola DO Work Phone: Start: 01-02-2025 Ultrasound scan for growth No Primary Care Physician Start: 11-19-2024 Serologic test for syphilis No Primary Care Physician Start: 09-24-2024 Ultrasonography in f irst trimester No Primary Care Physician Start: 12-06-2021 Us breast uni real t lencho with image limited Caty Jaeger APRN.CNM Work Phone: Start: 05-25-2021 Antibody screen Comment on above: Performed By: #### T SPN ####[address] [phone] Start: 02-03-2021 Antibody screen Comment on above: Performed By: #### T SPN ####[facility] [place] [address] [phone] Start: 05-23-2018 Adult depression scr eening assessment Caty Mil GUILLEN Work Phone: Plan of Treatment Date Care Activity Detail Author Start: 01-26-2025 CBC W Auto Differential panel - Blood [facility] Start: 01-21-2025 Nonstress test [facility] Start: 01-21-2025 Obstetric monitoring [facility] Start: 01-21-2025 Vital signs measurements [facility] Start: 01-21-2025 [facility] Start: 01-21-2025 Ultrasonography for antepartum monitoring of fetus [facility] Start: 01-21-2025 Patient discharge [facility] Start: 01-12-2025 Beta-hemolytic Streptococcus culture Group B Streptococcus Culture [facility] Start: 01-12-2025 Streptococcus agalactiae [Presence] in Unspecified specimen by Organism specific culture [facility] Start: 09-21-2024 PAP TESTING PAP TESTING [facility] Start: 04-06-2022 Influenza vaccination INFLUENZA (Season Ended) [facility] Start: 05-23-2019 Adult depression screening assessment DEPRESSION SCREENING [facility] Start: 2010 PEDS TO ADULT TRANSITION ANNUAL ASSESSMENT PEDS TO ADULT TRANSITION ANNUAL ASSESSMENT [facility] Start: 2008 PEDS TO ADULT TRANSITION INITIAL DISCUSSION PEDS TO ADULT TRANSITION INITIAL DISCUSSION [facility] Start: 2007 HPV VACCINE (1 - 2-dose series) HPV VACCINE (1 - 2-dose series) [facility] Start: 2007 Urine microalbumin profile DTAP,TDAP,TD (5 - Tdap) [facility] Start: 2001 COVID-19 VACCINE (1) COVID-19 VACCINE (1) [facility] CBC W Auto Different ial panel - Blood [facility] Erythrocyte mean corpuscular volume determination [facility] Hematocrit [Volume Fraction] of Blood [facility] Hemoglobin [Mass/vol ume] in Blood [facility] Leukocytes [#/volume ] in Blood [facility] Mean corpuscular hemoglobin concentration determination [facility] Mean corpuscular hemoglobin determination [facility] Neutrophil count [facility] Neutrophil percent differential count [facility] Patient Education Kick Counts OB Triage: Return to Hospital or Notify Physician if you Experience: [facility] Work Phone: Patient referral [facility] Work Phone: Platelets [#/volume] in Blood [facility] Red blood cell count [facility] Red cell distributio n width determination [facility] Streptococcus agalac tiae [Presence] in Unspecified specimen by Organism specific culture [facility] Ultrasound scan for growth [facility] Ultrasound scan for growth [facility] Immunizations Immunization Date Immunization Notes Care Provider Fa jennifer 05-25-2021 RHO(D) immune globul in- IV or IM Caty Jaeger APRN.CNM Work Phone: [facility] 03-22-1998 diphtheria, tetanus toxoids and acellular pertussis vaccine Caty Jaeger APRN.CNM Work Phone: [facility] Work Phone: 03-22-1998 poliovirus vaccine, inactivated Caty Jaeger APRN.CNM Work Phone: [facility] Work Phone: 05-26-1997 DTP-Haemophilus influenzae type b conjugate vaccine Caty Jaeger APRN.CNM Work Phone: [facility] Work Phone: 05-26-1997 measles, mumps and rubella virus vaccine Caty Jaeger APRN.CNM Work Phone: [facility] Work Phone: 1996 DTP-Haemophilus influenzae type b conjugate vaccine Caty Jaeger APRN.CNM Work Phone: [facility] Work Phone: 1996 poliovirus vaccine, inactivated Caty Jaeger PERSONNEL INTERVIEWER.CNM Work Phone: [facility] Work Phone: 1996 DTP-Haemophilus influenzae type b conjugate vaccine Caty Jaeger APRN.CNM Work Phone: [facility] Work Phone: 1996 poliovirus vaccine, inactivated Caty Jaeger PERSONNEL INTERVIEWER.[facility] Work Phone: [facility] Work Phone: Payers Date Payer Category Payer Self-pay 2024 Unknown [id number] Unknown [id number] 2.16.8 [id number] Unknown [id number] 2.16.8 [id number] Unknown [id number] 2.16.8 [id number] Unknown [id number] 2.16.8 [id number] Unknown [id number] 2.16.8 40.1.449969.3.579.2.462 Unknown [id number] 2.16.8 40.1.445448.3.579.2.462 Unknown [id number] 2.16.8 40.1.154318.3.579.2.462 Unknown [id number] 2.16.8 40.1.893264.3.579.2.462 Unknown [id number] 2.16.8 40.1.138962.3.579.2.462 Unknown [id number] 2.16.8 40.1.762355.3.579.2.462 Unknown [id number] 2.16.8 40.1.318292.3.579.2.462 Unknown [id number] 2.16.8 40.1.156718.3.579.2.462 Unknown [id number] 2.16.8 40.1.527086.3.579.2.462 Unknown [id number] 2.16.8 40.1.096508.3.579.2.462 Unknown [id number] 2.16.8 40.1.665657.3.579.2.462 Unknown [id number] 2.16.8 40.1.991461.3.579.2.462 Unknown [id number] 2.16.8 40.1.432951.3.579.2.462 Unknown [id number] 2.16.8 40.1.281291.3.579.2.462 Unknown [id number] 2.16.8 40.1.477088.3.579.2.462 Unknown [id number] 2.16.8 40.1.421683.3.579.2.462 Unknown [id number] 2.16.8 40.1.303599.3.579.2.462 Unknown [id number] 2.16.8 40.1.504608.3.579.2.462 Unknown [id number] 2.16.8 [id number] Social History Date Type Detail Facility Start: 12-16-2018 End: 06-27-2024 Tobacco smoking status NHIS Ex-smoker [facility] End: 01-06-2018 History of tobacco use Current smoker [facility] End: 01-06-2018 History of tobacco use Cigarette Smoker [facility] Start: 12-16-2018 Tobacco use and exposure Smokeless tobacco non-user [facility] Start: 09-21-2021 Alcohol intake Ex-drinker (finding) [facility] Start: 12-16-2018 History SDOH Alcohol Comment occasional [facility] Start: 01-06-2021 Education 8 [facility] Start: 1995 Sex Assigned At Not on file [facility] Start: 11-24-2024 Sex Female (finding) [facility] Start: 1995 Sex Assigned At Female [facility] Gender Identity Identifies as fe male gender (finding) [facility] Sexual Orientation Heterosexual (finding) [facility] Clinical Notes 01-07-2021 to 01-26-2025 Note Date & Type Note Facility 01-26-2025 Progress note [facility] 01-26-2025 Progress note Note Date/Time January 26, 2025 2:50pm [facility] [address], [address] [place] [address] OFFICE VISIT Date of Service: 01/26/25 MR#: [id number] Acct: [id number] Name: KATELYN ANTOINE Rep #: [id number] : 1995 Provider: Dr. Floridalma Azrola DO Age/Sex: 29/F Location: [facility] Status: Signed Intake Vital Signs 01/21/25 16:26 01/26/25 13:50 01/26/25 13:50 Height 5 ft 7 in 5 ft 7 in 5 ft 7 in Weight: 153 lb 4 oz BMI 24.0 BP 128/73 H Intake Visit Reasons: 38w, Amniotic fluid check per Power Screwdriver Operator Required: No Is patient in pain?: No Allergies No Known Allergies Allergy (Verified 01/26/25 13:50) Medications ?Medication ?Instructions ?Recorded ?Confirmed ?Type magnesium 200 mg tablet 330 mg PO QDAY 06/27/2401/05 History vitamins no.163-iron 1 tab PO DAILY 06/27/24 01/26/25 History bis-gly 20 mg-folate no.10 1 mg tablet (PNV Tabs 20-1) iron supplement 1 tab PO DAILY 12/31/2401/05 History Last Menstrual Period: 05/05/24 Zika: Zika virus screening: Negative : No PFSH PFSH Medical History Seasonal allergies care following vaginal delivery 40 weeks gestation of Anemia IBS (irritable bowel syndrome) Anxiety Social History adopted: No household members: spouse and children number of children: 1 current occupational status: unemployed current occupation: [employer] pets and animals: Yes pets and animals: dog(s) history of recent travel: Yes ([place]) out of state: Yes out of country: No sexually active: Yes Smoking Status: Former smoker how long ago did patient quit smokin years alcohol intake: current alcohol intake frequency: holidays/special occasions only details: Not while substance use type: does not use well-balanced diet: daily or most days caffeine: Yes Type: coffee Number of servings: 1 eating out: 1-3 times/week during the past year weight has: remained stable what type of physical activity do you participate in: none conrad/hinduism: Adventism seatbelt use: sometimes do you feel safe at home: Yes additional social history: - [place]- 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 Date Name GA/Weeks Outcome Route Bth Weight Infant Gen Labor Lgth Anesthesia Del Locatn Provider FOB 08/12/21 Mei 40 live - full term 6#12oz Female 12hr ep idural [facility] Deepali Culp [facility] Delivery Date: 08/12/21 Last Updated by: Fide Landis no complications HPI 38w, Amniotic fluid check per SM Details: KATELYN ANTOINE is a 29 year old who presents for routine OB visit. OB Visit EMIR Calculator Estimated Delivery Date Method Current WG Current Estimate 02/09/25 Ultrasound #1 38w 0d Other Estimates 02/09/25 LMP (Certain) 38w 0d Expected Delivery Route/Plan Labor Preferences- CB/BF classes: [] labor support person: [] labor intervention preferences: [] pain management options preferred: [] cut cord/dad catch: [] : [] PP control planned: [] discussed possible routes of delivery and associated risks: [] special requests: [] Specific Issue/Plans Covid status: [] Flu vaccine: [] Tdap vaccine: [] Rhogam: [] LARC form signed: [] Problem list reviewed and updated with the most current plan of care details and appropriate orders placed. Relevant counseling for the gestational age provided. Continue routine care and follow up unless otherwise noted in visit notes/problem list details Initial Weight: 117 lb Date -?-?-?-?-?-?-?-?-?-?-?-?- EGA Weight BP Urine Prot -?-?-?-?-?-?-?-?-?-?-?-?- Glucose FHR FuHt Pres Dilation -?-?-?-?-?-?-?-?-?-?-?-?- Effaced St Visit Note 07/07/24 -?-?-?-?-?-?-?-?-?-?-?-?- 9w 0d 117 lb (+0 oz) 131/81 -?-?-?-?-?-?-?-?-?-?-?-?- 175 -?-?-?-?-?-?-?-?-?-?-?-?- KW- CRL cons wit h dates. declines NIPT. would like [facility] appts. 08/12/24 -?-?-?-?-?-?-?-?-?-?-?-?- 14w 1d 116 lb 8 oz (-8 oz) 108/72 Negative -?-?-?-?-?-?-?-?-?-?-?-?- Negative 170 -?-?-?-?-?--?-?-?-?-?-?-?- JV- no complaint s today. bedside us shows 14 week IUP. [facility] anatomy scan. 09/10/24 -?-?-?-?-?-?-?-?-?-?-?-?- 18w 2d 124 lb (+7 lb) 118/68 Negative -?-?-?-?-?-?-?-?-?-?-?-?- Negative 160 -?-?-?-?-?-?-?-?-?-?-?-?- KW- no vb/crampi ng. + flutters. has anatomy scan in 2 weeks. 10/08/24 -?-?-?-?-?-?-?-?-?-?-?-?- 22w 2d 131 lb (+14 lb) 109/73 Negative -?-?-?-?-?-?-?-?-?-?-?-?- Negative 150 22 -?-?-?-?-?-?-?-?-?-?-?-?- KW- no vb/lof/ct x. good fm. anatomy reviewed. Having a BOY! feeling good. 11/05/24 -?-?-?-?-?-?-?-?-?-?-?-?- 26w 2d 137 lb 8 oz (+20 lb 8 oz) 108/74 Negative -?-?-?-?-?-?-?-?-?-?-?-?- Negative 135 25 -?-?-?-?-?-?-?-?-?-?-?-?- kw-no vb/lof/ctx . good fm kw-no vb/lof/ctx. good fm. n ext appt in [facility] for glucose draw 11/19/24 -?-?-?-?-?-?-?-?-?-?-?-?- 28w 2d 139 lb 8 oz (+22 lb 8 oz) 114/77 Negative -?-?-?-?-?-?-?-?-?-?-?-?- Negative 140 28 -?-?-?-?-?-?-?-?-?-?-?-?- SM- no vb lof go od fm no reuglar ctx cbc gct today declined rhogam is negative 12/01/24 -?-?-?-?-?-?-?-?-?-?-?-?- 30w 0d 142 lb 6 oz (+25 lb 6 oz) 103/71 Negative -?-?-?-?-?-?-?-?-?-?-?-?- Negative 144 30 -?-?-?-?-?-?-?-?-?-?-?-?- JV- passed 3 hr. no complaints today. LArc signed. rpt plts next visit. 12/17/24 -?-?-?-?-?-?-?-?-?-?-?-?- 32w 2d 145 lb 2 oz (+28 lb 2 oz) 116/75 Negative -?-?-?-?-?-?-?-?-?-?-?-?- Negative 155 31 -?-?-?-?-?-?-?-?-?-?-?-?- KW- no vb/lof/ct x. good fm. will get repeat labs within next week. 12/31/24 -?-?-?-?-?-?-?-?-?-?-?-?- 34w 2d 149 lb 2 oz (+32 lb 2 oz) 114/76 Negative -?-?-?-?-?-?-?-?-?-?-?-?- Negative 140 32 -?-?-?-?-?-?-?-?-?-?-?-?- KW- no vb/lof/ct x. good fm. GBS next visit. growth US ordered for size less than dates. 01/12/25 -?-?-?-?-?-?-?-?-?-?-?-?- 36w 0d 152 lb 6 oz (+35 lb 6 oz) 113/80 Negative -?-?-?-?-?-?-?-?-?-?-?-?- Negative 165 35.5 Cephalic 0 -?-?-?-?-?-?-?-?-?-?-?-?- JV- gbs collecte d. needs plts repeat at 38 weeks. 01/21/25 -?-?-?-?-?-?-?-?-?-?-?-?- 37w 2d 153 lb 6 oz (+36 lb 6 oz) 111/75 Negative -?-?-?-?-?-?-?-?-?-?-?-?- Negative 160 34 -?-?-?-?-?-?-?-?-?-?-?-?- KW- no vb/lof/ct x. good fm. no concerns today. growth US ordered for S<D KW- no vb/lof/ctx. good fm. no concerns today. growth US ordered for S<D. last growth was 01/02. 01/26/25 -?-?-?-?-?-?-?-?-?-?-?-?- 38w 0d 153 lb 4 oz (+36 lb 4 oz) 128/73 -?-?-?-?-?-?-?-?-?-?-?-?- 156 33 Cephalic 3 -?-?-?-?-?-?-?-?-?-?-?-?- 70 -2 JV- hospti al would not do growth last week JV- hosptial would not do gr owth last week. bedside scan shows <2.5% growth and fluid of 6.5. planning IOL tomorrow am. EFW 5 lbs 15 oz. ACOG First Trimester First Trimester: Discussed Second Trimester Second Trimester: Signs and Symptoms of Labor, Selecting a care provider, Reproductive Life Planning & Contreception, Care Planning, Depression/Anxiety and Intimate Partner Violence; Discussed Tobacco Cessation Third Trimester Third Trimester: Pain Management Plans, Labor support person(s), Immediate Larc, Signs and Symptoms of Preeclampsia, Feeding No , [place] Education and Family Medical Leave or Disability Forms Coding Level of Care Code OB Routine Diagnoses Uterine size date discrepancy O26.849 Thrombocytopenia affecting O99.119; D69.6 Abnormal glucose affecting O99.810 Rh negative, antepartum O26.899; Z67.91 Supervision of high-risk O09.90 38 weeks gestation of Z3A.38 Weeks of gestation: 38 weeks IUGR (intrauterine growth restriction) Assessment and Plan Assessment and Plan (1) Uterine size date discrepancy : Status: Acute Comment: ultrasound 01/02- 29% AC 21. normal DB (2) Thrombocytopenia affecting : Status: Acute Comment: repeat at 32 [id number] (3) Abnormal glucose affecting : Status: Acute Comment: passed 3 hour (4) Rh negative, antepartum: Status: Acute Comment: Rhogam at 28 weeks and PRN, O- patient to bring paper to scan in at next visit. (5) Supervision of high-risk : Status: Acute Comment: PRR, , EMIR 02/09/25, boy PC Mei, Siobhan. nl anatomy (6) : Status: Acute Qualifiers: Weeks of gestation: 38 weeks Qualified Code(s): Z3A.38 - 38 weeks gestation of Comment: declined NIPT & ntd, Carrier testing (7) IUGR (intrauterine growth restriction): Status: Acute Comment: <2.5% on growth scan in our office and DB of 6.5 at 38 weeks. IOl set up for 01/27/25 Orders: Orders POC Urinalysis 2 Dip (Clinic) Today 01/26/25 1450 <Electronically signed by Patito Jj DO> Date _ Patito Arzola DO [facility] Signature: Date (if applicable) CC: ~ [facility] Work Phone: [phone] [facility] [address] [place] [address], [address] [place] [address] OFFICE VISIT Date of Service: 01/21/25 MR#: [id number] Acct: [id number] Name: KATELYN ANTOINE Rep #: [id number] : 1995 Provider: ZEFREINO Spring Age/Sex: 29/F Location: [facility] [place] Status: Signed Intake Vital Signs 12/17/24 09:11 01/12/25 09:09 01/21/25 09:50 01/21/25 09:57 Height 5 ft 7 in 5 ft 7 in 5 ft 7 in 5 ft 7 in Weight: 153 lb 6 oz BMI 24.0 BP 111/75 Intake Visit Reasons: 37 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: No Is patient in pain?: No Allergies No Known Allergies Allergy (Verified 01/21/25 09:50) Medications ?Medication ?Instructions ?Recorded ?Confirmed ?Type acetaminophen 500 mg tablet 1,000 mg (2 x 500 mg) PO Q 6H PRN 08/14/21 01/21/25 Rx PRN Pain 1-10 Or Fever #0 tabs magnesium 200 mg tablet 330 mg PO QDAY 06/27/2401/04 History vitamins no.163-iron tab PO DAILY 06/27/24 History bis-gly 20 mg-folate no.10 1 mg tablet (PNV Tabs 20-1) pyridoxine (vitamin B6) 100 mg 100 mg PO QDAY 06/27/24 01/21/25 History tablet ondansetron 4 mg disintegrating 4 mg PO Q6H PRN nausea and 07/07/24 01/21/25 Rx tablet vomiting #90 tabs iron supplement PO 12/31/24 01/21/25 History Last Menstrual Period: 05/05/24 Do you think of yourself as: straight/heterosexual Current gender identity: female : No PFSH PFSH Medical History Seasonal allergies care following vaginal delivery 40 weeks gestation of Anemia IBS (irritable bowel syndrome) Anxiety Social History adopted: No household members: spouse and children number of children: 1 current occupational status: unemployed current occupation: [employer] pets and animals: Yes pets and animals: dog(s) history of recent travel: Yes ([place]) out of state: Yes out of country: No sexually active: Yes do you think of yourself as: straight/heterosexual current gender identity: female Smoking Status: Former smoker how long ago did patient quit smokin years alcohol intake: current alcohol intake frequency: holidays/special occasions only details: Not while substance use type: does not use well-balanced diet: daily or most days caffeine: Yes Type: coffee Number of servings: 1 eating out: 1-3 times/week during the past year weight has: remained stable what type of physical activity do you participate in: none conrad/hinduism: Adventism seatbelt use: sometimes do you feel safe at home: Yes additional social history: - [place]- 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 Date Name GA/Weeks Outcome Route Bth Weight Infant Gen Labor Lgth Anesthesia Del Locatn Provider FOB 08/12/21 Mei 40 live - full term 6#12oz Female 12hr ep idural [facility] Deepali Culp [facility] Delivery Date: 08/12/21 Last Updated by: Fide Landis no complications HPI 37 wk ob Details: KATELYN ANTOINE is a 29 year old who presents for routine OB visit. OB Visit EMIR Calculator Estimated Delivery Date Method Current WG Current Estimate 02/09/25 Ultrasound #1 37w 2d Other Estimates 02/09/25 LMP (Certain) 37w 2d Expected Delivery Route/Plan Labor Preferences- CB/BF classes: [] labor support person: [] labor intervention preferences: [] pain management options preferred: [] cut cord/dad catch: [] : [] PP control planned: [] discussed possible routes of delivery and associated risks: [] special requests: [] Specific Issue/Plans Covid status: [] Flu vaccine: [] Tdap vaccine: [] Rhogam: [] LARC form signed: [] Problem list reviewed and updated with the most current plan of care details and appropriate ordersplaced. Relevant counseling for the gestational age provided. Continue routine care and follow up unless otherwise noted in visit notes/problem list details Initial Weight: 117 lb Date -?-?-?-?-?-?-?-?-?-?-?-?- EGA Weight BP Urine Prot -?-?-?-?-?-?-?-?-?-?-?-?- Glucose FHR FuHt Pres Dilation -?-?-?-?-?-?-?-?-?-?-?-?- Effaced St Visit Note 07/07/24 -?-?-?-?-?-?-?-?-?-?-?-?- 9w 0d 117 lb (+0 oz) 131/81 -?-?-?-?-?-?-?-?-?-?-?-?- 175 -?--?-?-?-?-?-?-?-?-?-?-?- KW- CRL cons wit h dates. declines NIPT. would like Sd hope appts. 08/12/24 -?-?-?-?-?-?-?-?-?-?-?-?- 14w 1d 116 lb 8 oz (-8 oz) 108/72 Negative -?-?-?-?-?-?-?-?-?-?-?-?- Negative 170 -?-?-?-?-?-?-?-?-?-?-?-?- JV- no complaint s today. bedside us shows 14 week IUP. [facility] anatomy scan. 09/10/24 -?-?-?-?-?-?-?-?-?-?-?-?- 18w 2d 124 lb (+7 lb) 118/68 Negative -?-?-?-?-?-?-?-?-?-?-?-?- Negative 160 -?-?-?-?-?-?-?-?-?-?-?-?- KW- no vb/crampi ng. + flutters. has anatomy scan in 2 weeks. 10/08/24 -?-?-?-?-?-?-?-?-?-?-?-?- 22w 2d 131 lb (+14 lb) 109/73 Negative -?-?-?-?-?-?-?-?-?-?-?-?- Negative 150 22 -?-?-?-?-?-?-?-?-?-?-?-?- KW- no vb/lof/ct x. good fm. anatomy reviewed. Having a BOY! feeling good. 11/05/24 -?-?-?-?-?-?-?-?-?-?-?-?- 26w 2d 137 lb 8 oz (+20 lb 8 oz) 108/74 Negative -?-?-?-?-?-?-?--?-?-?-?-?- Negative 135 25 -?-?-?-?-?-?-?-?-?-?-?-?- kw-no vb/lof/ctx . good fm kw-no vb/lof/ctx. good fm. n ext appt in [facility] for glucose draw 11/19/24 -?-?-?-?-?-?-?-?-?-?-?-?- 28w 2d 139 lb 8 oz (+22 lb 8 oz) 114/77 Negative -?-?-?-?-?-?-?-?-?-?-?-?- Negative 140 28 -?-?-?-?-?-?-?-?-?-?-?-?- SM- no vb lof go od fm no reuglar ctx cbc gct today declined rhogam is negative 12/01/24 -?-?-?-?-?-?-?-?-?-?-?-?- 30w 0d 142 lb 6 oz (+25 lb 6 oz) 103/71 Negative -?-?-?-?-?-?-?-?-?-?-?-?- Negative 144 30 -?-?-?-?-?-?-?-?-?-?-?-?- JV- passed 3 hr. no complaints today. LArc signed. rpt plts next visit. 12/17/24 -?-?-?-?-?-?-?-?-?-?-?-?- 32w 2d 145 lb 2 oz (+28 lb 2 oz) 116/75 Negative -?-?-?-?-?-?-?-?-?-?-?-?- Negative 155 31 -?-?-?-?-?-?-?-?-?-?-?-?- KW- no vb/lof/ct x. good fm. will get repeat labs within next week. 12/31/24 -?-?-?-?-?-?-?-?-?-?-?-?- 34w 2d 149 lb 2 oz (+32 lb 2 oz) 114/76 Negative -?-?-?-?-?-?-?-?-?-?-?-?- Negative 140 32 -?-?-?-?-?-?-?--?-?-?-?-?- KW- no vb/lof/ct x. good fm. GBS next visit. growth US ordered for size less than dates. 01/12/25 -?-?-?-?-?-?-?-?-?-?-?-?- 36w 0d 152 lb 6 oz (+35 lb 6 oz) 113/80 Negative -?-?-?-?-?-?-?-?-?-?-?-?- Negative 165 35.5 Cephalic 0 -?-?-?-?-?-?-?-?-?-?-?-?- JV- gbs collecte d. needs plts repeat at 38 weeks. 01/21/25 -?-?-?-?-?-?-?-?-?-?-?-?- 37w 2d 153 lb 6 oz (+36 lb 6 oz) 111/75 Negative -?-?-?-?-?-?-?-?-?-?-?-?- Negative 160 34 -?-?-?-?-?-?-?-?-?-?-?-?- KW- no vb/lof/ct x. good fm. no concerns today. growth US ordered for S KW- no vb/lof/ctx. good fm. no concerns today. growth US ordered for Sgrowth was 01/02. ACOG First Trimester First Trimester: Discussed Second Trimester Second Trimester: Signs and Symptoms of Labor, Selecting a care provider, Reproductive Life Planning & Contreception, Care Planning, Depression/Anxiety and Intimate Partner Violence; Discussed Tobacco Cessation Third Trimester Third Trimester: Pain Management Plans, Labor support person(s), Immediate Larc, Signs and Symptoms of Preeclampsia, Feeding No , Education and Family Medical Leave or Disability Forms ROS Const Reports system reviewed and no additional complaints, except as documented Eyes Reports system reviewed and no additional complaints, except as documented ENT Reports system reviewed and no additional complaints, except as documented Card Reports system reviewed and no additional complaints, except as documented Resp Reports system reviewed and no additional complaints, except as documented GI Reports system reviewed and no additional complaints, except as documented, Denies nausea and Denies vomiting Reports system reviewed and no additional complaints, except as documented Musc Reports system reviewed and no additional complaints, except as documented Skin/Breast Reports system reviewed and no additional complaints, except as documented Neuro Yes system reviewed and no additional complaints, except as documented Psych Reports system reviewed and no additional complaints, except as documented Endo Reports system reviewed and no additional complaints, except as documented Duran/Lymph Reports system reviewed and no additional complaints, except as documented Aller/Immun Reports system reviewed and no additional complaints, except as documented Exam Const General: cooperative, healthy appearing and no acute distress Orientation: alert, awake and oriented x3 Neck Neck: normal visual inspection and full ROM Resp Effort & Inspection: normal respiratory effort, able to speak in complete sentences and symmetric chest movement GI Inspection: normal to inspection Palpation: soft and other Other: gravid Skin General: no rashes or lesions noted Neuro General: patient alert, patient awake and patient oriented x3 Cognition: normal cognition Speech: speech normal Gait: normal gait Motor: muscle tone normal throughout Extrem General: normal to inspection and full ROM Psych Appearance: grossly normal Mental Status: mental status grossly normal Mood: congruent mood Affect: normal affect Speech and Movement: speech and movement normal Attitude: cooperative Thought Process: normal Thought Content: normal Judgment: judgment good Results POC Urinalysis 2 Dip (Clinic) Office Urine Glucose Negative Last Edit by Amanda Alves on 01/21/25 09:57 Office Urine Protein Negative Last Edit by Amanda Alves on 01/21/25 09:57 Coding Level of Care Code OB Routine Diagnoses Uterine size date discrepancy O26.849 Thrombocytopenia affecting O99.119; D69.6 Abnormal glucose affecting O99.810 Rh negative, antepartum O26.899; Z67.91 Supervision of high-risk O09.90 37 weeks gestation of Z3A.37 Weeks of gestation: 37 weeks Assessment and Plan Assessment and Plan (1) Uterine size date discrepancy : Status: Acute Comment: ultrasound 01/02- 29% AC 21. normal DB (2) Thrombocytopenia affecting : Status: Acute Comment: repeat at 32 [id number] (3) Abnormal glucose affecting : Status: Acute Comment: passed 3 hour (4) Rh negative, antepartum: Status: Acute Comment: Rhogam at 28 weeks and PRN, O- patient to bring paper to scan in at next visit. (5) Supervision of high-risk : Status: Acute Comment: PRR, , EMIR 02/09/25, boy PC Mei, Siobhan. nl anatomy (6) : Status: Acute Qualifiers: Weeks of gestation: 37 weeks Qualified Code(s): Z3A.37 - 37 weeks gestation of Comment: declined NIPT & ntd, Carrier testing Orders: Orders POC Urinalysis 2 Dip (Clinic) Today OB Limited With Biometrics Today O26.849 - Uterine size-date discrepancy, unspecified trimester Plan Details Additional Comments: ACOG trimester education reviewed and updated. see problem list details for updated plan management information and see below for orders placed atthis visit. GA appropriate handout given. 01/21/25 1019 s ZEFERINO> Date _ Dahlia Spring CNM Cosigner Signature: Date (if applicable) CC: ~ [facility] [id number] [facility] [address], [address] [place] [address] OFFICE VISIT Date of Service: 01/12/25 MR#: [id number] Acct: [id number] Name: KATELYN ANTOINE Rep #: [id number] : 1995 Provider: Dr. 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 Is patient in pain?: No Allergies No Known Allergies Allergy (Verified 01/12/25 09:07) Medications ?Medication ?Instructions ?Recorded ?Confirmed ?Type acetaminophen 500 mg tablet 1,000 mg (2 x 500 mg) PO Q 6H PRN 08/14/21 01/12/25 Rx PRN Pain 1-10 Or Fever #0 tabs magnesium 200 mg tablet 330 mg PO QDAY 06/27/2404/30 History vitamins no.163-iron tab PO DAILY 06/27/24 History bis-gly 20 mg-folate no.10 1 mg tablet (PNV Tabs 20-1) pyridoxine (vitamin B6) 100 mg 100 mg PO QDAY 06/27/24 01/12/25 History tablet ondansetron 4 mg disintegrating 4 mg PO Q6H PRN nausea and 07/07/24 01/12/25 Rx tablet vomiting #90 tabs iron supplement PO 12/31/24 01/12/25 History Last Menstrual Period: 05/05/24 Zika: Zika virus screening: Negative : No PFSH PFSH Medical History Seasonal allergies care following vaginal delivery 40 weeks gestation of Anemia IBS (irritable bowel syndrome) Anxiety Social History adopted: No household members: spouse and children number of children: 1 current occupational status: unemployed current occupation: [employer] pets and animals: Yes pets and animals: dog(s) history of recent travel: Yes ([place]) out of state: Yes out of country: No sexually active: Yes Smoking Status: Former smoker how long ago did patient quit smokin years alcohol intake: current alcohol intake frequency: holidays/special occasions only details: Not while substance use type: does not use well-balanced diet: daily or most days caffeine: Yes Type: coffee Number of servings: 1 eating out: 1-3 times/week during the past year weight has: remained stable what type of physical activity do you participate in: none conrad/hinduism: Adventism seatbelt use: sometimes do you feel safe at home: Yes additional social history: - [place]- 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 Date Name GA/Weeks Outcome Route Bth Weight Gen Labor Lgth An esthesia Del Locatn Provider FOB 08/12/21 Mei 40 live - full term 6#12oz Female 12hr ep idural [facility] Deepali Culp [facility] Delivery Date: 08/12/21 Last Updated by: Fide Landis no complications HPI 36 wk ob Details: KATELYN ANTOINE is a 29 year old who presents for routine OB visit. OB Visit EMIR Calculator Estimated Delivery Date Method Current WG Current Estimate 02/09/25 Ultrasound #1 36w 0d Other Estimates 02/09/25 LMP (Certain) 36w 0d Expected Delivery Route/Plan Labor Preferences- CB/BF classes: [] labor support person: [] labor intervention preferences: [] pain management options preferred: [] cut cord/dad catch: [] : [] PP control planned: [] discussed possible routes of delivery and associated risks: [] special requests: [] Specific Issue/Plans Covid status: [] Flu vaccine: [] Tdap vaccine: [] Rhogam: [] LARC form signed: [] Problem list reviewed and updated with the most current plan of care details and appropriate ordersplaced. Relevant counseling for the gestational age provided. Continue routine care and follow up unless otherwise noted in visit notes/problem list details Initial Weight: 117 lb Date -?-?-?-?-?-?-?-?-?-?-?-?- EGA Weight BP Urine Prot -?-?-?-?-?-?-?-?-?-?-?-?- Glucose FHR FuHt Pres Dilation -?-?-?-?-?-?-?-?-?-?-?-?- Effaced St Visit Note 07/07/24 -?-?-?-?-?-?-?-?-?-?-?-?- 9w 0d 117 lb (+0 oz) 131/81 -?-?-?-?-?-?-?-?-?-?-?-?- 175 -?-?-?-?-?-?-?--?-?-?-?-?- KW- CRL cons wit h dates. declines NIPT. would like Sd hope appts. 08/12/24 -?-?-?-?-?-?-?-?-?-?-?-?- 14w 1d 116 lb 8 oz (-8 oz) 108/72 Negative -?-?-?-?-?-?-?-?-?-?-?-?- Negative 170 -?-?-?-?-?-?-?-?-?-?-?-?- JV- no complaint s today. bedside us shows 14 week IUP. Plans hospital anatomy scan. 09/10/24 -?-?-?-?-?-?-?-?-?-?-?-?- 18w 2d 124 lb (+7 lb) 118/68 Negative -?-?-?-?-?-?-?-?-?-?-?-?- Negative 160 -?-?-?-?-?-?-?-?-?-?-?-?- KW- no vb/crampi ng. + flutters. has anatomy scan in 2 weeks. 10/08/24 -?-?-?-?-?-?-?-?-?-?-?-?- 22w 2d 131 lb (+14 lb) 109/73 Negative -?-?-?-?-?-?-?-?-?-?-?-?- Negative 150 22 -?-?-?-?-?-?-?-?-?-?-?-?- KW- no vb/lof/ct x. good fm. anatomy reviewed. Having a BOY! feeling good. 11/05/24 -?-?-?-?-?-?-?-?-?-?-?-?- 26w 2d 137 lb 8 oz (+20 lb 8 oz) 108/74 Negative -?-?-?-?-?-?-?-?-?-?-?-?- Negative 135 25 -?-?-?-?-?-?-?-?-?-?-?-?- kw-no vb/lof/ctx . good fm kw-no vb/lof/ctx. good fm. n ext appt in [facility] for glucose draw 11/19/24 -?-?-?-?-?-?-?-?-?-?-?-?- 28w 2d 139 lb 8 oz (+22 lb 8 oz) 114/77 Negative -?-?-?-?-?-?-?-?-?-?-?-?- Negative 140 28 -?-?-?-?-?-?-?-?-?-?-?-?- SM- no vb lof go od fm no reuglar ctx cbc gct today declined rhogam is negative 12/01/24 -?-?-?-?-?-?-?-?-?-?-?-?- 30w 0d 142 lb 6 oz (+25 lb 6 oz) 103/71 Negative -?-?-?-?-?-?-?-?-?-?-?-?- Negative 144 30 -?-?-?-?-?-?-?-?-?-?-?-?- JV- passed 3 hr. no complaints today. LArc signed. rpt plts next visit. 12/17/24 -?-?-?-?-?-?-?-?-?-?-?-?- 32w 2d 145 lb 2 oz (+28 lb 2 oz) 116/75 Negative -?-?--?-?-?-?-?-?-?-?-?-?- Negative 155 31 -?-?-?-?-?-?-?-?-?-?-?-?- KW- no vb/lof/ct x. good fm. will get repeat labs within next week. 12/31/24 -?-?-?-?--?-?-?-?-?-?-?-?- 34w 2d 149 lb 2 oz (+32 lb 2 oz) 114/76 Negative -?-?-?-?-?-?-?-?-?-?-?-?- Negative 140 32 -?-?-?-?-?-?-?-?-?-?-?-?- KW- no vb/lof/ct x. good fm. GBS next visit. growth US ordered for size less than dates. 01/12/25 -?-?-?-?-?-?-?-?-?-?-?-?- 36w 0d 152 lb 6 oz (+35 lb 6 oz) 113/80 Negative -?-?-?-?-?-?-?-?-?-?-?-?- Negative 165 35.5 Cephalic 0 -?-?-?-?-?-?-?-?-?-?-?-?- JV- gbs collecte d. needs plts repeat at 38 weeks. ACOG First Trimester First Trimester: Discussed Second Trimester Second Trimester: Signs and Symptoms of Labor, Selecting a care provider, Reproductive Life Planning & Contreception, Care Planning, Depression/Anxiety and Intimate Partner Violence; Discussed Tobacco Cessation Third Trimester Third Trimester: Pain Management Plans, Labor support person(s), Immediate Larc, Signs and Symptoms of Preeclampsia, Infant Feeding No , Education and Family Medical Leave or Disability Forms Results POC Urinalysis 2 Dip (Clinic) Office Urine Glucose Negative Last Edit by Ysabel Bland on 01/12/25 09: 17 Office Urine Protein Negative Last Edit by Ysabel Bland on 01/12/25 09: 17 Coding Level of Care Code OB Routine Diagnoses Uterine size date discrepancy O26.849 Thrombocytopenia affecting O99.119; D69.6 Abnormal glucose affecting O99.810 Rh negative, antepartum O26.899; Z67.91 Supervision of high-risk O09.90 36 weeks gestation of Z3A.36 Weeks of gestation: 36 weeks Assessment and Plan Assessment and Plan (1) Uterine size date discrepancy : Status: Acute Comment: ultrasound 01/02- % AC 21. normal DB (2) Thrombocytopenia affecting : Status: Acute Comment: repeat at 32 [id number] (3) Abnormal glucose affecting : Status: Acute Comment: passed 3 hour (4) Rh negative, antepartum: Status: Acute Comment: Rhogam at 28 weeks and PRN, O- patient to bring paper to scan in at next visit. (5) Supervision of high-risk : Status: Acute Comment: PRR, , EMIR 02/09/25, boy PC Mei, Siobhan. nl anatomy (6) : Status: Acute Qualifiers: Weeks of gestation: 36 weeks Qualified Code(s): Z3A.36 - 36 weeks gestation of Comment: declined NIPT & ntd, Carrier testing Orders: Orders POC Urinalysis 2 Dip (Clinic) Today Culture, Group B Streptococcus Today O09.90 - Supervision of high risk , unspecified, unspecified trimester 01/12/25 0932 felix Vo DO> Date _ Patito Brown Signature: Date (if applicable) CC: ~ [facility]05-30-2025 Radiology Diagnostic study note [facility] Imaging Services [address] [place] [address] OB Limited With Biometrics MR#: [id number] Acct: [id number] Name: KATELYN ANTOINE Rep #: [id number] : 1995 F 29 From: Garrett Vernon MD PCP: Care Physician,No Primary Status: REG CLI Study:OB Limited With Biometrics Date of Exam : 01/02/25 Exam# [id number] Ordering Dr: Dahlia Spring CNM PROCEDURE: OB LIMITED WITH BIOMETRICS 01/02/2025 REASON FOR EXAM: UTERINE SIZE LESS THAN DATES TECHNIQUE: High resolution obstetric ultrasound performed using a 2D transducer. Standard views obtained, including biometry, anatomy survey, and Doppler studies. COMPARISON: September 24, 2024. FINDINGS Number: 1 Position: Vertex Placental Position: Posterior and not low-lying. Placental Abnormalities: None DIMENSIONS: Biparietal Diameter: 8.42 cm: 33 weeks and 6 days: 31%/ Head Circumference: 30.8 cm: 34 weeks and 2 days: 13 percentile/ Abdominal Circumference: 29.38 cm: 33 weeks and 3 days: 22nd percentile/ Femur Length: 6.77 cm: 34 weeks and 6 days: 48 percentile/ ESTIMATED WEIGHT: 2325 g plus/-349 g ESTIMATED WEIGHT PERCENTILE (24+ weeks): 30 ESTIMATED GESTATIONAL AGE: Baseline: 34 weeks and 4 days By Ultrasound: 33 weeks and 6 days ESTIMATED DATE OF DELIVERY: Baseline: February 09, 2025 By Ultrasound: February 14, 2025 BIOPHYSICAL ASSESSMENT: Amniotic Fluid Volume: 3.6 cm x 3 cm Amniotic Fluid Index: 9.7 (8-24 cm normal range) Cardiac Motion: 156 beats per minute (average) Trunk and Limb Motion: Present. MATERNAL ANATOMY: Adnexa: 3.1 cm Cervical Length (if measured): US/OB Limited With Biometrics IMPRESSION: Single live intrauterine gestation with a mean gestational age of 33 weeks and 6days. Reading Location: [place] [address] CC: ZEFERINO Spring; No Primary Care Physician ~ Business Operations Coordinator: Signed [facility]05-14-2025 [facility] [address] [place] [address], [address] [place] [address] OFFICE VISIT Date of Service: 12/17/24 MR#: [id number] Acct: [id number] Name: KATELYN ANTOINE Rep #: [id number] : 1995 Provider: ZEFERINO Spring Age/Sex: 29/F Location: [facility] Status: Signed Intake Vital Signs 07/07/24 08:59 12/01/24 09:00 12/17/24 09:09 12/17/24 09:11 Height 5 ft 7 in 5 ft 7 in 5 ft 7 in 5 ft 7 in Weight: 145 lb 2 oz BMI 22.7 BP 116/75 Intake Visit 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 Is patient in pain?: No Allergies No Known Allergies Allergy (Verified 12/17/24 09:10) Medications ?Medication ?Instructions ?Recorded ?Confirmed ?Type acetaminophen 500 mg tablet 1,000 mg (2 x 500 mg) PO Q 6H PRN 08/14/21 12/17/24 Rx PRN Pain 1-10 Or Fever #0 tabs magnesium 200 mg tablet 330 mg PO QDAY 06/27/2412/04 History vitamins no.163-iron tab PO DAILY 06/27/24 History bis-gly 20 mg-folate no.10 1 mg tablet (PNV Tabs 20-1) pyridoxine (vitamin B6) 100 mg 100 mg PO QDAY 06/27/24 12/17/24 History tablet ondansetron 4 mg disintegrating 4 mg PO Q6H PRN nausea and 07/07/24 12/17/24 Rx tablet vomiting #90 tabs Last Menstrual Period: 05/05/24 Do you think of yourself as: straight/heterosexual Current gender identity: female Zika: Zika virus screening: Negative : No PFSH PFSH Medical History Seasonal allergies care following vaginal delivery 40 weeks gestation of Anemia IBS (irritable bowel syndrome) Anxiety Social History adopted: No household members: spouse and children number of children: 1 current occupational status: unemployed current occupation: [employer] pets and animals: Yes pets and animals: dog(s) history of recent travel: Yes ([place]) out of state: Yes out of country: No sexually active: Yes Smoking Status: Former smoker how long ago did patient quit smokin years alcohol intake: current alcohol intake frequency: holidays/special occasions only details: Not while substance use type: does not use well-balanced diet: daily or most days caffeine: Yes Type: coffee Number of servings: 1 eating out: 1-3 times/week during the past year weight has: remained stable what type of physical activity do you participate in: none conrad/hinduism: Adventism seatbelt use: sometimes do you feel safe at home: Yes additional social history: - [place]- 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 Date Name GA/Weeks Outcome Route Bth Weight Infant Gen Labor Lgth Anesthesia Del Locatn Provider FOB 08/12/21 Mei 40 live - full term 6#12oz Female 12hr ep idural [facility] Deepali Culp [facility] Si[facility]han Delivery Date: 08/12/21 Last Updated by: Fide Landis no complications HPI 32 wk ob Details: KATELYN ANTOINE is a 29 year old who presents for routine OB visit. OB Visit EMIR Calculator Estimated Delivery Date Method Current WG Current Estimate 02/09/25 Ultrasound #1 32w 2d Other Estimates 02/09/25 LMP (Certain) 32w 2d Expected Delivery Route/Plan Labor Preferences- CB/BF classes: [] labor support person: [] labor intervention preferences: [] pain management options preferred: [] cut cord/dad catch: [] : [] PP control planned: [] discussed possible routes of delivery and associated risks: [] special requests: [] Specific Issue/Plans Covid status: [] Flu vaccine: [] Tdap vaccine: [] Rhogam: [] LARC form signed: [] Problem list reviewed and updated with the most current plan of care details and appropriate ordersplaced. Relevant counseling for the gestational age provided. Continue routine care and follow up unless otherwise noted in visit notes/problem list details Initial Weight: 117 lb Date -?-?-?-?-?-?-?-?-?-?-?-?- EGA Weight BP Urine Prot -?-?-?-?-?-?-?-?-?-?-?-?- Glucose FHR FuHt Pres Dilation -?-?-?-?-?-?-?-?-?-?-?-?- Effaced St Visit Note 07/07/24 -?-?-?-?-?-?-?-?-?-?-?-?- 9w 0d 117 lb (+0 oz) 131/81 -?--?-?-?-?-?-?-?-?-?-?-?- 175 -?-?-?-?-?-?-?-?-?-?-?-?- KW- CRL cons wit h dates. declines NIPT. would like Sd hope appts. 08/12/24 -?-?-?-?-?-?-?-?-?-?-?-?- 14w 1d 116 lb 8 oz (-8 oz) 108/72 Negative -?-?-?-?-?-?-?-?-?-?-?-?- Negative 170 -?-?-?-?-?-?-?-?-?-?-?-?- JV- no complaint s today. bedside us shows 14 week IUP. Plans hospital anatomy scan. 09/10/24 -?-?-?-?-?-?-?-?-?-?-?-?- 18w 2d 124 lb (+7 lb) 118/68 Negative -?-?-?-?-?-?-?-?-?-?-?-?- Negative 160 -?-?-?-?-?-?-?-?-?-?-?-?- KW- no vb/crampi ng. + flutters. has anatomy scan in 2 weeks. 10/08/24 -?-?-?-?-?-?-?-?-?-?-?-?- 22w 2d 131 lb (+14 lb) 109/73 Negative -?-?-?-?-?-?-?-?-?-?-?-?- Negative 150 22 -?-?-?-?-?-?-?-?--?-?-?-?- KW- no vb/lof/ct x. good fm. anatomy reviewed. Having a BOY! feeling good. 11/05/24 -?-?-?-?-?-?-?-?-?-?-?-?- 26w 2d 137 lb 8 oz (+20 lb 8 oz) 108/74 Negative -?-?-?-?-?-?-?-?-?-?-?-?- Negative 135 25 -?-?-?-?-?-?-?-?-?-?-?-?- kw-no vb/lof/ctx . good fm kw-no vb/lof/ctx. good fm. n ext appt in [facility] for glucose draw 11/19/24 -?-?-?-?-?-?-?-?-?-?-?-?- 28w 2d 139 lb 8 oz (+22 lb 8 oz) 114/77 Negative -?-?-?--?-?-?-?-?-?-?-?-?- Negative 140 28 -?-?-?-?-?-?-?-?-?-?-?-?- SM- no vb lof go od fm no reuglar ctx cbc gct today declined rhogam is negative 12/01/24 -?-?-?-?-?-?-?-?-?-?-?-?- 30w 0d 142 lb 6 oz (+25 lb 6 oz) 103/71 Negative -?-?-?-?-?-?-?-?-?-?-?-?- Negative 144 30 -?-?-?-?-?-?-?-?-?-?-?-?- JV- passed 3 hr. no complaints today. LArc signed. rpt plts next visit. 12/17/24 -?-?-?-?-?-?-?-?-?-?-?-?- 32w 2d 145 lb 2 oz (+28 lb 2 oz) 116/75 Negative -?-?-?-?-?-?-?-?-?-?-?-?- Negative 155 31 -?-?-?-?-?-?-?-?-?-?-?-?- KW- no vb/lof/ct x. good fm. will get repeat labs within next week. ACOG First Trimester First Trimester: Discussed Second Trimester Second Trimester: Signs and Symptoms of Labor, Selecting a care provider, Reproductive Life Planning & Contreception, Care Planning, Depression/Anxiety and Intimate Partner Violence; Discussed Tobacco Cessation Third Trimester Third Trimester: Pain Management Plans, Labor support person(s), Immediate Larc, Signs and Symptoms of Preeclampsia, Feeding No , [place] Education and Family Medical Leave or Disability Forms ROS Const Reports system reviewed and no additional complaints, except as documented Eyes Reports system reviewed and no additional complaints, except as documented ENT Reports system reviewed and no additional complaints, except as documented Card Reports system reviewed and no additional complaints, except as documented Resp Reports system reviewed and no additional complaints, except as documented GI Reports system reviewed and no additional complaints, except as documented, Denies nausea and Denies vomiting Reports system reviewed and no additional complaints, except as documented Musc Reports system reviewed and no additional complaints, except as documented Skin/Breast Reports system reviewed and no additional complaints, except as documented Neuro Yes system reviewed and no additional complaints, except as documented Psych Reports system reviewed and no additional complaints, except as documented Endo Reports system reviewed and no additional complaints, except as documented Duran/Lymph Reports system reviewed and no additional complaints, except as documented Aller/Immun Reports system reviewed and no additional complaints, except as documented Exam Const General: cooperative, healthy appearing and no acute distress Orientation: alert, awake and oriented x3 Neck Neck: normal visual inspection and full ROM Resp Effort & Inspection: normal respiratory effort, able to speak in complete sentences and symmetric chest movement GI Inspection: normal to inspection Palpation: soft and other Other: gravid Skin General: no rashes or lesions noted Neuro General: patient alert, patient awake and patient oriented x3 Cognition: normal cognition Speech: speech normal Gait: normal gait Motor: muscle tone normal throughout Extrem General: normal to inspection and full ROM Psych Appearance: grossly normal Mental Status: mental status grossly normal Mood: congruent mood Affect: normal affect Speech and Movement: speech and movement normal Attitude: cooperative Thought Process: normal Thought Content: normal Judgment: judgment good Results POC Urinalysis 2 Dip (Clinic) Office Urine Glucose Negative Last Edit by Amanda Joyceiser on 12/17/24 09:11 Office Urine Protein Negative Last Edit by Amanda Long on 12/17/24 09:11 Coding Level of Care Code OB Routine Diagnoses Thrombocytopenia affecting O99.119; D69.6 Abnormal glucose affecting O99.810 Rh negative, antepartum O26.899; Z67.91 Supervision of high-risk O09.90 32 weeks gestation of Z3A.32 Weeks of gestation: 32 weeks Assessment and Plan Assessment and Plan (1) Thrombocytopenia affecting : Status: Acute Comment: repeat at 32 weeks - order in (2) Abnormal glucose affecting : Status: Acute Comment: passed 3 hour (3) Rh negative, antepartum: Status: Acute Comment: Rhogam at 28 weeks and PRN, O- patient to bring paper to scan in at next visit. (4) Supervision of high-risk : Status: Acute Comment: PRR, , EMIR 02/09/25, cain Hurley, Siobhan. nl anatomy (5) : Status: Acute Qualifiers: Weeks of gestation: 32 weeks Qualified Code(s): Z3A.32 - 32 weeks gestation of Comment: declined NIPT & ntd, Carrier testing (6) Thrombocytopenia affecting : Status: Acute Comment: repeat at 32 weeks - order in (7) Abnormal glucose affecting : Status: Acute Comment: passed 3 hour (8) Rh negative, antepartum: Status: Acute Comment: Rhogam at 28 weeks and PRN, O- patient to bring paper to scan in at next visit. (9) Supervision of high-risk : Status: Acute Comment: PRR, , EMIR 02/09/25, cain Hurley, Siobhan. nl anatomy (10) : Status: Acute Qualifiers: Weeks of gestation: 32 weeks Qualified Code(s): Z3A.32 - 32 weeks gestation of Comment: declined NIPT & ntd, Carrier testing Orders: Orders POC Urinalysis 2 Dip (Clinic) Today Plan Details Additional Comments: ACOG trimester education reviewed and updated. see problem list details for updated plan management information and see below for orders placed atthis visit. GA appropriate handout given. 12/17/24 0918 s CNM> Date _ Dahlia Spring CNM Cosigner Signature: Date (if applicable) CC: ~ [facility]03-05-2025 Evaluation note* Diagnosis Onset Date Resolution Status Admit Date acute October 08 8:33am Rh negative, antepartum acute M arch 2024 8:33am Supervision of high-risk acute October 08, 2024 8:33am Former smoker, stopped smoki ng in distant past resolved October 08, 2024 8:33am acute November 05 9:46am Rh negative, antepartum acute A pril 2024 9:46am Supervision of high-risk acute November 05, 2024 9:46am Former smoker, stopped smoki ng in distant past resolved November 05, 2024 9:46am acute November 19 8:38am Rh negative, antepartum acute A pril 2024 8:38am Supervision of high-risk acute November 19, 2024 8:38am Abnormal glucose affecting acute December 01, 2024 8:52am acute December 01 8:52am Rh negative, antepartum acute A pril 2024 8:52am Supervision of high-risk acute December 01, 2024 8:52am Thrombocytopenia affecting acute December 01, 2024 8:52am Abnormal glucose affecting acute December 17, 2024 9 :00am acute December 17, 2024 9:00am Rh negative, antepartum acute M ay 2024 9:00am Supervision of high-risk acute December 17, 2024 9 :00am Thrombocytopenia affecting acute December 17, 2024 9 :00am Abnormal glucose affecting acute December 31, 2024 10:21am acute December 31, 2024 10:21am Rh negative, antepartum acute M ay 2024 10:21am Supervision of high-risk acute December 31, 2024 10:21am Thrombocytopenia affecting acute December 31, 2024 10:21am Uterine size date discrepanc y acute December 31, 2024 10:21am Abnormal glucose affecting acute January 12, 2025 9 :04am acute January 12, 2025 9:04am Rh negative, antepartum acute J une 2024 9:04am Supervision of high-risk acute January 12, 2025 9 :04am Thrombocytopenia affecting acute January 12, 2025 9 :04am Uterine size date discrepanc y acute January 12, 2025 9 :04am [facility] Work Phone: 1(641) 435-113803-05-2025 Evaluation note* Diagnosis Onset Date Resolution Status Admit Date acute October 08 8:33am Rh negative, antepartum acute 2024 8:33am Supervision of high-risk acute October 08, 2024 8:33am Former smoker, stopped smoki ng in distant past resolved October 08, 2024 8:33am acute November 05 9:46am Rh negative, antepartum acute A pril 2024 9:46am Supervision of high-risk acute November 05, 2024 9:46am Former smoker, stopped smoki ng in distant past resolved November 05, 2024 9:46am acute November 19 8:38am Rh negative, antepartum acute A pril 2024 8:38am Supervision of high-risk acute November 19, 2024 8:38am Abnormal glucose affecting acute December 01, 2024 8:52am acute December 01 8:52am Rh negative, antepartum acute A pril 2024 8:52am Supervision of high-risk acute December 01, 2024 8:52am Thrombocytopenia affecting acute December 01, 2024 8:52am Abnormal glucose affecting acute December 17, 2024 9 :00am acute December 17, 2024 9:00am Rh negative, antepartum acute M ay 2024 9:00am Supervision of high-risk acute December 17, 2024 9 :00am Thrombocytopenia affecting acute December 17, 2024 9 :00am Abnormal glucose affecting acute December 31, 2024 10:21am acute December 31, 2024 10:21am Rh negative, antepartum acute M ay 2024 10:21am Supervision of high-risk acute December 31, 2024 10:21am Thrombocytopenia affecting acute December 31, 2024 10:21am Uterine size date discrepanc y acute December 31, 2024 10:21am Abnormal glucose affecting acute January 12, 2025 9 :04am acute January 12, 2025 9:04am Rh negative, antepartum acute J une 2024 9:04am Supervision of high-risk acute January 12, 2025 9 :04am Thrombocytopenia affecting acute January 12, 2025 9 :04am Uterine size date discrepanc y acute January 12, 2025 9 :04am Abnormal glucose affecting acute January 21, 2025 9:39am acute January 21 9:39am Rh negative, antepartum acute J une 2024 9:39am Supervision of high-risk acute January 21, 2025 9:39am Thrombocytopenia affecting acute January 21, 2025 9:39am Uterine size date discrepanc y acute January 21, 2025 9:39am [facility] Work Phone: 1(903) 453-580203-05-2025 Evaluation note* Diagnosis Onset Date Resolution Status Admit Date acute October 08 8:33am Rh negative, antepartum acute M arch 2024 8:33am Supervision of high-risk acute October 08, 2024 8:33am Former smoker, stopped smoki ng in distant past resolved October 08, 2024 8:33am acute November 05 9:46am Rh negative, antepartum acute A pril 2024 9:46am Supervision of high-risk acute November 05, 2024 9:46am Former smoker, stopped smoki ng in distant past resolved November 05, 2024 9:46am acute November 19 8:38am Rh negative, antepartum acute A pril 2024 8:38am Supervision of high-risk acute November 19, 2024 8:38am Abnormal glucose affecting acute December 01, 2024 8:52am acute December 01 8:52am Rh negative, antepartum acute A pril 2024 8:52am Supervision of high-risk acute December 01, 2024 8:52am Thrombocytopenia affecting acute December 01, 2024 8:52am Abnormal glucose affecting acute December 17, 2024 9 :00am acute December 17, 2024 9:00am Rh negative, antepartum acute [facility] 2024 9:00am Supervision of high-risk acute December 17, 2024 9 :00am Thrombocytopenia affecting acute December 17, 2024 9 :00am Abnormal glucose affecting acute December 31, 2024 10:21am acute December 31, 2024 10:21am Rh negative, antepartum acute [facility] 2024 10:21am Supervision of high-risk acute December 31, 2024 10:21am Thrombocytopenia affecting acute December 31, 2024 10:21am Uterine size date discrepanc y acute December 31, 2024 10:21am Abnormal glucose affecting acute January 12, 2025 9 :04am acute January 12, 2025 9:04am Rh negative, [facility] 9:04am Supervision of high-risk acute January 12, 2025 9 :04am Thrombocytopenia affecting acute January 12, 2025 9 :04am Uterine size date discrepanc y acute January 12, 2025 9 :04am Abnormal glucose affecting acute January 21, 2025 9:39am acute January 21 9:39am Rh negative, antepartum [facility] 2024 9:39am Supervision of high-risk acute January 21, 2025 9:39am Thrombocytopenia affecting acute January 21, 2025 9:39am Uterine size date discrepanc y acute January 21, 2025 9:39am Abnormal glucose affecting acute January 26, 2025 1:43pm IUGR (intrauterine growth restriction) acute January 26, 2025 1:43pm acute January 26 1:43pm Rh negative, antepartum [facility] 20[facility] 1:43pm Supervision of high-risk acute January 26, 2025 1:43pm Thrombocytopenia affecting acute January 26, 2025 1:43pm Uterine size date discrepanc y acute January 26, 2025 1:43pm [facility] Work Phone: [phone] Evaluation note* Diagnosis Onset Date Resolution Status Admit Date acute September 10, 2024 7:24am Rh negative, antepartum acute F ebru2024 7:24am Supervision of high-risk acute September 10 7:24am Former smoker, stopped smoki ng in distant past resolved September 10 7:24am acute October 08 8:33am Rh negative, antepartum acute M arch 2024 8:33am Supervision of high-risk acute October 08, 2024 8:33am Former smoker, stopped smoki ng in distant past resolved October 08, 2024 8:33am acute November 05 9:46am Rh negative, antepartum acute A pril 2024 9:46am Supervision of high-risk acute November 05, 2024 9:46am Former smoker, stopped smoki ng in distant past resolved November 05, 2024 9:46am acute November 19 8:38am Rh negative, antepartum acute A pril 2024 8:38am Supervision of high-risk acute November 19, 2024 8:38am Abnormal glucose affecting acute December 01, 2024 8:52am acute December 01 8:52am Rh negative, antepartum acute A pril 2024 8:52am Supervision of high-risk acute December 01, 2024 8:52am Thrombocytopenia affecting acute December 01, 2024 8:52am Abnormal glucose affecting acute December 17, 2024 9 :00am acute December 17, 2024 9:00am Rh negative, antepartum acute M ay 2024 9:00am Supervision of high-risk acute December 17, 2024 9 :00am Thrombocytopenia affecting acute December 17, 2024 9 :00am [facility] Work Phone: [phone] Evaluation note* Diagnosis Onset Date Resolution Status Admit Date acute September 10, 2024 7:24am Rh negative, antepartum acute F ebruary 2024 7:24am Supervision of high-risk acute September 10 7:24am Former smoker, stopped smoki ng in distant past resolved September 10 7:24am acute October 08 8:33am Rh negative, antepartum acute M arch 2024 8:33am Supervision of high-risk acute October 08, 2024 8:33am Former smoker, stopped smoki ng in distant past resolved October 08, 2024 8:33am acute November 05 9:46am Rh negative, antepartum acute A pril 2024 9:46am Supervision of high-risk acute November 05, 2024 9:46am Former smoker, stopped smoki ng in distant past resolved November 05, 2024 9:46am acute November 19 8:38am Rh negative, antepartum acute A pril 2024 8:38am Supervision of high-risk acute November 19, 2024 8:38am Abnormal glucose affecting acute December 01, 2024 8:52am acute December 01 8:52am Rh negative, antepartum acute A pril 2024 8:52am Supervision of high-risk acute December 01, 2024 8:52am Thrombocytopenia affecting acute December 01, 2024 8:52am Abnormal glucose affecting acute December 17, 2024 9 :00am acute December 17, 2024 9:00am Rh negative, antepartum acute M ay 2024 9:00am Supervision of high-risk acute December 17, 2024 9 :00am Thrombocytopenia affecting acute December 17, 2024 9 :00am Abnormal glucose affecting acute December 31, 2024 1 0:21am acute December 31, 2024 10:21am Rh negative, antepartum acute M ay 2024 10:21am Supervision of high-risk acute December 31, 2024 1 0:21am Thrombocytopenia affecting acute December 31, 2024 1 0:21am Uterine size date discrepanc y acute December 31, 2024 1 0:21am [facility] Work Phone: 1([phone]) 154-994101-07-2025 Evaluation note* Diagnosis Onset Date Resolution Status Admit Date acute August 12, 2:19pm Rh negative, antepartum acute J anuary 2024 2:19pm Supervision of high-risk acute August 12 2:19pm Former smoker, stopped smoking in distant past resolved August 12, 2024 2:19pm acute September 10, 2024 7:24am Rh negative, antepartum acute F ebruary 2024 7:24am Supervision of high-risk acute September 10 7:24am Former smoker, stopped smoking in distant past resolved September 10, 2024 7:24am acute October 08 8:33am Rh negative, antepartum acute M arch 2024 8:33am Supervision of high-risk acute October 08, 2024 8:33am Former smoker, stopped smoking in distant past resolved October 8:33am acute November 05 9:46am Rh negative, antepartum acute A pril 2024 9:46am Supervision of high-risk acute November 05, 2024 9:46am Former smoker, stopped smoking in distant past resolved November 9:46am acute November 19 8:38am Rh negative, antepartum acute A pril 2024 8:38am Supervision of high-risk acute November 19, 2024 8:38am [facility] Work Phone: 1([phone]) 922-667904-25-2022 Miscellaneous Notes* Telephone Encounter - Patito Landis RN - 11/28/2021 10:50 AM EDT Patient notified. Patito Landis RN * Telephone Encounter - Patito Landis RN - 11/28/2021 10:47 AM EDT Left message for patient to call office. JAILYN would like patient to still have her diagnostic breast imaging. Patito Landis RN * Telephone Encounter - Caty Jaeger APRN.CNM - 11/28/2021 10:42 AM EDT Yes please. Thank you, Caty Jaeger APRN.CNM * Telephone Encounter - Patito Landis RN - 11/28/2021 10:11 AM EDT Patient is to have diagnostic breast imaging for lumps found in her right breast back in September. States one of lumps has completely gone and the other one is half the size. Asking if JAILYN still wantsher to have the imaging. Her appointment is December 06 Patito Landis RN documented [facility] NoteHNO ID: [id number] Author: Caty Jaeger APRN.CNM Service: ? Author Type: Public Policy Professor Type: Progress Notes Filed: 09/21/2021 2:11 PM Note Text: VISIT Katelyn Antoine is a 26 year old year old here for visit. Right breast lump has been present since milk came in. Stopped at 3 weeks PP. No redness or pain. Delivery Summary: on 08/12/21 by . Female Mei 6lb 10oz ROS/ Recovery: Feeding: Bottle feeding problems: Stopped after 3 weeks Menses since delivery: NA Menstrual pattern prior to : Regular periods [place] since delivery: Not resumed Depression: denies symptoms of depression. OB Depression and Anxiety Screening- This Encounter (since 09/20/2021) None Emotional support: Yes Bowel symptoms: No nausea, vomiting, or diarrhea, Negative for abdominal discomfort, blood in stools or black stools and change in bowel habits Abdomen: N/A Bladder symptoms: No dysuria, gross hematuria, urinary frequency, urinary urgency, or incontinence Other issues: None Last Pap: 2019 normal HPV: negative PAST MEDICAL HISTORY Diagnosis Date - Anemia during in third trimester 05/26/2021 - anxiety - IBS (irritable bowel syndrome) 01/19/2015 PAST SURGICAL HISTORY Procedure Laterality Date - NONE FAMILY HISTORY Problem Relation Age of Onset - No Known Problems Mother - No Known Problems Father - No Known Problems Sister - No Known Problems Brother - No Known Problems Brother - No Known Problems Brother - No Known Problems Maternal Grandmother - Arthritis Maternal Grandfather - Stroke Paternal Grandmother - Heart Paternal Grandfather - Aneurysm Paternal Grandfather Social History Tobacco Use - Smoking status: Former Smoker Years: 3.00 Types: Cigarettes Quit date: 01/06/2018 Years since quittin.7 - Smokeless tobacco: Never Used Vaping Use - Vaping Use: Former - Quit date: 01/06/2018 Substance Use Topics - Alcohol use: Not Currently Comment: occasional - Drug use: No PHYSICAL EXAMINATION: LMP 11/04/2020 BP 100/60 Wt 137 lb (62.1 kg) LMP 11/04/2020 (Exact Date) BMI 22.11 kg/m? GENERAL: pleasant, female in no apparent distress HEENT: Normocephalic, atraumatic, mucus membranes moist and no lesions NECK: Supple and full range of motion DERMATOLOGY: Normal and without lesions BREAST: soft, non-tender, symmetric, no dominant mass, normal nipple-areolar complex, no lymphadenopathy and no nipple discharge right breast lump at 10 'oclock 1cm by 1 cm mobile, round, smooth. CHEST: Normal inspiratory effort ABDOMEN: soft, non-tender and no masses. PELVIC: external genitalia normal, normal Bartholin's glands, urethra, [place]'s glands, no vulvar lesions, no cervical lesions, good vaginal support, physiologic discharge present, normal appearing perineal body and perianal region BIMANUAL: uterus normal size, shape and consistency, no adnexal masses and non-tender NEURO: alert and oriented x3,exam grossly non-focal EXTREMITIES: normal ASSESSMENT AND PLAN: 26 year old status post with normal course. Contraception plan: condoms Follow up: Right breast ultrasound and diagnostic mammogram if indicated. Order placed. Caty Jaeger APRN.[facility]01-26-2022 NoteHNO ID: [id number] Author: Boris Gr MA Service: ? Author Type: Line Camera Operator Type: Progress Notes Filed: 08/31/2021 9:52 AM Note Text: POPULATION HEALTH NAVIGATION OUTREACH Action/FYI PCP OFF BOARDING OUTREACH Attempt # 1 LMOVM Attempt # 2 Sent Lexarat Message. Encounter closed. Pt identified by name and : NO Outreach Outcome/Action Unable to reach patient: Left message MyChart message sent Reason for Outreach Attribution: Provider Off-boarding Payer: No coverage found. Care Gap Reviewed:: Annual Wellness visit Flu vaccine Reminder: Reminder note to check Health Maintenance for items below Health Maintenance items due: COVID-19 VACCINE(1) Never done DTAP,TDAP,TD(5 - Tdap) due on 2007 HPV VACCINE(1 - 2-dose series) Never done DEPRESSION SCREENING due on 05/23/2019 INFLUENZA(1) Never done PAP TESTING due on 12/16/2021 Message Sent to Practice: NO Navigation Signature: Boris Gr MA August 31, 2021 9:50 [facility]01-24-2022 NotePatient Outreach (NETNAV) KATELYN ANTOINE ([id number]) 1995 F Date Time Provider Department 08/29/21 BORIS GR During your visit today, we recorded the following information about you: Boris Gr MA 08/31/2021 9:52 AM Signed POPULATION HEALTH NAVIGATION OUTREACH Action/FYI PCP OFF BOARDING OUTREACH Attempt # 1 LMOVM Attempt # 2 Sent Lexarat Message. Encounter closed. Pt identified by name and : NO Outreach Outcome/Action Unable to reach patient: Left message Avatar Realityhart message sent Reason for Outreach Attribution: Provider Off-boarding Payer: No coverage found. Care Gap Reviewed:: Annual Wellness visit Flu vaccine Reminder: Reminder note to check Health Maintenance for items below Health Maintenance items due: COVID-19 VACCINE(1) Never done DTAP,TDAP,TD(5 - Tdap) due on 2007 HPV VACCINE(1 - 2-dose series) Never done DEPRESSION SCREENING due on 05/23/2019 INFLUENZA(1) Never done PAP TESTING due on 12/16/2021 Message Sent to Practice: NO Navigation Signature: Boris Gr MA August 31, 2021 9:50 AM Allergies As of Date: 08/29/2021 Noted Allergy Reaction SEASONAL ALLERGIES 03/23/2014 14 - Other: See Comments Date Reviewed: 08/10/2021 Reviewed by: Caty Jaeger APRN.CNM - Fully Assessed Reason for Visit: Population Health Navigation Outreach [3910] Cmt: Offboarding - Dr Ginny VIRGEN Prescriptions as of 08/31/2021 - ferrous sulfate (IRON) 325 mg (65 mg iron) tablet Take 325 mg by mouth daily with breakfast. Taking M W F - Caqwosch-Qb-Ase-Fe-FA ( VITAMIN) tab Take 1 tablet by mouth. 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01-10-2022 NoteHNO ID: [id number] Author: Treva Langford RN Service: ? Author Type: ? Type: Progress Notes Filed: 08/15/2021 12:09 PM Note Text: Patient delivered via by Dr. Culp on 08/12/21 at [facility]. See OB history. Treva Langford RNOhiohealth [facility]12-30-2021 NoteHNO ID: [id number] Author: Kayla Lunsford Service: ? Author Type: ? Type: Progress Notes Filed: 08/04/2021 12:58 PM Note Text: POPULATION HEALTH NAVIGATION OUTREACH Action/FYI Patient returned call updated ob/ped field Navigation Signature: Kayla Lunsford August 04, 2021 12:56 [facility]12-30-2021 NotePatient Outreach (NETNAV) KATELYN ANTOINE ([id number]) 1995 F Date Time Provider Department 08/04/21 KAYLA LUNSFORD During your visit today, we recorded the following information about you: Kayla Lunsford 08/04/2021 10:52 AM Signed POPULATION HEALTH NAVIGATION OUTREACH Action/ Left message to update production controller 2nd attempt my chart sent Contact made with patient or family member? NO Pt identified by name and : NO Outreach Outcome/Action Unable to reach patient: Left message Avatar Realityhart message sent Reason for Outreach Payer: No coverage found. Care Gap Reviewed:: Reminder: Reminder note to check Health Maintenance for items below Health Maintenance items due: COVID-19 VACCINE(1) Never done DTAP,TDAP,TD(5 - Tdap) due on 2007 HPV VACCINE(1 - 2-dose series) Never done DEPRESSION SCREENING due on 05/23/2019 INFLUENZA(1) Never done PAP TESTING due on 12/16/2021 Advanced Directives Completed: Have you ever planned for future healthcare decisions with a power of assistant office manager, living will, or advance directives? Referrals: Message Sent to Practice: Navigation Signature: Kayla Lunsford August 04, 2021 10:51 AM Kayla Lunsford 08/04/2021 12:58 PM Signed POPULATION HEALTH NAVIGATION OUTREACH Action/ Patient returned call updated ob/ped field Navigation Signature: Kayla Lunsford August 04, 2021 12:56 PM Allergies As of Date: 08/04/2021 Noted Allergy Reaction SEASONAL ALLERGIES 03/23/2014 14 - Other: See Comments Date Reviewed: 08/03/2021 Reviewed by: Kathrine Rodriguez MA - Fully Assessed Reason for Visit: Population Health Navigation Outreach [3910] Cmt: ob/peds Prescriptions as of 08/04/2021 - ferrous sulfate (IRON) 325 mg (65 mg iron) tablet Take 325 mg by mouth daily with breakfast. Taking M W F - Gyheofpw-Bt-Dys-Fe-FA ( VITAMIN) tab Take 1 tablet by mouth. 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 08-04-2021 NoteHNO ID: [id number] Author: Kayla Lunsford Service: ? Author Type: ? Type: Progress Notes Filed: 08/04/2021 10:52 AM Note Text: POPULATION HEALTH NAVIGATION OUTREACH Action/FYI Left message to update production controller 2nd attempt my chart sent Contact made with patient or family member? NO Pt identified by name and : NO Outreach Outcome/Action Unable to reach patient: Left message MyChart message sent Reason for Outreach Payer: No coverage found. Care Gap Reviewed:: Reminder: Reminder note to check Health Maintenance for items below Health Maintenance items due: COVID-19 VACCINE(1) Never done DTAP,TDAP,TD(5 - Tdap) due on 2007 HPV VACCINE(1 - 2-dose series) Never done DEPRESSION SCREENING due on 05/23/2019 INFLUENZA(1) Never done PAP TESTING due on 12/16/2021 Advanced Directives Completed: Have you ever planned for future healthcare decisions with a power of assistant office manager, living will, or advance directives? Referrals: Message Sent to Practice: Navigation Signature: Kayla Lunsford August 04, 2021 10:51 [facility]10-21-2021 History of Past illness Narrative* Problem Noted Date Resolved Date Anemia during in third trimester 05/2609/21/2021 Rh negative state in antepartum period 1 09/21/2021 Nausea and vomiting in 01/06/2021 09/21/2021 Overview: 01/06/2021atient is complaining of nausea and occasional vomiting in . Dietary considerations discussed . Vitamin B6 recommended. Advised patient to call/come in if she is unable to keep any food or fluids down in a 24-hour period. TKRN Patient request for diagnostic testing 1 09/21/2021 Overview: 01/06/2021 Patient desires nuchal ultrasound. Declines genetic carrier screening testing.TKRN documented as of this encounter (statuses as of 11/28/2021) [facility]10-21-2021 History of Past illness Narrative* Problem Noted Date Resolved Date Anemia during in third trimester 05/2609/21/2021 Rh negative state in antepartum period 1 09/21/2021 Nausea and vomiting in 01/06/2021 09/21/2021 Overview: 01/06/2021atient is complaining of nausea and occasional vomiting in . Dietary considerations discussed . Vitamin B6 recommended. Advised patient to call/come in if she is unable to keep any food or fluids down in a 24-hour period. TKRN Patient request for diagnostic testing 1 09/21/2021 Overview: 01/06/2021 Patient desires nuchal ultrasound. Declines genetic carrier screening testing.TKRN documented as of this encounter (statuses as of 12/07/2021) [facility]08-19-2021 NoteHNO ID: [id number] Author: Sherman Walker, DO Service: ? Author Type: Physician Type: Progress Notes Filed: 03/24/2021 5:40 PM Note Text: Patient here for routine anatomy scan. See ultrasound report for details. [facility] NoteHNO ID: [id number] Author: Luis Antonio Long MD Service: ? Author Type: Physician Type: Progress Notes Filed: 02/03/2021 9:04 AM Note Text: Please see ultrasound report for details of this visit. Luis Antonio Long M.D.[facility]07-01-2021 NoteHNO ID: [id number] Author: Patito Landis RN Service: ? Author Type: ? Type: Progress Notes Filed: 02/03/2021 9:43 AM Note Text: Patient here for First Trimester Screening. See ultrasound report for details. Options for genetic screening and diagnosis discussed with the patient. Patient opts for first trimester screening and the sequential screening protocol. Limitations of screening tests discussed with the patient. Yuki Braden APRN.[facility]06-04-2021 NoteHNO ID: [id number] Author: Iris Metzger MD Service: ? Author Type: Physician Type: Progress Notes Filed: 01/07/2021 11:04 AM Note Text: INITIAL OB ASSESSMENT OB Provider: Iris Metzger MD HPI: Katelyn Antoine is a 25 year old female here to establish Obstetrical Care. Patient's last menstrual period was 11/04/2020 (exact date). from OB Dating Form. Cycle length: 28 days Complaints: nausea and vomiting- intermittent was planned. Obstetric History T0 L0 SAB0 TAB0 Ectopic0 Multiple0 Live Births0 Prior : never History of 4th degree laceration: No Patient's Risk Screening for delivery: History of abnormal pap: No Prior treatment for cervical dysplasia: none. History of STDs: None Tobacco use: No Caffeine use: Yes Drug use: No Alcohol use: No Multivitamin with Folic acid: Yes Occupation: home Church or heritage: No Would refuse blood transfusion if medically necessary: No No weight on file for this encounter. Patient BMI over 30? No Marital Status: Partner: Name: Lorena Antoine Age: 27 Occupation: [employer] Gender: male History of STDs: None PAST MEDICAL HISTORY Diagnosis Date - anxiety - IBS (irritable bowel syndrome) 01/19/2015 PAST SURGICAL HISTORY Procedure Laterality Date - NONE Current Outpatient Medications on File Prior to Visit Medication Sig - Igyjsnov-Gp-Jxh-Fe-FA ( VITAMIN) tab Take 1 tablet by mouth. No current facility-administered medications on file prior to visit. Review of Systems: GENERAL: Negative for: Fever or Chills HEENT: Negative for: Headache, Impaired Vision, Ringing in Ears, Nosebleeds NECK: Negative for: Swelling, Pain, Stiffness RESPIRATORY: Negative for: Cough, Shortness of breath, Wheezing GASTROINTESTINAL: Negative for: Heartburn, Constipation, Diarrhea, Blood in stool, Vomiting MUSCULOSKELETAL: Negative for: Muscle or joint pain, stiffness, Joint swelling NEUROLOGIC/PSYCHIATRIC: + anxiety but doing well SKIN: Negative for: Rash, Itching GENITOURINARY: Negative for: vaginal itching, vaginal discharge, hematuria or dysuria PHYSICAL EXAM: BP 102/58 Ht 5' 6.535 (1.69m) Wt 115 lb (52.2kg) LMP 11/04/2020 BMI 18.26 kg/(m2). GENERAL: pleasant female in no apparent distress DERMATOLOGY: Normal, without lesions, non-icteric and non-hirsute NECK: Supple, full range of motion, no adenopathy and thyroid normal BREAST: soft, non-tender, symmetric, no dominant mass, normal nipple-areolar complex, no lymphadenopathy and no nipple discharge ABDOMEN: soft, non-tender and no masses NEURO: alert and oriented x3,exam grossly non-focal PELVIS: External genitalia normal without lesions. Perineal body intact. No vaginal or cervical lesions. Cervix closed. Uterus 8 week size. No adnexal masses or tenderness. Clinical Pelvimetry: Pelvimetry clinically assessed as adequate Limited OB ultrasound exam: single intrauterine and positive cardiac activity ASSESSMENT: 25 year old at 8.5 wks gestational age PLAN: 1) Patient oriented to practice. Discussed nutrition, folic acid supplementation, dietary guidelines, exercise, smoking, alcohol, caffeine, and drug use. Discussed routine OB labs including STD/HIV. Discussed aneuploidy screening options including serum screening and nuchal translucency. 2) NT ordered 3) Phenergan- traveling this week. Continue VIT B6 and unisom Follow up in 4 weeks or sooner prn. Iris Chatman, MDCleveland Clinic ClevelandEvaluation note* Diagnosis Mass of upper outer quadrant of right breast documented in this encounter [facility] Additional Instructions Call tomorrow to make a appointment for a repeat ultrasound on SundayJanuary 26 in the [place] office Schedule your growth ultrasound for end of next week Do kick counts twice a day and call if does not meet criteriaWMarion Hospital Work Phone: Progress note Author Dahlia Spring [facility] Note Date/Time December 17, 2024 9:18a m [facility] [address], [address] [place] [address] OFFICE VISIT Date of Service: 12/17/24 MR#: [id number] Acct: [id number] Name: KATELYN ANTOINE Rep #: [id number] : 1995 Provider: ZEFERINO Spring Age/Sex: 29/F Location: [facility] Status: Signed Intake Vital Signs 07/07/24 08:59 12/01/24 09:00 12/17/24 09:09 12/17/24 09:11 Height 5 ft 7 in 5 ft 7 in 5 ft 7 in 5 ft 7 in Weight: 145 lb 2 oz BMI 22.7 BP 116/75 Intake Visit 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 Is patient in pain?: No Allergies No Known Allergies Allergy (Verified 12/17/24 09:10) Medications ?Medication ?Instructions ?Recorded ?Confirmed ?Type acetaminophen 500 mg tablet 1,000 mg (2 x 500 mg) PO Q 6H PRN 08/14/21 12/17/24 Rx PRN Pain 1-10 Or Fever #0 tabs magnesium 200 mg tablet 330 mg PO QDAY 06/27/2412/04 History vitamins no.163-iron tab PO DAILY 06/27/24 History bis-gly 20 mg-folate no.10 1 mg tablet (PNV Tabs 20-1) pyridoxine (vitamin B6) 100 mg 100 mg PO QDAY 06/27/24 12/17/24 History tablet ondansetron 4 mg disintegrating 4 mg PO Q6H PRN nausea and 07/07/24 12/17/24 Rx tablet vomiting #90 tabs Last Menstrual Period: 05/05/24 Do you think of yourself as: straight/heterosexual Current gender identity: female Zika: Zika virus screening: Negative : No PFSH PFSH Medical History Seasonal allergies care following vaginal delivery 40 weeks gestation of Anemia IBS (irritable bowel syndrome) Anxiety Social History adopted: No household members: spouse and children number of children: 1 current occupational status: unemployed current occupation: [employer] pets and animals: Yes pets and animals: dog(s) history of recent travel: Yes ([place]) out of state: Yes out of country: No sexually active: Yes Smoking Status: Former smoker how long ago did patient quit smokin years alcohol intake: current alcohol intake frequency: holidays/special occasions only details: Not while substance use type: does not use well-balanced diet: daily or most days caffeine: Yes Type: coffee Number of servings: 1 eating out: 1-3 times/week during the past year weight has: remained stable what type of physical activity do you participate in: none conrad/hinduism: Adventism seatbelt use: sometimes do you feel safe at home: Yes additional social history: - Lorena- 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 Date Name GA/Weeks Outcome Route Bth Weight Gen Labor Lgth Anesthesia Del Locatn Provider FOB 08/12/21 Mei 40 live - full term 6#12oz Female 12hr ep idural [facility] Deepali Culp [facility] Delivery Date: 08/12/21 Last Updated by: Fide Landis no complications HPI 32 wk ob Details: KATELYN ANTOINE is a 29 year old who presents for routine OB visit. OB Visit EMIR Calculator Estimated Delivery Date Method Current WG Current Estimate 02/09/25 Ultrasound #1 32w 2d Other Estimates 02/09/25 LMP (Certain) 32w 2d Expected Delivery Route/Plan Labor Preferences- CB/BF classes: [] labor support person: [] labor intervention preferences: [] pain management options preferred: [] cut cord/dad catch: [] : [] PP control planned: [] discussed possible routes of delivery and associated risks: [] special requests: [] Specific Issue/Plans Covid status: [] Flu vaccine: [] Tdap vaccine: [] Rhogam: [] LARC form signed: [] Problem list reviewed and updated with the most current plan of care details and appropriate orders placed. Relevant counseling for the gestational age provided. Continue routine care and follow up unless otherwise noted in visit notes/problem list details Initial Weight: 117 lb Date -?-?-?-?-?-?-?-?-?-?-?-?- EGA Weight BP Urine Prot -?-?-?-?-?-?-?-?-?-?-?-?- Glucose FHR FuHt Pres Dilation -?-?-?-?-?-?-?-?-?-?-?-?- Effaced St Visit Note 07/07/24 -?-?-?-?-?-?-?-?-?-?-?-?- 9w 0d 117 lb (+0 oz) 131/81 -?--?-?-?-?-?-?-?-?-?-?-?- 175 -?-?-?-?-?-?-?-?-?-?-?-?- KW- CRL cons wit h dates. declines NIPT. would like Sd hope appts. 08/12/24 -?-?-?-?-?-?-?-?-?-?-?-?- 14w 1d 116 lb 8 oz (-8 oz) 108/72 Negative -?-?-?-?-?-?-?-?-?-?-?-?- Negative 170 -?-?-?-?-?-?-?-?-?-?-?-?- JV- no complaint s today. bedside us shows 14 week IUP. Plans [facility] anatomy scan. 09/10/24 -?-?-?-?-?-?-?-?-?-?-?-?- 18w 2d 124 lb (+7 lb) 118/68 Negative -?-?-?-?-?-?-?-?-?-?-?-?- Negative 160 -?-?-?-?-?-?-?-?-?-?-?-?- KW- no vb/crampi ng. + flutters. has anatomy scan in 2 weeks. 10/08/24 -?-?-?-?-?-?-?-?-?-?-?-?- 22w 2d 131 lb (+14 lb) 109/73 Negative -?-?-?-?-?-?-?-?-?-?-?-?- Negative 150 22 -?-?-?-?-?-?-?-?--?-?-?-?- KW- no vb/lof/ct x. good fm. anatomy reviewed. Having a BOY! feeling good. 11/05/24 -?-?-?-?-?-?-?-?-?-?-?-?- 26w 2d 137 lb 8 oz (+20 lb 8 oz) 108/74 Negative -?-?-?-?-?-?-?-?-?-?-?-?- Negative 135 25 -?-?-?-?-?-?-?-?-?-?-?-?- kw-no vb/lof/ctx . good fm kw-no vb/lof/ctx. good fm. n ext appt in [place] for glucose draw 11/19/24 -?-?-?-?-?-?-?-?-?-?-?-?- 28w 2d 139 lb 8 oz (+22 lb 8 oz) 114/77 Negative -?-?-?--?-?-?-?-?-?-?-?-?- Negative 140 28 -?-?-?-?-?-?-?-?-?-?-?-?- SM- no vb lof go od fm no reuglar ctx cbc gct today declined rhogam is negative 12/01/24 -?-?-?-?-?-?-?-?-?-?-?-?- 30w 0d 142 lb 6 oz (+25 lb 6 oz) 103/71 Negative -?-?-?-?-?-?-?-?-?-?-?-?- Negative 144 30 -?-?-?-?-?-?-?-?-?-?-?-?- JV- passed 3 hr. no complaints today. LArc signed. rpt plts next visit. 12/17/24 -?-?-?-?-?-?-?-?-?-?-?-?- 32w 2d 145 lb 2 oz (+28 lb 2 oz) 116/75 Negative -?-?-?-?-?-?-?-?-?-?-?-?- Negative 155 31 -?-?-?-?-?-?-?-?-?-?-?-?- KW- no vb/lof/ct x. good fm. will get repeat labs within next week. ACOG First Trimester First Trimester: Discussed Second Trimester Second Trimester: Signs and Symptoms of Labor, Selecting a care provider, Reproductive Life Planning & Contreception, Care Planning, Depression/Anxiety and Intimate Partner Violence; Discussed Tobacco Cessation Third Trimester Third Trimester: Pain Management Plans, Labor support person(s), Immediate Larc, Signs and Symptoms of Preeclampsia, Feeding No , [place] Education and Family Medical Leave or Disability Forms ROS Const Reports system reviewed and no additional complaints, except as documented Eyes Reports system reviewed and no additional complaints, except as documented ENT Reports system reviewed and no additional complaints, except as documented Card Reports system reviewed and no additional complaints, except as documented Resp Reports system reviewed and no additional complaints, except as documented GI Reports system reviewed and no additional complaints, except as documented, Denies nausea and Denies vomiting Reports system reviewed and no additional complaints, except as documented Musc Reports system reviewed and no additional complaints, except as documented Skin/Breast Reports system reviewed and no additional complaints, except as documented Neuro Yes system reviewed and no additional complaints, except as documented Psych Reports system reviewed and no additional complaints, except as documented Endo Reports system reviewed and no additional complaints, except as documented Duran/Lymph Reports system reviewed and no additional complaints, except as documented Aller/Immun Reports system reviewed and no additional complaints, except as documented Exam Const General: cooperative, healthy appearing and no acute distress Orientation: alert, awake and oriented x3 Neck Neck: normal visual inspection and full ROM Resp Effort & Inspection: normal respiratory effort, able to speak in complete sentences and symmetric chest movement GI Inspection: normal to inspection Palpation: soft and other Other: gravid Skin General: no rashes or lesions noted Neuro General: patient alert, patient awake and patient oriented x3 Cognition: normal cognition Speech: speech normal Gait: normal gait Motor: muscle tone normal throughout Extrem General: normal to inspection and full ROM Psych Appearance: grossly normal Mental Status: mental status grossly normal Mood: congruent mood Affect: normal affect Speech and Movement: speech and movement normal Attitude: cooperative Thought Process: normal Thought Content: normal Judgment: judgment good Results POC Urinalysis 2 Dip (Clinic) Office Urine Glucose Negative Last Edit by Amanda Alves on 12/17/24 09:11 Office Urine Protein Negative Last Edit by Amanda Alves on 12/17/24 09:11 Coding Level of Care Code OB Routine Diagnoses Thrombocytopenia affecting O99.119; D69.6 Abnormal glucose affecting O99.810 Rh negative, antepartum O26.899; Z67.91 Supervision of high-risk O09.90 32 weeks gestation of Z3A.32 Weeks of gestation: 32 weeks Assessment and Plan Assessment and Plan (1) Thrombocytopenia affecting : Status: Acute Comment: repeat at 32 weeks - order in (2) Abnormal glucose affecting : Status: Acute Comment: passed 3 hour (3) Rh negative, antepartum: Status: Acute Comment: Rhogam at 28 weeks and PRN, O- patient to bring paper to scan in at next visit. (4) Supervision of high-risk : Status: Acute Comment: PRR, , EMIR 02/09/25, cain Hurley Siobhan. gurdeep anatomy (5) : Status: Acute Qualifiers: Weeks of gestation: 32 weeks Qualified Code(s): Z3A.32 - 32 weeks gestation of Comment: declined NIPT & ntd, Carrier testing (6) Thrombocytopenia affecting : Status: Acute Comment: repeat at 32 weeks - order in (7) Abnormal glucose affecting : Status: Acute Comment: passed 3 hour (8) Rh negative, antepartum: Status: Acute Comment: Rhogam at 28 weeks and PRN, O- patient to bring paper to scan in at next visit. (9) Supervision of high-risk : Status: Acute Comment: PRR, , EMIR 02/09/25, cain Hurley, Siobhan. nl anatomy (10) : Status: Acute Qualifiers: Weeks of gestation: 32 weeks Qualified Code(s): Z3A.32 - 32 weeks gestation of Comment: declined NIPT & ntd, Carrier testing Orders: Orders POC Urinalysis 2 Dip (Clinic) Today Plan Details Additional Comments: ACOG trimester education reviewed and updated. see problem list details for updated plan management information and see below for orders placed at this visit. [place] appropriate handout given. 12/17/24917 <Electronically signed by Dahlia velez CNM> Date _ Dahlia Spring CNM Cosigner Signature: Date (if applicable) CC: ~ [facility] Work Phone: Progress note Author Patito Vo [facility] Services Note Date/Time January 12, 2025 9:32a [facility] [address] [place] [address], [address] [place] [address] OFFICE VISIT Date of Service: 01/12/25 MR#: [id number] Acct: [id number] Name: KATELYN ANTOINE Rep #: [id number] : 1995 Provider: Dr. 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 Is patient in pain?: No Allergies No Known Allergies Allergy (Verified 01/12/25 09:07) Medications ?Medication ?Instructions ?Recorded ?Confirmed ?Type acetaminophen 500 mg tablet 1,000 mg (2 x 500 mg) PO Q 6H PRN 08/14/21 01/12/25 Rx PRN Pain 1-10 Or Fever #0 tabs magnesium 200 mg tablet 330 mg PO QDAY 06/27/2404/30 History vitamins no.163-iron tab PO DAILY 06/27/24 History bis-gly 20 mg-folate no.10 1 mg tablet (PNV Tabs 20-1) pyridoxine (vitamin B6) 100 mg 100 mg PO QDAY 06/27/24 01/12/25 History tablet ondansetron 4 mg disintegrating 4 mg PO Q6H PRN nausea and 07/07/24 01/12/25 Rx tablet vomiting #90 tabs iron supplement PO 12/31/24 01/12/25 History Last Menstrual Period: 05/05/24 Zika: Zika virus screening: Negative : No PFSH PFSH Medical History Seasonal allergies care following vaginal delivery 40 weeks gestation of Anemia IBS (irritable bowel syndrome) Anxiety Social History adopted: No household members: spouse and children number of children: 1 current occupational status: unemployed current occupation: [employer] pets and animals: Yes pets and animals: dog(s) history of recent travel: Yes ([place]) out of state: Yes out of country: No sexually active: Yes Smoking Status: Former smoker how long ago did patient quit smokin years alcohol intake: current alcohol intake frequency: holidays/special occasions only details: Not while substance use type: does not use well-balanced diet: daily or most days caffeine: Yes Type: coffee Number of servings: 1 eating out: 1-3 times/week during the past year weight has: remained stable what type of physical activity do you participate in: none conrad/hinduism: Adventism seatbelt use: sometimes do you feel safe at home: Yes additional social history: - [place]- 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 Date Name GA/Weeks Outcome Route Bth Weight Infant Gen Labor Lgth An esthesia Del Locatn Provider FOB 08/12/21 Mei 40 live - full term 6#12oz Female 12hr ep idural [facility] Deepali Culp [facility] Delivery Date: 08/12/21 Last Updated by: Fide Landis no complications HPI 36 wk ob Details: KATELYN ANTOINE is a 29 year old who presents for routine OB visit. OB Visit EMIR Calculator Estimated Delivery Date Method Current WG Current Estimate 02/09/25 Ultrasound #1 36w 0d Other Estimates 02/09/25 LMP (Certain) 36w 0d Expected Delivery Route/Plan Labor Preferences- CB/BF classes: [] labor support person: [] labor intervention preferences: [] pain management options preferred: [] cut cord/dad catch: [] : [] PP control planned: [] discussed possible routes of delivery and associated risks: [] special requests: [] Specific Issue/Plans Covid status: [] Flu vaccine: [] Tdap vaccine: [] Rhogam: [] LARC form signed: [] Problem list reviewed and updated with the most current plan of care details and appropriate orders placed. Relevant counseling for the gestational age provided. Continue routine care and follow up unless otherwise noted in visit notes/problem list details Initial Weight: 117 lb Date -?-?-?-?-?-?-?-?-?-?-?-?- EGA Weight BP Urine Prot -?-?-?-?-?-?-?-?-?-?-?-?- Glucose FHR FuHt Pres Dilation -?-?-?-?-?-?-?-?-?-?-?-?- Effaced St Visit Note 07/07/24 -?-?-?-?-?-?-?-?-?-?-?-?- 9w 0d 117 lb (+0 oz) 131/81 -?-?-?-?-?-?-?-?-?-?-?-?- 175 -?-?-?-?-?-?-?--?-?-?-?-?- KW- CRL cons wit h dates. declines NIPT. would like Sd hope appts. 08/12/24 -?-?-?-?-?-?-?-?-?-?-?-?- 14w 1d 116 lb 8 oz (-8 oz) 108/72 Negative -?-?-?-?-?-?-?-?-?-?-?-?- Negative 170 -?-?-?-?-?-?-?-?-?-?-?-?- JV- no complaint s today. bedside us shows 14 week IUP. [facility] anatomy scan. 09/10/24 -?-?-?-?-?-?-?-?-?-?-?-?- 18w 2d 124 lb (+7 lb) 118/68 Negative -?-?-?-?-?-?-?-?-?-?-?-?- Negative 160 -?-?-?-?-?-?-?-?-?-?-?-?- KW- no vb/crampi ng. + flutters. has anatomy scan in 2 weeks. 10/08/24 -?-?-?-?-?-?-?-?-?-?-?-?- 22w 2d 131 lb (+14 lb) 109/73 Negative -?-?-?-?-?-?-?-?-?-?-?-?- Negative 150 22 -?-?-?-?-?-?-?-?-?-?-?-?- KW- no vb/lof/ct x. good fm. anatomy reviewed. Having a BOY! feeling good. 11/05/24 -?-?-?-?-?-?-?-?-?-?-?-?- 26w 2d 137 lb 8 oz (+20 lb 8 oz) 108/74 Negative -?-?-?-?-?-?-?-?-?-?-?-?- Negative 135 25 -?-?-?-?-?-?-?-?-?-?-?-?- kw-no vb/lof/ctx . good fm kw-no vb/lof/ctx. good fm. n ext appt in [facility] for glucose draw 11/19/24 -?-?-?-?-?-?-?-?-?-?-?-?- 28w 2d 139 lb 8 oz (+22 lb 8 oz) 114/77 Negative -?-?-?-?-?-?-?-?-?-?-?-?- Negative 140 28 -?-?-?-?-?-?-?-?-?-?-?-?- SM- no vb lof go od fm no reuglar ctx cbc gct today declined rhogam is negative 12/01/24 -?-?-?-?-?-?-?-?-?-?-?-?- 30w 0d 142 lb 6 oz (+25 lb 6 oz) 103/71 Negative -?-?-?-?-?-?-?-?-?-?-?-?- Negative 144 30 -?-?-?-?-?-?-?-?-?-?-?-?- JV- passed 3 hr. no complaints today. LArc signed. rpt plts next visit. 12/17/24 -?-?-?-?-?-?-?-?-?-?-?-?- 32w 2d 145 lb 2 oz (+28 lb 2 oz) 116/75 Negative -?-?--?-?-?-?-?-?-?-?-?-?- Negative 155 31 -?-?-?-?-?-?-?-?-?-?-?-?- KW- no vb/lof/ct x. good fm. will get repeat labs within next week. 12/31/24 -?-?-?-?--?-?-?-?-?-?-?-?- 34w 2d 149 lb 2 oz (+32 lb 2 oz) 114/76 Negative -?-?-?-?-?-?-?-?-?-?-?-?- Negative 140 32 -?-?-?-?-?-?-?-?-?-?-?-?- KW- no vb/lof/ct x. good fm. GBS next visit. growth US ordered for size less than dates. 01/12/25 -?-?-?-?-?-?-?-?-?-?-?-?- 36w 0d 152 lb 6 oz (+35 lb 6 oz) 113/80 Negative -?-?-?-?-?-?-?-?-?-?-?-?- Negative 165 35.5 Cephalic 0 -?-?-?-?-?-?-?-?-?-?-?-?- JV- gbs collecte d. needs plts repeat at 38 weeks. ACOG First Trimester First Trimester: Discussed Second Trimester Second Trimester: Signs and Symptoms of Labor, Selecting a care provider, Reproductive Life Planning & Contreception, Care Planning, Depression/Anxiety and Intimate Partner Violence; Discussed Tobacco Cessation Third Trimester Third Trimester: Pain Management Plans, Labor support person(s), Immediate Larc, Signs and Symptoms of Preeclampsia, Feeding No , Education and Family Medical Leave or Disability Forms Results POC Urinalysis 2 Dip (Clinic) Office Urine Glucose Negative Last Edit by Ysabel Bland on 01/12/25 09: 17 Office Urine Protein Negative Last Edit by Ysabel Bland on 01/12/25 09: 17 Coding Level of Care Code OB Routine Diagnoses Uterine size date discrepancy O26.849 Thrombocytopenia affecting O99.119; D69.6 Abnormal glucose affecting O99.810 Rh negative, antepartum O26.899; Z67.91 Supervision of high-risk O09.90 36 weeks gestation of Z3A.36 Weeks of gestation: 36 weeks Assessment and Plan Assessment and Plan (1) Uterine size date discrepancy : Status: Acute Comment: ultrasound 01/02- % AC 21. normal DB (2) Thrombocytopenia affecting : Status: Acute Comment: repeat at 32 [id number] (3) Abnormal glucose affecting : Status: Acute Comment: passed 3 hour (4) Rh negative, antepartum: Status: Acute Comment: Rhogam at 28 weeks and PRN, O- patient to bring paper to scan in at next visit. (5) Supervision of high-risk : Status: Acute Comment: PRR, , EMIR 02/09/25, boy PC Mei, Siobhan. nl anatomy (6) : Status: Acute Qualifiers: Weeks of gestation: 36 weeks Qualified Code(s): Z3A.36 - 36 weeks gestation of Comment: declined NIPT & ntd, Carrier testing Orders: Orders POC Urinalysis 2 Dip (Clinic) Today Culture, Group B Streptococcus Today O09.90 - Supervision of high risk , unspecified, unspecified trimester 01/12/25 0932 <Electronically signed by Patito Jj DO> Date _ Patito Arzola DO Cosigner Signature: Date (if applicable) CC: ~ [facility] Work Phone: Progress note Author Dahlia Spring [facility] Note Date/Time January 21, 2025 10:1 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: No Is patient in pain?: No Allergies No Known Allergies Allergy (Verified 01/21/25 09:50) Medications ?Medication ?Instructions ?Recorded ?Confirmed ?Type acetaminophen 500 mg tablet 1,000 mg (2 x 500 mg) PO Q 6H PRN 08/14/21 01/21/25 Rx PRN Pain 1-10 Or Fever #0 tabs magnesium 200 mg tablet 330 mg PO QDAY 06/27/2401/04 History vitamins no.163-iron tab PO DAILY 06/27/24 History bis-gly 20 mg-folate no.10 1 mg tablet (PNV Tabs 20-1) pyridoxine (vitamin B6) 100 mg 100 mg PO QDAY 06/27/24 01/21/25 History tablet ondansetron 4 mg disintegrating 4 mg PO Q6H PRN nausea and 07/07/24 01/21/25 Rx tablet vomiting #90 tabs iron supplement PO 12/31/24 01/21/25 History Last Menstrual Period: 05/05/24 Do you think of yourself as: straight/heterosexual Current gender identity: female : No PFSH PFSH Medical History Seasonal allergies care following vaginal delivery 40 weeks gestation of Anemia IBS (irritable bowel syndrome) Anxiety Social History adopted: No household members: spouse and children number of children: 1 current occupational status: unemployed current occupation: [employer] pets and animals: Yes pets and animals: dog(s) history of recent travel: Yes ([place]) out of state: Yes out of country: No sexually active: Yes do you think of yourself as: straight/heterosexual current gender identity: female Smoking Status: Former smoker how long ago did patient quit smokin years alcohol intake: current alcohol intake frequency: holidays/special occasions only details: Not while substance use type: does not use well-balanced diet: daily or most days caffeine: Yes Type: coffee Number of servings: 1 eating out: 1-3 times/week during the past year weight has: remained stable what type of physical activity do you participate in: none conrad/hinduism: Adventism seatbelt use: sometimes do you feel safe at home: Yes additional social history: - [place]- 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 Date Name GA/Weeks Outcome Route Bth Weight Infant Gen Labor Lgth Anesthesia Del Locatn Provider FOB 08/12/21 Mei 40 live - full term 6#12oz Female 12hr ep idural [facility] Deepali Culp [facility] Delivery Date: 08/12/21 Last Updated by: Fide Landis no complications HPI 37 wk ob Details: KATELYN ANTOINE is a 29 year old who presents for routine OB visit. OB Visit EMIR Calculator Estimated Delivery Date Method Current WG Current Estimate 02/09/25 Ultrasound #1 37w 2d Other Estimates 02/09/25 LMP (Certain) 37w 2d Expected Delivery Route/Plan Labor Preferences- CB/BF classes: [] labor support person: [] labor intervention preferences: [] pain management options preferred: [] cut cord/dad catch: [] : [] PP control planned: [] discussed possible routes of delivery and associated risks: [] special requests: [] Specific Issue/Plans Covid status: [] Flu vaccine: [] Tdap vaccine: [] Rhogam: [] LARC form signed: [] Problem list reviewed and updated with the most current plan of care details and appropriate orders placed. Relevant counseling for the gestational age provided. Continue routine care and follow up unless otherwise noted in visit notes/problem list details Initial Weight: 117 lb Date -?-?-?-?-?-?-?-?-?-?-?-?- EGA Weight BP Urine Prot -?-?-?-?-?-?-?-?-?-?-?-?- Glucose FHR FuHt Pres Dilation -?-?-?-?-?-?-?-?-?-?-?-?- Effaced St Visit Note 07/07/24 -?-?-?-?-?-?-?-?-?-?-?-?- 9w 0d 117 lb (+0 oz) 131/81 -?-?-?-?-?-?-?-?-?-?-?-?- 175 -?--?-?-?-?-?-?-?-?-?-?-?- KW- CRL cons wit h dates. declines NIPT. would like Sd hope appts. 08/12/24 -?-?-?-?-?-?-?-?-?-?-?-?- 14w 1d 116 lb 8 oz (-8 oz) 108/72 Negative -?-?-?-?-?-?-?-?-?-?-?-?- Negative 170 -?-?-?-?-?-?-?-?-?-?-?-?- JV- no complaint s today. bedside us shows 14 week IUP. [facility] anatomy scan. 09/10/24 -?-?-?-?-?-?-?-?-?-?-?-?- 18w 2d 124 lb (+7 lb) 118/68 Negative -?-?-?-?-?-?-?-?-?-?-?-?- Negative 160 -?-?-?-?-?-?-?-?-?-?-?-?- KW- no vb/crampi ng. + flutters. has anatomy scan in 2 weeks. 10/08/24 -?-?-?-?-?-?-?-?-?-?-?-?- 22w 2d 131 lb (+14 lb) 109/73 Negative -?-?-?-?-?-?-?-?-?-?-?-?- Negative 150 22 -?-?-?-?-?-?-?-?-?-?-?-?- KW- no vb/lof/ct x. good fm. anatomy reviewed. Having a BOY! feeling good. 11/05/24 -?-?-?-?-?-?-?-?-?-?-?-?- 26w 2d 137 lb 8 oz (+20 lb 8 oz) 108/74 Negative -?-?-?-?-?-?-?--?-?-?-?-?- Negative 135 25 -?-?-?-?-?-?-?-?-?-?-?-?- kw-no vb/lof/ctx . good fm kw-no vb/lof/ctx. good fm. n ext appt in [facility] for glucose draw 11/19/24 -?-?-?-?-?-?-?-?-?-?-?-?- 28w 2d 139 lb 8 oz (+22 lb 8 oz) 114/77 Negative -?-?-?-?-?-?-?-?-?-?-?-?- Negative 140 28 -?-?-?-?-?-?-?-?-?-?-?-?- SM- no vb lof go od fm no reuglar ctx cbc gct today declined rhogam is negative 12/01/24 -?-?-?-?-?-?-?-?-?-?-?-?- 30w 0d 142 lb 6 oz (+25 lb 6 oz) 103/71 Negative -?-?-?-?-?-?-?-?-?-?-?-?- Negative 144 30 -?-?-?-?-?-?-?-?-?-?-?-?- JV- passed 3 hr. no complaints today. LArc signed. rpt plts next visit. 12/17/24 -?-?-?-?-?-?-?-?-?-?-?-?- 32w 2d 145 lb 2 oz (+28 lb 2 oz) 116/75 Negative -?-?-?-?-?-?-?-?-?-?-?-?- Negative 155 31 -?-?-?-?-?-?-?-?-?-?-?-?- KW- no vb/lof/ct x. good fm. will get repeat labs within next week. 12/31/24 -?-?-?-?-?-?-?-?-?-?-?-?- 34w 2d 149 lb 2 oz (+32 lb 2 oz) 114/76 Negative -?-?-?-?-?-?-?-?-?-?-?-?- Negative 140 32 -?-?-?-?-?-?-?--?-?-?-?-?- KW- no vb/lof/ct x. good fm. GBS next visit. growth US ordered for size less than dates. 01/12/25 -?-?-?-?-?-?-?-?-?-?-?-?- 36w 0d 152 lb 6 oz (+35 lb 6 oz) 113/80 Negative -?-?-?-?-?-?-?-?-?-?-?-?- Negative 165 35.5 Cephalic 0 -?-?-?-?-?-?-?-?-?-?-?-?- JV- gbs collecte d. needs plts repeat at 38 weeks. 01/21/25 -?-?-?-?-?-?-?-?-?-?-?-?- 37w 2d 153 lb 6 oz (+36 lb 6 oz) 111/75 Negative -?-?-?-?-?-?-?-?-?-?-?-?- Negative 160 34 -?-?-?-?-?-?-?-?-?-?-?-?- KW- no vb/lof/ct x. good fm. no concerns today. growth US ordered for S<D KW- no vb/lof/ctx. good fm. no concerns today. growth US ordered for S<D. last growth was 01/02. ACOG First Trimester First Trimester: Discussed Second Trimester Second Trimester: Signs and Symptoms of Labor, Selecting a care provider, Reproductive Life Planning & Contreception, Care Planning, Depression/Anxiety and Intimate Partner Violence; Discussed Tobacco Cessation Third Trimester Third Trimester: Pain Management Plans, Labor support person(s), Immediate Larc, Signs and Symptoms of Preeclampsia, Infant Feeding No , [place] Education and Family Medical Leave or Disability Forms ROS Const Reports system reviewed and no additional complaints, except as documented Eyes Reports system reviewed and no additional complaints, except as documented ENT Reports system reviewed and no additional complaints, except as documented Card Reports system reviewed and no additional complaints, except as documented Resp Reports system reviewed and no additional complaints, except as documented GI Reports system reviewed and no additional complaints, except as documented, Denies nausea and Denies vomiting Reports system reviewed and no additional complaints, except as documented Musc Reports system reviewed and no additional complaints, except as documented Skin/Breast Reports system reviewed and no additional complaints, except as documented Neuro Yes system reviewed and no additional complaints, except as documented Psych Reports system reviewed and no additional complaints, except as documented Endo Reports system reviewed and no additional complaints, except as documented Duran/Lymph Reports system reviewed and no additional complaints, except as documented Aller/Immun Reports system reviewed and no additional complaints, except as documented Exam Const General: cooperative, healthy appearing and no acute distress Orientation: alert, awake and oriented x3 Neck Neck: normal visual inspection and full ROM Resp Effort & Inspection: normal respiratory effort, able to speak in complete sentences and symmetric chest movement GI Inspection: normal to inspection Palpation: soft and other Other: gravid Skin General: no rashes or lesions noted Neuro General: patient alert, patient awake and patient oriented x3 Cognition: normal cognition Speech: speech normal Gait: normal gait Motor: muscle tone normal throughout Extrem General: normal to inspection and full ROM Psych Appearance: grossly normal Mental Status: mental status grossly normal Mood: congruent mood Affect: normal affect Speech and Movement: speech and movement normal Attitude: cooperative Thought Process: normal Thought Content: normal Judgment: judgment good Results POC Urinalysis 2 Dip (Clinic) Office Urine Glucose Negative Last Edit by Amanda Alves on 01/21/25 09:57 Office Urine Protein Negative Last Edit by Amanda Alves on 01/21/25 09:57 Coding Level of Care Code OB Routine Diagnoses Uterine size date discrepancy O26.849 Thrombocytopenia affecting O99.119; D69.6 Abnormal glucose affecting O99.810 Rh negative, antepartum O26.899; Z67.91 Supervision of high-risk O09.90 37 weeks gestation of Z3A.37 Weeks of gestation: 37 weeks Assessment and Plan Assessment and Plan (1) Uterine size date discrepancy : Status: Acute Comment: ultrasound 01/02- 29% AC 21. normal DB (2) Thrombocytopenia affecting : Status: Acute Comment: repeat at 32 [id number] (3) Abnormal glucose affecting : Status: Acute Comment: passed 3 hour (4) Rh negative, antepartum: Status: Acute Comment: Rhogam at 28 weeks and PRN, O- patient to bring paper to scan in at next visit. (5) Supervision of high-risk : Status: Acute Comment: PRR, , EMIR 02/09/25, boy PC Mei, Siobhan. nl anatomy (6) : Status: Acute Qualifiers: Weeks of gestation: 37 weeks Qualified Code(s): Z3A.37 - 37 weeks gestation of Comment: declined NIPT & ntd, Carrier testing Orders: Orders POC Urinalysis 2 Dip (Clinic) Today OB Limited With Biometrics Today O26.849 - Uterine size-date discrepancy, unspecified trimester Plan Details Additional Comments: ACOG trimester education reviewed and updated. see problem list details for updated plan management information and see below for orders placed at this visit. [place] appropriate handout given. 01/21/25 1019 <Electronically signed by Dahlia velez CNM> Date _ Dahlia Spring CNM Cosigner Signature: Date (if applicable) CC: ~ [facility] Work Phone: Reason for referral (narrative)* Diagnostic Procedure Only (Routine) - Pending Review Specialty Diagnoses / Procedures Referred By Addison morrison Referred To Contact [facility] Diagnoses Mass of upper outer quadrant of right breast Procedures US BREAST LTD RT US BREAST UNI REAL TIME WITH IMAGE LIMITED Caty Jaeger APRN.CNM [address] [place] [address] [facility] [address] [place] [address] Referral ID Status Reason Start Date Expiration Date Visits Requested Visits Authorized [id number] Pending Review Auto-Generat ed Referral 09/21/2021 10/21/2022 1 1 [facility] for referral (narrative)No reason for [facility] Work Phone: Summary Purpose Family History No Family History Records FoundNo Family History Records Found Advance Directives No Advanced Directives Records FoundNo Advanced Directives Records Found Chief Complaint and Reason for Visit Chief Complaint Admit Date 14wk OB August 12, 2024 2: 19pm 18 wk ob September 10, 2024 7 :24am ANATOMY September 24, 2024 3:30pm 22 wk ob October 08, 2024 8:33 am 26 wk ob November 05, 2024 9:46 am 28 wk ob/glucose November 19, 2024 8:3 8am Reason for Visit Admit Date August 12, 2024 2: 19pm Rh negative, antepartum August 12 2:19pm Supervision of high-risk Janua 2024 2:19pm Former smoker, stopped smoking in August 12, 2024 2:19pm September 10, 2024 7 :24am Rh negative, antepartum September 10 7:24am Supervision of high-risk Febru 2024 7:24am Former smoker, stopped smoking in September 10, 2024 7:24am October 08, 2024 8:33 am Rh negative, antepartum October 08, 2024 8:33am Supervision of high-risk October 08, 2024 8:33am Former smoker, stopped smoking in October 08, 2024 8:33am November 05, 2024 9:46 am Rh negative, antepartum November 05, 2024 9:46am Supervision of high-risk November 05, 2024 9:46am Former smoker, stopped smoking in November 05, 2024 9:46am November 19, 2024 8:3 8am Rh negative, antepartum November 19, 2024 8:38am Supervision of high-risk November 19, 2024 8:38am Chief Complaint Admit Date 18 wk ob September 10, 2024 7 :24am ANATOMY September 24, 2024 3:30pm 22 wk ob October 08, 2024 8:33 am 26 wk ob November 05, 2024 9:46 am 28 wk ob/glucose November 19, 2024 8:3 8am GESTATIONAL November 25, 2024 7:0 7am 30 wk ob December 01, 2024 8:5 2am 32 wk ob December 17, 2024 9:00a m Reason for Visit Admit Date September 10, 2024 7 :24am Rh negative, antepartum September 10 7:24am Supervision of high-risk u [email or web address] 7:24am Former smoker, stopped smoking in September 10, 2024 7:24am October 08, 2024 8:33 am Rh negative, antepartum October 08, 2024 8:33am Supervision of high-risk October 08, 2024 8:33am Former smoker, stopped smoking in [employer] past October 08, 2024 8:33am November 05, 2024 9:46 am Rh negative, antepartum November 05, 2024 9:46am Supervision of high-risk November 05, 2024 9:46am Former smoker, stopped smoking in [employer] past November 05, 2024 9:46am November 19, 2024 8:3 8am Rh negative, antepartum November 19, 2024 8:38am Supervision of high-risk November 19, 2024 8:38am Abnormal glucose affecting Apr il 2024 8:52am December 01, 2024 8:5 2am Rh negative, antepartum December 01, 2024 8:52am Supervision of high-risk December 01, 2024 8:52am Thrombocytopenia affecting Apr 2024 8:52am Abnormal glucose affecting December 17, 2024 9:00am December 17, 2024 9:00a m Rh negative, antepartum December 17, 2024 9 :00am Supervision of high-risk December 042024 9:00am Thrombocytopenia affecting December 17, 2024 9:00am Chief Complaint Admit Date 18 wk ob September 10, 2024 7 :24am ANATOMY September 24, 2024 3:30pm 22 wk ob October 08, 2024 8:33 am 26 wk ob November 05, 2024 9:46 am 28 wk ob/glucose November 19, 2024 8:3 8am GESTATIONAL November 25, 2024 7:0 7am 30 wk ob December 01, 2024 8:5 2am 32 wk ob December 17, 2024 9:00a m 34 wk ob December 31, 2024 10:21 am Reason for Visit Admit Date September 10, 2024 7 :24am Rh negative, antepartum September 10 7:24am Supervision of high-risk Febru [email or web address] 7:24am Former smoker, stopped smoking in [employer] past September 10, 2024 7:24am October 08, 2024 8:33 am Rh negative, antepartum October 08, 2024 8:33am Supervision of high-risk October 08, 2024 8:33am Former smoker, stopped smoking in [place] past October 08, 2024 8:33am November 05, 2024 9:46 am Rh negative, antepartum November 05, 2024 9:46am Supervision of high-risk November 05, 2024 9:46am Former smoker, stopped smoking in [employer] past November 05, 2024 9:46am November 19, 2024 8:3 8am Rh negative, antepartum November 19, 2024 8:38am Supervision of high-risk November 19, 2024 8:38am Abnormal glucose affecting Apr 2024 8:52am December 01, 2024 8:5 2am Rh negative, antepartum December 01, 2024 8:52am Supervision of high-risk December 01, 2024 8:52am Thrombocytopenia affecting Nov 8:52am Abnormal glucose affecting December 17, 2024 9:00am December 17, 2024 9:00a m Rh negative, antepartum December 17, 2024 9 :00am Supervision of high-risk December 042024 9:00am Thrombocytopenia affecting December 17, 2024 9:00am Abnormal glucose affecting December 31, 2024 10:21am December 31, 2024 10:21 am Rh negative, antepartum December 31, 2024 1 0:21am Supervision of high-risk December 052024 10:21am Thrombocytopenia affecting December 31, 2024 10:21am Uterine size date discrepancy December 31, 2024 10:21am Chief Complaint Admit Date ANATOMY September 24, 2024 3:30pm 22 wk ob October 08, 2024 8:33 am 26 wk ob November 05, 2024 9:46 am 28 wk ob/glucose November 19, 2024 8:3 8am GESTATIONAL November 25, 2024 7:0 7am 30 wk ob December 01, 2024 8:5 2am 32 wk ob December 17, 2024 9:00a m 34 wk ob December 31, 2024 10:21 am GROWTH January 02, 2025 8:37a m 36 wk ob January 12, 2025 9:04a m Reason for Visit Admit Date October 08, 2024 8:33 am Rh negative, antepartum October 08, 2024 8:33am Supervision of high-risk October 08, 2024 8:33am Former smoker, stopped smoking in an t past October 08, 2024 8:33am November 05, 2024 9:46 am Rh negative, antepartum November 05, 2024 9:46am Supervision of high-risk November 05, 2024 9:46am Former smoker, stopped smoking in t past November 05, 2024 9:46am November 19, 2024 8:3 8am Rh negative, antepartum November 19, 2024 8:38am Supervision of high-risk November 19, 2024 8:38am Abnormal glucose affecting Apr 2024 8:52am December 01, 2024 8:5 2am Rh negative, antepartum December 01, 2024 8:52am Supervision of high-risk December 01, 2024 8:52am Thrombocytopenia affecting Apr 2024 8:52am Abnormal glucose affecting December 17, 2024 9:00am December 17, 2024 9:00a m Rh negative, antepartum December 17, 2024 9 :00am Supervision of high-risk December 042024 9:00am Thrombocytopenia affecting December 17, 2024 9:00am Abnormal glucose affecting December 31, 2024 10:21am December 31, 2024 10:21 am Rh negative, antepartum December 31, 2024 1 0:21am Supervision of high-risk December 052024 10:21am Thrombocytopenia affecting December 31, 2024 10:21am Uterine size date discrepancy December 31, 2024 10:21am Abnormal glucose affecting Jan 9:04am January 12, 2025 9:04a m Rh negative, antepartum January 12, 2025 9 :04am Supervision of high-risk January 12, 2025 9:04am Thrombocytopenia affecting Jan 9:04am Uterine size date discrepancy January 12, 2025 9:04am Chief Complaint Admit Date 18 wk ob September 10, 2024 7 :24am ANATOMY September 24, 2024 3:30pm 22 wk ob October 08, 2024 8:33 am 26 wk ob November 05, 2024 9:46 am 28 wk ob/glucose November 19, 2024 8:3 8am GESTATIONAL November 25, 2024 7:0 7am 30 wk ob December 01, 2024 8:5 2am 32 wk ob December 17, 2024 9:00a m 34 wk ob December 31, 2024 10:21 am GROWTH January 02, 2025 8:37a m Chief Complaint Admit Date ANATOMY September 24, 2024 3:30pm 22 wk ob October 08, 2024 8:33 am 26 wk ob November 05, 2024 9:46 am 28 wk ob/glucose November 19, 2024 8:3 8am GESTATIONAL November 25, 2024 7:0 7am 30 wk ob December 01, 2024 8:5 2am 32 wk ob December 17, 2024 9:00a m 34 wk ob December 31, 2024 10:21 am GROWTH January 02, 2025 8:37a m 36 wk ob January 12, 2025 9:04a m 37 wk ob January 21, 2025 9:39 am Reason for Visit Admit Date October 08, 2024 8:33 am Rh negative, antepartum October 08, 2024 8:33am Supervision of high-risk October 08, 2024 8:33am Former smoker, stopped smoking in [employer] past October 08, 2024 8:33am November 05, 2024 9:46 am Rh negative, antepartum November 05, 2024 9:46am Supervision of high-risk November 05, 2024 9:46am Former smoker, stopped smoking in [employer] past November 05, 2024 9:46am November 19, 2024 8:3 8am Rh negative, antepartum November 19, 2024 8:38am Supervision of high-risk November 19, 2024 8:38am Abnormal glucose affecting Apr 2024 8:52am December 01, 2024 8:5 2am Rh negative, antepartum December 01, 2024 8:52am Supervision of high-risk December 01, 2024 8:52am Thrombocytopenia affecting Apr 2024 8:52am Abnormal glucose affecting December 17, 2024 9:00am December 17, 2024 9:00a m Rh negative, antepartum December 17, 2024 9 :00am Supervision of high-risk December 042024 9:00am Thrombocytopenia affecting December 17, 2024 9:00am Abnormal glucose affecting December 31, 2024 10:21am December 31, 2024 10:21 am Rh negative, antepartum December 31, 2024 1 0:21am Supervision of high-risk December 052024 10:21am Thrombocytopenia affecting December 31, 2024 10:21am Uterine size date discrepancy December 31, 2024 10:21am Abnormal glucose affecting Jan 9:04am January 12, 2025 9:04a m Rh negative, antepartum January 12, 2025 9 :04am Supervision of high-risk January 12, 2025 9:04am Thrombocytopenia affecting Jan 9:04am Uterine size date discrepancy January 12, 2025 9:04am Abnormal glucose affecting Jan 9:39am January 21, 2025 9:39 am Rh negative, antepartum January 21, 2025 9:39am Supervision of high-risk January 21, 2025 9:39am Thrombocytopenia affecting Jan 9:39am Uterine size date discrepancy January 21, 2025 9:39am Chief Complaint Admit Date ANATOMY September 24, 2024 3:30pm 22 wk ob October 08, 2024 8:33 am 26 wk ob November 05, 2024 9:46 am 28 wk ob/glucose November 19, 2024 8:3 8am GESTATIONAL November 25, 2024 7:0 7am 30 wk ob December 01, 2024 8:5 2am 32 wk ob December 17, 2024 9:00a m 34 wk ob December 31, 2024 10:21 am GROWTH January 02, 2025 8:37a m 36 wk ob January 12, 2025 9:04a m 37 wk ob January 21, 2025 9:39 am EXTENDED MONITORING January 21, 2025 4:07 pm Chief Complaint Admit Date 22 wk ob October 08, 2024 8:33 am 26 wk ob November 05, 2024 9:46 am 28 wk ob/glucose November 19, 2024 8:3 8am GESTATIONAL November 25, 2024 7:0 7am 30 wk ob December 01, 2024 8:5 2am 32 wk ob December 17, 2024 9:00a m 34 wk ob December 31, 2024 10:21 am GROWTH January 02, 2025 8:37a m 36 wk ob January 12, 2025 9:04a m 37 wk ob January 21, 2025 9:39 am EXTENDED MONITORING January 21, 2025 4:07 pm EXTENDED MONITORING January 25, 2025 12:1 2pm 38w, Amniotic fluid check per SM January 262024 1:43pm Reason for Visit Admit Date October 08, 2024 8:33 am Rh negative, antepartum October 08, 2024 8:33am Supervision of high-risk October 08, 2024 8:33am Former smoker, stopped smoking in [employer] past October 08, 2024 8:33am November 05, 2024 9:46 am Rh negative, antepartum November 05, 2024 9:46am Supervision of high-risk November 05, 2024 9:46am Former smoker, stopped smoking in [employer] past November 05, 2024 9:46am November 19, 2024 8:3 8am Rh negative, antepartum November 19, 2024 8:38am Supervision of high-risk November 19, 2024 8:38am Abnormal glucose affecting Apr 2024 8:52am December 01, 2024 8:5 2am Rh negative, antepartum December 01, 2024 8:52am Supervision of high-risk December 01, 2024 8:52am Thrombocytopenia affecting Apr 2024 8:52am Abnormal glucose affecting December 17, 2024 9:00am December 17, 2024 9:00a m Rh negative, antepartum December 17, 2024 9 :00am Supervision of high-risk December 042024 9:00am Thrombocytopenia affecting December 17, 2024 9:00am Abnormal glucose affecting December 31, 2024 10:21am December 31, 2024 10:21 am Rh negative, antepartum December 31, 2024 1 0:21am Supervision of high-risk December 052024 10:21am Thrombocytopenia affecting December 31, 2024 10:21am Uterine size date discrepancy December 31, 2024 10:21am Abnormal glucose affecting Jan 9:04am January 12, 2025 9:04a m Rh negative, antepartum January 12, 2025 9 :04am Supervision of high-risk January 12, 2025 9:04am Thrombocytopenia affecting Jan 9:04am Uterine size date discrepancy January 12, 2025 9:04am Abnormal glucose affecting Jan 9:39am January 21, 2025 9:39 am Rh negative, antepartum January 21, 2025 9:39am Supervision of high-risk January 21, 2025 9:39am Thrombocytopenia affecting Jan 9:39am Uterine size date discrepancy January 21, 2025 9:39am Abnormal glucose affecting Jan 1:43pm IUGR (intrauterine growth restriction) J une 2024 1:43pm January 26, 2025 1:43 pm Rh negative, antepartum January 26, 2025 1:43pm Supervision of high-risk January 26, 2025 1:43pm Thrombocytopenia affecting Jan 1:43pm Uterine size date discrepancy January 26, 2025 1:43pm Additional Source Comments Source Comments (unrecognize d section and content) In the event this informatio n is protected by the Federal Confidentiality of Alcohol and Drug Abuse Patient Records regulations: The Federal rules restrict any use of the information to criminally investigate or prosecute any alcohol or drug abuse patient.[facility] the event this information is protected by the Federal Confidentiality of Alcohol and Drug Abuse Patient Records regulations: The Federal rules restrict any use of the information to criminally investigate or prosecute any alcohol or drug abuse patient.[facility] Reason for Visit (unrecogniz ed section and content) Reason Comments Patient Question Specialty Diagnoses / Procedures Referred By Addison t Referred To Contact [facility] Department Diagnoses POST Procedures POST Self [facility] Dept Referral ID Status Reason Start Date Expiration Date Visits Requested Visits Authorized [id number] Authorized Patient Cleared - Qualified 100% FAS 09/12/2021 12/11/2021 99 99 Care Teams (unrecognized sec tion and content) Photography Coordinator Relationship Specialty Start Date End Date Adriano Gross III, MD [facility] PCP - General 05/30/02 Photography Coordinator Relationship Specialty Start Date End Date Adriano Gross III, MD [employer] PCP - General 05/30/02 Team Status: Active Member Role Status Dates No Primary Care Physician Primary Care Provider Active Team Status: Inactive Member Role Status Dates Dr. Patito Arzola DO Attending Provider Activ e Start: August 12, 2024 End: August 12, 2024 Team Status: Inactive Member Role Status Dates Dahlia Spring CNM Attending Provider Active S tart: September 10, 2024 End: September 10, 2024 No Primary Care Physician Primary Care Provider Active Start: September 10, 2024 End: September 10, 2024 No Primary Care Physician Referring Provider Active Start: September 10, 2024 End: September 10, 2024 Team Status: Inactive Member Role Status Dates Dr. Patito Arzola DO Attending Provider Activ e Start: September 24, 2024 End: September 24, 2024 Dr. Patito Arzola DO Referring Provider Activ e Start: September 24, 2024 End: September 24, 2024 No Primary Care Physician Primary Care Provider Active Start: September 24, 2024 End: September 24, 2024 Team Status: Inactive Member Role Status Dates Dahlia Spring CNM Attending Provider Active S tart: October 08, 2024 End: October 08, 2024 No Primary Care Physician Primary Care Provider Active Start: October 08, 2024 End: October 08, 2024 No Primary Care Physician Referring Provider Active Start: October 08, 2024 End: October 08, 2024 Team Status: Inactive Member Role Status Dates Dahlia Spring CNM Attending Provider Active S tart: November 05, 2024 End: November 05, 2024 No Primary Care Physician Primary Care Provider Active Start: November 05, 2024 End: November 05, 2024 No Primary Care Physician Referring Provider Active Start: November 05, 2024 End: November 05, 2024 Team Status: Inactive Member Role Status Dates Dr. Jena Campos MD Attending Provider Active Start: November 19, 2024 End: November 19, 2024 No Primary Care Physician Primary Care Provider Active Start: November 19, 2024 End: November 19, 2024 No Primary Care Physician Referring Provider Active Start: November 19, 2024 End: November 19, 2024 Team Status: Inactive Member Role Status Dates No Primary Care Physician Primary Care Provider Active Start: November 19, 2024 End: November 19, 2024 Dahlia Spring CNM Attending Provider Active S tart: November 19, 2024 End: November 19, 2024 Dahlia Spring CNM Referring Provider Active S tart: November 19, 2024 End: November 19, 2024 Team Status: Inactive Member Role Status Dates No Primary Care Physician Primary Care Provider Active Start: November 25, 2024 End: November 25, 2024 Dahlia Spring CNM Attending Provider Active S tart: November 25, 2024 End: November 25, 2024 Dahlia Spring CNM Referring Provider Active S tart: November 25, 2024 End: November 25, 2024 Team Status: Inactive Member Role Status Dates Dr. Patito Arzola DO Attending Provider Activ e Start: December 01, 2024 End: December 01, 2024 No Primary Care Physician Primary Care Provider Active Start: December 01, 2024 End: December 01, 2024 No Primary Care Physician Referring Provider Active Start: December 01, 2024 End: December 01, 2024 Team Status: Inactive Member Role Status Dates Dahlia Spring CNM Attending Provider Active S tart: December 17, 2024 End: December 17, 2024 No Primary Care Physician Primary Care Provider Active Start: December 17, 2024 End: December 17, 2024 No Primary Care Physician Referring Provider Active Start: December 17, 2024 End: December 17, 2024 Team Status: Inactive Member Role Status Dates No Primary Care Physician Primary Care Provider Active Start: December 26, 2024 End: December 26, 2024 Dr. Jena Campos MD Attending Provider Active Start: December 26, 2024 End: December 26, 2024 Dr. Jena Campos MD Referring Provider Active Start: December 26, 2024 End: December 26, 2024 Team Status: Inactive Member Role Status Dates No Primary Care Physician Primary Care Provider Active Start: December 31, 2024 End: December 31, 2024 No Primary Care Physician Referring Provider Active Start: December 31, 2024 End: December 31, 2024 Dahlia Spring CNM Attending Provider Active S tart: December 31, 2024 End: December 31, 2024 Team Status: Inactive Member Role Status Dates No Primary Care Physician Primary Care Provider Active Start: January 02, 2025 End: January 02, 2025 Dahlia Spring CNM Attending Provider Active S tart: January 02, 2025 End: January 02, 2025 Dahlia Spring CNM Referring Provider Active S tart: January 02, 2025 End: January 02, 2025 Team Status: Inactive Member Role Status Dates Dr. Patito Arzola DO Attending Provider Activ e Start: January 12, 2025 End: January 12, 2025 No Primary Care Physician Primary Care Provider Active Start: January 12, 2025 End: January 12, 2025 No Primary Care Physician Referring Provider Active Start: January 12, 2025 End: January 12, 2025 Team Status: Inactive Member Role Status Dates No Primary Care Physician Primary Care Provider Active Start: January 12, 2025 End: January 12, 2025 Dr. Patito Arzola DO Attending Provider Activ e Start: January 12, 2025 End: January 12, 2025 Dr. Patito Arzola DO Referring Provider Activ e Start: January 12, 2025 End: January 12, 2025 Team Status: Inactive Member Role Status Dates No Primary Care Physician Primary Care Provider Active Start: January 21, 2025 End: January 21, 2025 No Primary Care Physician Referring Provider Active Start: January 21, 2025 End: January 21, 2025 Dahlia Spring CNM Attending Provider Active S tart: January 21, 2025 End: January 21, 2025 Team Status: Inactive Member Role Status Dates No Primary Care Physician Primary Care Provider Active Start: January 21, 2025 End: January 21, 2025 Dr. Jena Campos MD Attending Provider Active Start: January 21, 2025 End: January 21, 2025 Dr. Jena Campos MD Referring Provider Active Start: January 21, 2025 End: January 21, 2025 Team Status: Active Member Role Status Dates No Primary Care Physician Primary Care Provider Active Start: January 25, 2025 Dr. Jena Campos MD Attending Provider Active Start: January 25, 2025 Dr. Jena Campos MD Referring Provider Active Start: January 25, 2025 Dr. Jena Campos MD Other Provider Active Start: January 25, 2025 Team Status: Inactive Member Role Status Dates No Primary Care Physician Primary Care Provider Active Start: January 26, 2025 End: January 26, 2025 No Primary Care Physician Referring Provider Active Start: January 26, 2025 End: January 26, 2025 Dr. Patito Arzola DO Attending Provider Activ e Start: January 26, 2025 End: January 26, 2025 Team Status: Active Member Role Status Dates No Primary Care Physician Primary Care Provider Active Start: January 26, 2025 Dr. Patito Arzola DO Attending Provider Activ e Start: January 26, 2025 Dr. Patito Arzola DO Referring Provider Activ e Start: January 26, 2025 INFORMATION SOURCE (unrecogn ized section and content) DATE CREATED AUTHOR 12/08/2021 [facility] DATE CREATED AUTHOR AUTHOR'S ORGANIZ ATION 01/26/2025 [facility] Goals (unrecognized section and content) Goals may be documented in a n alternate sectionGoals may be documented in an alternate sectionGoals may be documented in an alternate sectionGoals may be documented in an alternate sectionGoals may be documented in an alternate sectionGoals may be documented in an alternate sectionGoals may be documented in an alternate sectionGoals may be documented in an alternate sectionGoals may be documented in an alternate sectionGoals may be documented in an alternate section FOR RECORDS PERTAINING TO PATIENTS WHO ARE OR HAVE BEEN ENROLLED IN A CHEMICAL DEPENDENCY/SUBSTANCEABUSE PROGRAM, SOME INFORMATION MAY BE OMITTED. This clinical summary was aggregated from multiple sources. Caution should be exercised in using it in the provision of clinical care. This summary normalizes information from multiple sources, and as a consequence, information in this document may materially change the coding, format and clinical context of patient data. In addition, data may be omitted in some cases. CLINICAL DECISIONS SHOULD BE BASED ON THE PRIMARY CLINICAL RECORDS. [email or web address] provides no warranty or guarantee of the accuracy or completeness of information in this document.
[2025-01-27] MEDS: Lactated Ringers 1,000 ML 50 ML IV (07:35)
[2025-01-27] MEDS: Oxytocin 15 Units/NS 250ml 15 UNITS/250 ML IV.SOLN 2 UNITS IV (07:47)
[2025-01-27 07:49] LABS: Absolute Lymphocyte Count 1.34 X10^3/uL (0.83-4.51); Absolute Neutrophil Count 5.5 X10^3/uL (2.0-7.7); Basophil# 0.02 X10^3/uL; Basophil% 0.3 % (0-1); Eosinophil# 0.07 X10^3/uL; Eosinophils% 0.9 % (0-5); Hematocrit 36.2 % (37-47); Hemoglobin 12.2 g/dL (12.0-15.0); Lymphocyte # 1.34 X10^3/ul (0.83-4.51); Lymphocyte % 17.1 % (19-41); Mean Corp Hgb Conc 33.7 g/dL (32-36); Mean Corpuscular Hgb 31.6 pg (27.0-32.0); Mean Corpuscular Volume 93.8 fL (81-99); Mean Platelet Vol. 12.5 fl (6.2-12.0); Monocyte# 0.78 X10^3/uL; NRBC Flagged by Analyzer 0 % (0-5); Neutrophil # 5.53 X10^3/uL (2.7-7.7); Neutrophil % 70.7 % (47-70); Platelet Count 122 K/mm3 (150-450); RBC Distribution Width CV 14.2 % (11.6-14.6); RBC Distribution Width SD 48.7 fl (35.1-43.9); Red Blood Count 3.86 M/mm3 (4.2-5.4); White Blood Count 7.8 K/mm3 (4.4-11.0)
--- NOTE | 2025-01-27 08:20 | HP.PCM.OB_ITS ---
HPI - General General Date of Admission: 01/27/25 HPI Narrative WENDI RAPHAEL, is a 29 F who presents at 38.1for IOL for suspected IUGR <2.5% on ultrasound yesterday. gbs neg. complicated by thrombocytopenia, no interventions needed. Maternal Data Information EMIR Calculator Estimated Delivery Date Method Current WG Current Estimate 02/09/25 Ultrasound #1 38w 1d Other Estimates 02/09/25 LMP (Certain) 38w 1d PFSH PFSH Medical History Seasonal allergies care following vaginal delivery 40 weeks gestation of Anemia IBS (irritable bowel syndrome) Anxiety Home Medications ?Medication ?Instructions ?Recorded ?Last Taken ?Type magnesium 200 mg tablet 330 mg PO QDAY 06/27/2401/04 07:00 History vitamins no.163-iron 1 tab PO DAILY 06/27/24 01/21/25 07:00 History bis-gly 20 mg-folate no.10 1 mg tablet (PNV Tabs 20-1) iron supplement 1 tab PO DAILY 12/31/2401/04 07:00 History Allergy/AdvReac Type Severity Reaction Status Date / Time No Known Allergies Allergy Verified 01/27/25 07:23 Social History adopted: No household members: spouse and children number of children: 1 current occupational status: unemployed current occupation: [employer] pets and animals: Yes pets and animals: dog(s) history of recent travel: Yes ([place]) out of state: Yes out of country: No sexually active: Yes Smoking Status: Former smoker how long ago did patient quit smokin years alcohol intake: current alcohol intake frequency: holidays/special occasions only details: Not while substance use type: does not use well-balanced diet: daily or most days caffeine: Yes Type: coffee Number of servings: 1 eating out: 1-3 times/week during the past year weight has: remained stable what type of physical activity do you participate in: none conrad/bahai: Mandaeism seatbelt use: sometimes do you feel safe at home: Yes additional social history: - [place]- 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 Date Name GA/Weeks Outcome Route Bth Weight Gen Labor Lgth Anes thesi a Del Locatn Provider FOB 08/12/21 Mei 40 live - full term 6#12oz Female 12hr ep idural [facility] Deepali Franco [facility] Delivery Date: 08/12/21 Last Updated by: Fide Landis no complications Visit Details Expected Delivery Route/Plan Labor Preferences- CB/BF classes: [] labor support person: [] labor intervention preferences: [] pain management options preferred: [] cut cord/dad catch: [] : [] PP control planned: [] discussed possible routes of delivery and associated risks: [] special requests: [] Plans Covid status: [] Flu vaccine: [] Tdap vaccine: [] Rhogam: [] LARC form signed: [] Problem list reviewed and updated with the most current plan of care details and appropriate orders placed. Relevant counseling for the gestational age provided. Continue routine care and follow up unless otherwise noted in visit notes/problem list details OB Flowsheet Initial Weight: 117 lb Date -?-?-?-?-?-?-?-?-?-?-?-?- EGA Weight BP Urine Prot -?-?-?-?-?-?-?-?-?-?-?-?- Glucose FHR FuHt Pres Dilation -?-?-?-?-?-?-?-?-?-?-?-?- Effaced St Visit Note 07/07/24 -?-?-?-?-?-?-?-?-?-?-?-?- 9w 0d 117 lb (+0 oz) 131/81 -?-?-?-?-?-?-?-?-?-?-?-?- 175 -?-?-?-?-?-?-?-?-?-?-?-?- KW- CRL cons wit h dates. declines NIPT. would like Nv hope appts. 08/12/24 -?-?-?-?-?-?-?-?-?-?-?-?- 14w 1d 116 lb 8 oz (-8 oz) 108/72 Negative -?-?-?-?-?-?-?-?-?-?-?-?- Negative 170 -?-?-?-?-?-?-?-?-?-?-?-?- JV- no complaint s today. bedside us shows 14 week IUP. [facility] anatomy scan. 09/10/24 -?-?-?-?-?-?-?-?-?-?-?-?- 18w 2d 124 lb (+7 lb) 118/68 Negative -?-?-?-?-?-?-?-?-?-?-?-?- Negative 160 -?-?-?-?-?-?-?-?-?-?-?-?- KW- no vb/crampi ng. + flutters. has anatomy scan in 2 weeks. 10/08/24 -?-?-?-?-?-?-?-?-?-?-?-?- 22w 2d 131 lb (+14 lb) 109/73 Negative -?-?-?-?-?-?-?-?-?-?-?-?- Negative 150 22 -?-?-?-?-?-?-?-?-?-?-?-?- KW- no vb/lof/ct x. good fm. anatomy reviewed. Having a BOY! feeling good. 11/05/24 -?-?-?-?-?-?-?-?-?-?-?-?- 26w 2d 137 lb 8 oz (+20 lb 8 oz) 108/74 Negative -?-?-?-?-?-?-?-?-?-?-?-?- Negative 135 25 -?-?-?-?-?-?-?-?-?-?-?-?- kw-no vb/lof/ctx . good fm kw-no vb/lof/ctx. good fm. n ext appt in [place] for glucose draw 11/19/24 -?-?-?-?-?-?-?-?-?-?-?-?- 28w 2d 139 lb 8 oz (+22 lb 8 oz) 114/77 Negative -?-?-?-?-?-?-?-?-?-?-?-?- Negative 140 28 -?-?-?-?-?-?-?-?-?-?-?-?- SM- no vb lof go od fm no reuglar ctx cbc gct today declined rhogam is negative 12/01/24 -?-?-?-?-?-?-?-?-?-?-?-?- 30w 0d 142 lb 6 oz (+25 lb 6 oz) 103/71 Negative -?-?-?-?-?-?-?-?-?-?-?-?- Negative 144 30 -?-?-?-?-?-?-?-?-?-?-?-?- JV- passed 3 hr. no complaints today. LArc signed. rpt plts next visit. 12/17/24 -?-?-?-?-?-?-?-?-?-?-?-?- 32w 2d 145 lb 2 oz (+28 lb 2 oz) 116/75 Negative -?-?-?-?-?-?-?-?-?-?-?-?- Negative 155 31 -?-?-?-?-?-?-?-?-?-?-?-?- KW- no vb/lof/ct x. good fm. will get repeat labs within next week. 12/31/24 -?-?-?-?-?-?-?-?-?-?-?-?- 34w 2d 149 lb 2 oz (+32 lb 2 oz) 114/76 Negative -?-?-?-?-?-?-?-?-?-?-?-?- Negative 140 32 -?-?-?-?-?-?-?-?-?-?-?-?- KW- no vb/lof/ct x. good fm. GBS next visit. growth US ordered for size less than dates. 01/12/25 -?-?-?-?-?-?-?-?-?-?-?-?- 36w 0d 152 lb 6 oz (+35 lb 6 oz) 113/80 Negative -?-?-?-?-?-?-?-?-?-?-?-?- Negative 165 35.5 Cephalic 0 -?-?-?-?-?-?-?-?-?-?-?-?- JV- gbs collecte d. needs plts repeat at 38 weeks. 01/21/25 -?-?-?-?-?-?-?-?-?-?-?-?- 37w 2d 153 lb 6 oz (+36 lb 6 oz) 111/75 Negative -?-?-?-?-?-?-?-?--?-?-?-?- Negative 160 34 -?-?-?-?-?-?-?-?-?-?-?-?- KW- no vb/lof/ct x. good fm. no concerns today. growth US ordered for S<D KW- no vb/lof/ctx. good fm. no concerns today. growth US ordered for S<D. last growth was 01/02. 01/26/25 -?-?-?-?-?-?-?-?-?-?-?-?- 38w 0d 153 lb 4 oz (+36 lb 4 oz) 128/73 Negative -?-?-?-?-?-?-?-?-?-?-?-?- Negative 156 33 Cephalic 3 -?-?-?-?-?-?-?-?-?-?-?-?- 70 -2 JV- hosp al would not do growth last week J- [facility] would not do gr owth last week. bedside scan shows <2.5% growth and fluid of 6.5. planning IOL tomorrow am. EFW 5 lbs 15 oz. NST FHR Rate Baby A Baseline: 140 Variability:: Moderate Accelerations:: 15 x 15 Decelerations:: None NST Reactive:: Yes FHR Category:: Category I Vital Signs Vital Signs Vital Signs: 01/27/25 07:34 01/27/25 07:34 01/27/25 07:34 Pulse Rate 92 Blood Pressure 123/73 H BP Systolic 123 BP Diastolic 73 Pulse Ox 97 Weight Weight: 153 lb 7.068 oz Body Mass Index (BMI) 24.0 Physical Exam Const alert, oriented x3 and no apparent distress General Appearance: cooperative, comfortable and well kempt Orientation / Consciousness: awake and oriented to person Exam Limitations: no limitations HEENT normocephalic Neck full ROM Chest inspection of chest normal Resp normal respiratory effort, normal air movement and no retractions Effort and Inspection: able to speak in complete sentences and symmetric chest movement Cardio regular rate Peripheral Pulses: pulses 2+ throughout GI normal to inspection, nondistended, normoactive bowel sounds Inspection: gravid no CVA tenderness and appearance of the vagina normal External Female Exam: normal appearance of the urethra; Negative for external lesion OB / External & Speculum: external exam normal Manual OB Exam: estimated gestational size appropriate and presentation cephalic Uterus Palpation: Negative for uterus tender Extremity normal to inspection Skin no rashes or lesions noted Neuro deep tendon reflexes 2+ bilaterally and gait normal Motor Exam: strength 5/5 throughout and clonus absent Psych Activity / Motor Behavior: appropriate eye contact Speech: normal speech Labs Labs Labs: Blood Type A NEGATIVE Antibody Screen NEGATIVE Hct 36.2 % (37-47) L Hgb 12.2 g/dL (12.0-15.0) Obstetrics Ultrasound Syphilis Total Ab Nonreactive (Nonreactive) Rubella IgG Antibody Reactive (Nonreactive) Hep Bs Antigen Non-Reactive (Nonreactive) Hepatitis C Antibody Non-Reactive (Nonreactive) Chlamydia DNA (MILES) Negative (Negative) N.gonorrhoeae DNA (MILES) Negative (Negative) HIV 1&2 Antibody Nonreactive (Nonreactive) Glucose 1 Hr 50 gm 151 mg/dL (70-140) H Gest Glucose Tolerance MG/DL Assessment & Plan (1) Encounter for induction of labor: COMMENT: pitocin/arom (2) IUGR (intrauterine growth restriction): COMMENT: <2.5% on growth scan in our office and CORBY of 6.5 at 38 weeks. IOl set up for 01/27/25 (3) Thrombocytopenia affecting : COMMENT: repeat at 32 [id number] (4) Rh negative, antepartum: COMMENT: Rhogam at 28 weeks and PRN, O- patient to bring paper to scan in at next visit. (5) Supervision of high-risk : COMMENT: PRR, , EMIR 02/09/25, boy PC Mei, Siobhan. nl anatomy (6) : QUALIFIERS: Weeks of gestation: 38 weeks Qualified Code(s): Z3A.38 - 38 weeks gestation of COMMENT: declined NIPT & ntd, Carrier testing PLAN: Plan Patient presents IOL, plan management for with pitocin/AROM. Pain management: plans epidural. GBS negative. Management of any complications: thrombocytopenia- repeat on admission 122K I have reviewed the [facility] and made any clinically relevant updates. Dr. Reardon updated on admission, exam and poc. agrees with management.
[2025-01-27 08:22] LABS: Syphilis Antibodies Nonreactive (Nonreactive)
[2025-01-27] MEDS: Lactated Ringers 1,000 ML 999 ML IV (11:15)
[2025-01-27] MEDS: fentaNYL-bupivacaine (epidural) 100 ML BAG EPIDURAL ×2 (11:44→15:03)
[2025-01-27] MEDS: Ondansetron 4 MG/2 ML Vial IV ×2 (15:03→19:39)
[2025-01-27] MEDS: Lactated Ringers 1,000 ML 200 ML IV (17:00)
[2025-01-27] MEDS: Metoclopramide 10 MG/2 ML Vial 5 MG IV (17:27)
--- NOTE | 2025-01-27 18:01 | EX.PCM.OBVAG ---
Assessment & Plan (1) Encounter for induction of labor: COMMENT: pitocin/arom (2) IUGR (intrauterine growth restriction): COMMENT: <2.5% on growth scan in our office and CORBY of 6.5 at 38 weeks. IOl set up for 01/27/25 (3) Uterine size date discrepancy : COMMENT: ultrasound 01/02- 29% AC 21. normal CORBY (4) Thrombocytopenia affecting : COMMENT: repeat at 32 [id number] (5) Abnormal glucose affecting : COMMENT: passed 3 hour (6) Rh negative, antepartum: COMMENT: Rhogam at 28 weeks and PRN, O- patient to bring paper to scan in at next visit. (7) Supervision of high-risk : COMMENT: PRR, , EMIR 02/09/25, boy MARIELLA Hurley, Siobhan. nl anatomy (8) : QUALIFIERS: Weeks of gestation: 38 weeks Qualified Code(s): Z3A.38 - 38 weeks gestation of COMMENT: declined NIPT & ntd, Carrier testing Maternal Data Information EMIR Calculator Estimated Delivery Date Method Current WG Current Estimate 02/09/25 Ultrasound #1 38w 1d Other Estimates 02/09/25 LMP (Certain) 38w 1d Final EMIR: 02/09/25 Final EMIR Source: LMP Gestational age: 38 weeks 1 day Vaginal Delivery Maternal Presentation Maternal Presentation: Medically Indicated Induction Type of Induction: Pitocin and Amniotomy Medical Reason for Induction: Other (oligohydramnios and IUGR ) Vaginal Delivery Information Procedure Performed: Spontaneous Vaginal Delivery Surgeon/Practitioner: Patito Arzola Date of Procedure: 01/27/25 Pre-Procedure Diagnosis: 29 y/o @ 38 weeks 1 day, IUGR, Oligohydramnios Post-Procedure Diagnosis: 29 y/o @ 38 weeks 1 day, IUGR, Oligohydramnios, abnormal appearing placenta, placental abruption Type of anesthesia: Epidural Estimated Blood Loss: 100cc Time of Delivery: 17:46 Findings Description of procedure: Patient began pushing and delivered the head in the ANNE presentation. The head was delivered atraumatically and a loose nuchal cord ?1 was identified and easily reduced over the infant's head. The anterior and posterior shoulders delivered without complication followed by the rest of the infant and the was placed on the maternal abdomen. Delayed cord clamping was employed for approximately 60 seconds. Cord was clamped and cut and gentle traction was applied to the cord and the placenta delivered spontaneously immediately following it was noted to be intact with three-vessel cord. The perineum and vagina were inspected and noted to have no laceration. EBL was 100 cc. Patient and tolerated delivery well. After delivery the placenta was examined and noted to have a circumvellate appearance and a large appearing abruption. 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
--- NOTE | 2025-01-27 18:09 | DCINST_ITS ---
Discharge Instructions Diet Discharge Diet: No restrictions DC O2, CPAP, BIPAP needs Home O2 Discharge instructions: No Dressing / Incision Discharge Activity: Return to Normal Activity, May Not Drive (while taking narcotic pain medications.) and May Shower May resume sexual activity in: 4-6 weeks Dressing / Incision Call your doctor if your incision/area has: Continuous Slow Oozing, Sudden Increased Bleeding, Increased Pain/ Swelling, Increased Redness and Foul Smelling Discharge Follow Up Care Please Follow Up With: Patito Arzola DO When: Call [phone] to make an appointment with your doctor in 6 weeks. If you had elevated blood pressure or 4th degree laceration, you will need to be seen in 2 weeks. Test Results: Test results from this visit will be discussed in further detail at your follow- up appointment, if applicable. Discharge Plan Admission Admit Date/Time: 01/27/25 06:58 Attending Provider: Patito Arzola Primary Care Provider: Care Physician,No Primary Discharge Orders/Prescriptions Prescriptions: No Action PNV Tabs 20-1 20 mg iron- 1 mg tablet 1 tab PO DAILY iron supplement 1 tab PO DAILY magnesium 200 mg tablet 330 mg PO QDAY Referrals / Follow Up: Care Physician,No Primary [Primary Care Provider] -
--- NOTE | 2025-01-27 18:09 | PLAC_PTH ---
PATIENT: WENDI RAPHAEL LOC: WP U#:[id number] AGE/SX: 29/F ROOM: WP016 RE01/27/[address]: Dr. Patito Arzola DO : 1995 BED: 1 DIS: 01/29/2025 SPEC #: [id number] RECD: 01/27/25 19:33 STATUS: JEROMY YOLY #: [id number] CHAVEZ: 01/27/25 18:[address]: Patito Arzola DEPT: SURGICAL PATHOLOGY RECD BY: Tu Montesinos ENTERED: 01/28/25 09:37 SP TYPE: PLACENTA OTHR DR: Dari Primary Care Phys Tissues: A - Placenta, NOS Procedures: Surgery Specimen Level V HEADER OPERATION: Vaginal delivery PRE-OP DIAGNOSIS: Abnormal appearing placenta, late deceleration TISSUE SUBMITTED: A- Placenta MICROSCOPIC DIAGNOSIS A. Placenta, 38 weeks +1 day gestational age, vaginal delivery: * Eccentrically inserted and trivascular umbilical cord without active inflammation * Marginally and circummarginately inserted membranes without active inflammation and with an 11.5 x 9.5 cm hematoma near the focus of membrane rupture * Mature (third trimester) placenta without active inflammation and compatible with the stated gestational age of 38 weeks + 1 day MICROSCOPIC DESCRIPTION Slides are reviewed. GROSS DESCRIPTION A. Received in formalin labeled with the patient's name and date of is a 330 g, 15.5 x 15.2 x 1.8 cm slightly irregular, ovoid placental disc. The membranes are velazquez-pink and translucent with approximately 70% circummarginate insertion, 30% marginal insertion and a point of rupture located 5.5 cm from the disc edge; there is an 11.5 x 9.5 cm hematoma within the membranes, abutting the point of rupture. The attached, trivascular umbilical cord measures 35.4 cm in length x 1.3 cm in diameter and inserts eccentrically, 4.2 cm from the disc edge. The surface is blue-thomson and granular. The maternal surface is red-brown with a focally torn appearance but grossly appears complete. Sectioning reveals red-brown, spongy parenchyma with a focal, possible fibrin accounting for <5% of the cut surfaces. Business Account Specialist sections are submitted as follows: A1: Membrane rollA2: Umbilical cordA3: Placenta A4: Placenta with possible fibrin SC 01/28/2025 CPT:29191
[2025-01-27] MEDS: Oxytocin 15 Units/NS 250ml 15 UNITS/250 ML IV.SOLN 83 UNITS IV (18:30)
[2025-01-27] MEDS: 0.9% Saline Lock 10 ML Syringe IV (19:40)
[2025-01-27] MEDS: Acetaminophen 500 MG Tablet 1000 MG PO (20:15)
[2025-01-27] MEDS: Ibuprofen 600 MG Tablet PO (21:43)
[2025-01-27 22:43] LABS: Pathology Specimen OB SEE PATHOLOGY REPORT
[2025-01-28] VITALS (10 sets, daily range): BP systolic 94–115; BP diastolic 51–68; PULSE 81–93; RESP 15–18; TEMP 36.3–36.5; O2SAT 97–98
[2025-01-28] MEDS: Acetaminophen 500 MG Tablet 1000 MG PO ×3 (05:45→20:02)
--- NOTE | 2025-01-28 08:01 | PCM.PN.OB ---
Subjective Subjective Patient doing well without complaints. Tolerating PO. Ambulating and voiding without difficulty. Feeding well. Denies chest pain, shortness of breath, calf pain/swelling, fevers, chills, lightheadedness or headaches. Some cramping with . Objective Data Objective Data Vital Signs: Vital Signs Temp Pulse Resp BP Pulse Ox O2 Del Method 97.6 F L 86 15 110/62 97 Room Air 01/28/25 04:40 01/28/25 04:40 01/28/25 04:40 01/28/25 04:40 01/28/25 04:40 01/28/25 04:40 Oxygen Delivery Method Room Air Weight: 153 lb 7.068 oz Body Mass Index (BMI) 24.0 Intake & Output: Intake and Output for Last 24 Hours 01/26/25 01/27/25 01/28/25 23:59 23:59 23:59 Intake Total 2468.30 / 2468.30 Output Total 700 / 700 1200 / 1200 Balance 1768.30 / 1768.30 -1200 / -1200 Lab / Micro Data 01/27/25 07:35 Labs: Laboratory Results - last 24 hr 01/27/25 07:35: Syphilis Total Ab Nonreactive, Blood Type A NEGATIVE, Antibody Screen NEGATIVE Physical Exam Const alert and oriented x3 HEENT normocephalic Eyes PERRL Neck full ROM Resp normal respiratory effort GI soft to palpation GI Narrative: FF below U Assessment & Plan (1) Spontaneous vaginal delivery: COMMENT: 01/27/25 JV. circumvallate placenta w/large abruption (2) Rh negative, antepartum: COMMENT: Rhogam at 28 weeks and PRN, O- patient to bring paper to scan in at next visit. PLAN: Plan s/p PPD # 1 1. routine post delivery care 2. breast feeding- support given 3. rh negative but also rh negative. 4. rubella immune 5. home today
[2025-01-28] MEDS: Hydrocortisone 2.5% Crm 1 APPLIC TOPICAL (08:32)
[2025-01-28] MEDS: Ibuprofen 600 MG Tablet PO ×3 (08:33→23:08)
[2025-01-28] MEDS: Senna/Docusate Sodium 1 Tablet PO (08:33)
[2025-01-29 02:00] VITALS: BP 110/60; PULSE 93; RESP 16; TEMP 36.3; O2SAT 96
[2025-01-29] MEDS: Acetaminophen 500 MG Tablet 1000 MG PO ×2 (02:00→08:09)
--- NOTE | 2025-01-29 07:50 | PCM.PN.OB ---
Subjective Subjective Patient doing well without complaints. Tolerating PO. Ambulating and voiding without difficulty. Feeding well. Denies chest pain, shortness of breath, calf pain/swelling, fevers, chills, lightheadedness. Lower abdominal cramping persists with . Objective Data Objective Data Vital Signs: Vital Signs Temp Pulse Resp BP Pulse Ox O2 Del Method 97.4 F L 93 16 110/60 96 Room Air 01/29/25 02:00 01/29/25 02:00 01/29/25 02:00 01/29/25 02:00 01/29/25 02:00 01/29/25 02:00 Oxygen Delivery Method Room Air Weight: 153 lb 7.068 oz Body Mass Index (BMI) 24.0 Intake & Output: Intake and Output for Last 24 Hours 01/27/25 01/28/25 01/29/25 23:59 23:59 23:59 Intake Total 2468.30 / 2468.30 Output Total 700 / 700 1200 / 1200 Balance 1768.30 / 1768.30 -1200 / -1200 Lab / Micro Data 01/27/25 07:35 Physical Exam Const alert and oriented x3 HEENT normocephalic Eyes PERRL Neck full ROM Resp normal respiratory effort GI soft to palpation GI Narrative: FF below U Assessment & Plan (1) Spontaneous vaginal delivery: COMMENT: 01/27/25 Charles. DAVIES. circumvallate placenta w/large abruption (2) Thrombocytopenia affecting : COMMENT: repeat at 32 [id number] (3) Rh negative, antepartum: COMMENT: Rhogam at 28 weeks and PRN, O- patient to bring paper to scan in at next visit. PLAN: Plan s/p PPD # 2 1. routine post delivery care 2. breast feeding- support given 3. rh negative 4. rubella immune 5. home today
[2025-01-29 08:08] VITALS: BP 114/57; PULSE 97; RESP 16; TEMP 36.6
[2025-01-29] MEDS: Ibuprofen 600 MG Tablet PO (11:19)
[2025-01-29] MEDS: Senna/Docusate Sodium 1 Tablet PO (12:36)
[2025-01-29 12:45] VITALS: BP 107/70; PULSE 107; RESP 16
== END 2025-01-29 14:30 | disposition home or self-care (01) | DRG 805 ==
PROVIDERS: Registered Nurse; Admitting Provider Obstetrics & Gynecology; Referring Provider Obstetrics & Gynecology; Visit Provider Obstetrics & Gynecology
DX: O36.5930 Maternal care for other known or suspected poor fetal growth, third trimester, not applicable or unspecified (principal); Z37.0 Single live birth; O45.093 Premature separation of placenta with other coagulation defect, third trimester; O41.03X0 Oligohydramnios, third trimester, not applicable or unspecified; O43.113 Circumvallate placenta, third trimester; O26.893 Other specified pregnancy related conditions, third trimester; O26.843 Uterine size-date discrepancy, third trimester; O69.81X0 Labor and delivery complicated by cord around neck, without compression, not applicable or unspecified; Z67.11 Type A blood, Rh negative; Z3A.38 38 weeks gestation of pregnancy; Z87.891 Personal history of nicotine dependence
CPT/HCPCS: 59025; 59050; 85025; 86780; 86850; 86900; 86901; 88307; 99221; A4216; G0378; J2405